=== PATIENT | female | born 1965 | race Caucasian/White ===

== ENCOUNTER → 2020-01-22 07:23 | Outpatient (BNVA) | payer OTHER, SELFPAY | PROVIDERS: PCP Nurse Practitioner Family; Visit Provider Student in an Organized Health Care Education/Training Program | DX: M65.331 Trigger finger, right middle finger (principal); G35 Multiple sclerosis; Z79.899 Other long term (current) drug therapy | CPT/HCPCS: 20550 ==

== ENCOUNTER → 2020-06-15 10:56 | Outpatient (BNVA) | payer OTHER, SELFPAY | PROVIDERS: PCP Nurse Practitioner Family; Visit Provider Obstetrics & Gynecology ==

== ENCOUNTER → 2020-07-06 10:17 | Outpatient (BNVA) | payer OTHER, SELFPAY | PROVIDERS: PCP Nurse Practitioner Family; Visit Provider Obstetrics & Gynecology | DX: Z30.432 Encounter for removal of intrauterine contraceptive device (principal) | CPT/HCPCS: 58301 ==

== ENCOUNTER 2020-10-26 09:21 | Emergency (ER) | payer OTHER, SELFPAY ==
--- NOTE | ~2020-10-26 | CT_ITS ---
EXAMINATION: CT ANGIOGRAM OF THE CHEST WITH AND WITHOUT CONTRAST (CT PULMONARY ANGIOGRAM FOR PE) CLINICAL INFORMATION: Reason for Exam elevated D-dimer. Covid positive. PE? COMPARISON: Previous chest x-ray from earlier the same day TECHNIQUE: Prior to contrast administration, noncontrast localization images were obtained. Subsequently, multidetector volumetric imaging was performed from the thoracic inlet to below the diaphragms following the administration of 65 mL Omnipaque 350 intravenous contrast. No contrast reaction reported Sagittal, coronal, and MIP oblique sagittal reformatted images were obtained on the CT workstation, uploaded to PACS, and reviewed. This CT examination was performed using dose optimization techniques as appropriate, variously including the following: *Automated exposure control *Adjustment of mA and/or kV according to patient size (this includes techniques or standardized protocols for targeted exams where dose is matched to indication/reason for exam; i.e. extremities or head) *Use of iterative reconstruction technique Total exam dose-length product 198 mGy-cm FINDINGS: QUALITY OF STUDY/CONTRAST BOLUS: Satisfactory. PULMONARY ARTERIES: No central or segmental pulmonary emboli. Evaluation of the lung bases is limited due to artifact from respiratory motion. There is question of a small subsegmental right lower lobe pulmonary embolism for example coronal constructed image 53 series 11 axial image 2 81-2 84 series 7. THORACIC AORTA: No aneurysm or dissection. LUNG: There are bilateral scattered peripheral infiltrates, greatest at the lung bases. Chest CT appearance is nonspecific but would be compatible with Covid infection. PLEURA: No pleural effusion or pneumothorax. MEDIASTINUM: Normal heart size. No pericardial effusion. No hilar or mediastinal lymphadenopathy. No evidence of septal bowing or right heart strain. CHEST WALL/AXILLA: There are bilateral breast implants. No axillary or internal mammary lymphadenopathy. OSSEOUS STRUCTURES: No acute or suspicious osseous abnormality. There are mild degenerative changes of the spine. UPPER ABDOMEN: Unremarkable. No reflux of contrast into the hepatic veins to suggest elevated right heart pressures. CT/CT angio chest PE protocol IMPRESSION: No evidence of large or central pulmonary embolism. Evaluation of smaller segmental and subsegmental pulmonary arteries is limited due to artifact from respiratory motion. Question small subsegmental right lower lobe pulmonary embolism. Bilateral peripheral infiltrates compatible with Covid infection. VTE: positive
--- NOTE | ~2020-10-26 | XR_ITS ---
EXAMINATION: XR CHEST CLINICAL INFORMATION: Dyspnea. COMPARISON: Chest 03/11/2017 TECHNIQUE: Frontal view of the chest was obtained. FINDINGS: The lungs are expanded patchy opacity seen throughout both and lower lobes suggestive of infiltrates. The upper lungs are clear. The heart size and pulmonary vascularity is normal no gross bony abnormality seen. XR/XR chest 1V IMPRESSION: Bilateral patchy infiltrates likely Covid disease.
[2020-10-26 09:39] VITALS: BP 96/68; PULSE 87; RESP 16; TEMP 36.6; O2SAT 93; BMI 22.6
--- NOTE | 2020-10-26 10:04 | ECG_ITS ---
Test Reason : FEVER Blood Pressure : / mmHG Vent. Rate : 080 BPM Atrial Rate : 080 BPM P-R Int : 122 ms QRS Dur : 080 ms QT Int : 384 ms P-R-T Axes : -04 048 046 degrees QTc Int : 442 ms Normal sinus rhythm Nonspecific T wave abnormality Abnormal ECG No previous ECGs available Referred By: Deisy Flores Electronically Signed By:ANABEL ROQUE
--- NOTE | 2020-10-26 10:31 | ED_ITS ---
HPI - General Adult General Chief complaint: Fever Stated complaint: covid + needs labs & xray Time Seen by Provider: 10/26/20 10:03 Source: patient Mode of arrival: ambulatory Limitations: no limitations History of Present Illness HPI narrative: Patient presents to ED for recurring fevers shows mild shortness of breath due to COVID. Started have symptom October 10 but was tested positive October 15. Patient states no swelling of lower extremities, calf pain, coughing up blood or pleuretic chest pain. Related Data Home Medications Medication Instructions Recorded Confirmed ascorbic acid (vitamin C) 500 mg 1 g PO DAILY tab 01/22/20 10/26/20 tablet biotin 5 mg capsule 5 mg PO DAILY 01/22/20 10/26/20 calcium carbonate 600 mg (1,500 1 tab PO DAILY 01/22/20 10/26/20 mg)-vitamin D3 200 unit tablet (Calcium 600 + D(3)) cholecalciferol (vitamin D3) 50 50 mcg PO DAILY 01/22/20 10/26/20 mcg (2,000 unit) capsule cyanocobalamin (vitamin B-12) 1,000 mcg PO DAILY 01/22/20 10/26/20 1,000 mcg capsule duloxetine 20 mg capsule,delayed 20 mg PO BID 01/22/20 10/26/20 release (Cymbalta) levonorgestrel 20 mcg/24 hours (6 INTRAUTERINE 01/22/20 10/26/20 yrs) 52 mg intrauterine device (Mirena) ocrelizumab 30 mg/mL intravenous 600 mg IV [id number] 01/22/20 10/26/20 solution (Ocrevus) Previous Rx's Medication Instructions Recorded atorvastatin 10 mg tablet 10 mg PO DAILY #30 cap 07/18/20 gabapentin 100 mg capsule 200 mg PO BEDTIME 30 Days #60 cap 10/18/20 amoxicillin 875 mg-potassium 1 tab PO BID 10 Days #20 tab 10/26/20 clavulanate 125 mg tablet (Augmentin) apixaban 5 mg (74 tabs) tablets in 5 mg PO PER PKG DIR #74 ea 10/26/20 a dose pack (Eliquis DVT-PE Treat 30D Start) dexamethasone 6 mg tablet 6 mg PO DAILY #10 tab 10/26/20 (Decadron) Allergies Allergy/AdvReac Type Severity Reaction Status Date / Time morphine [MORPHINE] Allergy Intermediate HIVES, Verified 07/06/20 10:23 vomiting oxycodone [OXYCODONE] Allergy Intermediate VOMITING Verified 07/06/20 10:23 acetaminophen [Percocet] Allergy Unknown hives Verified 07/06/20 10:23 benzonatate Allergy Unknown headaches Verified 07/06/20 10:23 meperidine [From Demerol] Allergy Unknown swelling Verified 07/06/20 10:23 NSAIDS (Non-Steroidal Allergy Unknown swelling Verified 07/06/20 10:23 Anti-Inflamma meloxicam AdvReac Unknown ankle Verified 07/06/20 10:23 swelling paroxetine [Paxil] AdvReac Unknown headaches Verified 07/06/20 10:23 Review of Systems Constitutional: Constitutional: Reports as per HPI and Reports no additional constitutional complaints Eyes: Eyes: Reports as per HPI and Reports no additional eye complaints ENT: Reports system reviewed and no additional complaints, except as documented and Reports as per HPI Cardiovascular: Cardiovascular: Reports as per HPI, Reports no additional cardiovascular complaints, Reports chest pain (Resolved) and Reports dyspnea (Resolved) Respiratory: Respiratory: Reports as per HPI, Reports no additional respiratory complaints and Reports dyspnea (Resolved) Gastrointestinal: Gastrointestinal: Reports as per HPI and Reports no additional gastrointestinal complaints Genitourinary: Genitourinary: Reports no additional female genitourinary complaints and Reports as per HPI Musculoskeletal: Musculoskeletal: Reports no additional musculoskeletal complaints and Reports as per HPI Neurologic: Reports system reviewed and no additional complaints, except as documented and Reports as per HPI Psychiatric: Psychiatric: Reports no additional psychiatric complaints and Reports as per HPI [facility] Past Medical History Medical History Stark's palsy Complex ovarian cyst Diverticulitis Dyslipidemia IBS (irritable bowel syndrome) Kidney stones Menopause Multiple sclerosis Myoma Neuropathy Physical exam Spinal cord lesion Surgical History History of adenoidectomy History of breast augmentation History of section History of shoulder surgery History of tonsillectomy History of umbilical hernia repair Family History Family History Father Heart disease CVD (cardiovascular disease) Mother HTN (hypertension) Maternal Grandfather No problems noted. Maternal Grandmother No problems noted. Paternal Grandfather No problems noted. Paternal Grandmother CVD (cardiovascular disease) Brother No problems noted. Brother No problems noted. Son No problems noted. Son Type 1 diabetes Social History Social History Alcohol intake: never Patient Tobacco Use Status: Tobacco use Unknown Advance Directives: No Advance Directives Information Provided: No Patient : No Physical Exam Vital Signs: Vital Signs: Last Vital Signs Temp 98.6 F 10/26/20 15:06 Pulse 76 10/26/20 15:06 Resp 18 10/26/20 15:06 BP 127/84 10/26/20 15:06 Pulse Ox 96 10/26/20 16:14 Body Mass Index 22.6 Const: General: cooperative, healthy appearing, comfortable, no acute distress, well developed, alert, awake and Physically active Orientation/consciousness: patient oriented x3 HENMT: Head: Yes normal to inspection, Yes No palpable skull fracture present, Yes normocephalic, Yes atraumatic and No abrasion Eyes: General: appearance normal, both eyes and all related structures Neck: Neck: Yes normal visual inspection, Yes full ROM, Yes no lymphadenopathy, Yes no meningeal signs, Yes trachea midline, Yes supple and No tender Chest: Chest palpation & inspection: normal inspection of the chest and normal palpation of entire chest wall Resp: Effort & Inspection: normal respiratory effort and able to speak in complete sentences Auscultation: clear to auscultation bilaterally Cardio: Jugular venous distension: no JVD Heart sounds: S1 normal heart sound present and S2 normal heart sound present GI: Inspection: Yes normal to inspection and No abdominal wall ecchymosis Palpation (GI): Soft to palpation, not firm, nontender, no guarding and not rigid : General: No CVA tenderness and Yes no CVA tenderness Back/Spine/Pelvis: Back: no CVA tenderness, No CVA tenderness and No back tenderness Skin: General skin exam: no rashes or lesions noted and elasticity normal Neuro: General: patient oriented x3, gait normal, no meningeal signs and CN's II-XI intact bilaterally Cranial nerves: Yes CN's II-XII intact bilaterally Extrem: Other: Lower extremities negative for swelling, pitting edema, calf te nderness General: Yes normal to inspection and Yes full ROM Psych: Appearance: grossly normal, well kempt and not disheveled Course Course Course Narrative: Will do COVID labs and chest x-ray. Reevaluation(s) Reevaluation #1: Patient O2 saturation on room air is 98%. On ambulation O2 saturation 96%. Due to elevated D-dimer patient was sent for chest CT which showed COVID ground-glass opacities with possible questionable right small pulmonary embolus. Patient started having symptoms of COVID since October 10. Spoke with hospitalist Dr. Sesay who states patient could be discharged with Eliquis but I need to confer with Dr. Flores. Dr. Flores spoke with ICU doctor, Dr. Kauffman of ICU who agrees patient could be discharged with Eliquis for the small PE. Patient informed to return to the ED immediately should any chest pain, shortness of breath, syncope, weakness, dizziness, any other concerning symptoms. EKG negative STEMI Time: 17:15 Medical Decision Making MDM Narrative Medical decision making narrative: COVID. PE Lab Data Result diagrams: 10/26/20 10:45 10/26/20 10:45 Labs: Lab Results 10/26/20 10/26/20 10/26/20 Range/Units 10:45 10:45 10:45 WBC 5.2 (4.8-10.8) X10*3/uL RBC 4.23 (4.20-5.50) X10*6/uL Hgb 12.4 (12.0-16.0) g/dl Hct 36.1 L (37-47) % MCV 85.3 (80-98) fL MCH 29.3 (27.0-33.0) pg MCHC 34.3 (31.0-35.0) g/dl RDW 12.8 (11.0-16.0) % Plt Count 344 (160-400) X10*3/uL MPV 9.1 L (9.4-12.3) fL Immature Gran % (Auto) 1.0 H (0.0-0.4) % Neut % (Auto) 72.5 (45-73) % Lymph % (Auto) 11.5 L (20-40) % [place] % (Auto) 14.8 H (2-11) % Eos % (Auto) 0.2 (0-4) % Baso % (Auto) 0.0 (0-2) % Lymph # (Auto) 0.6 L (1.2-4.9) X10*3/uL [place] # (Auto) 0.8 (0.1-1.2) X10*3/uL Eos # (Auto) 0.0 (0.0-0.4) X10*3/uL Baso # (Auto) 0.0 (0.0-0.2) X10*3/uL Abs Immat Gran (auto) 0.05 H (0.00-0.03) X10*3/uL Absolute Neuts (auto) 3.8 (2.0-8.3) X10*3/uL Absolute Nucleated RBC 0.000 (0.0-0.012) X10*3/uL Nucleated RBC % (auto) 0.0 (0.0-0.2) /100WBC PT (9.9-13.0) SEC INR (0.9-1.1) APTT (24.1-38.0) SEC D-Dimer NG/ML Sodium 136 (135-145) mmol/L Potassium 3.4 (3.3-5.1) mmol/L Chloride 102 (96-108) mmol/L Carbon Dioxide 24 (22-29) mmol/L Anion Gap 13 (12-20) BUN 14 (9-16) mg/dL Creatinine 0.68 (0.5-1.4) mg/dL Estim Creat Clear Calc 80.7 Estimated GFR > 60 Random Glucose 91 (60-115) mg/dL Lactic Acid (0.5-2.0) mmol/L Calcium 8.6 (8.4-10.2) mg/dL Magnesium (1.6-2.6) mg/dL Ferritin (10-250) ng/mL Total Bilirubin (0.0-1.0) mg/dL Direct Bilirubin (0.0-0.5) mg/dL AST (5-31) U/L ALT (0-31) U/L Alkaline Phosphatase (39-117) U/L Lactate Dehydrogenase (122-220) U/L Troponin I High Sens (<3.5-17.0) ng/L C-Reactive Protein 6.55 H (< or = 0.50) mg/dL Total Protein (6.5-8.0) g/dL Albumin (3.5-5.0) g/dL COVID-19 (MIKE) Negative (Negative) COVID-19 Clin Com See Note 10/26/20 10/26/20 10/26/20 Range/Units 10:45 10:45 10:45 WBC (4.8-10.8) X10*3/uL RBC (4.20-5.50) X10*6/uL Hgb (12.0-16.0) g/dl Hct (37-47) % MCV (80-98) fL MCH (27.0-33.0) pg MCHC (31.0-35.0) g/dl RDW (11.0-16.0) % Plt Count (160-400) X10*3/uL MPV (9.4-12.3) fL Immature Gran % (Auto) (0.0-0.4) % Neut % (Auto) (45-73) % Lymph % (Auto) (20-40) % [place] % (Auto) (2-11) % Eos % (Auto) (0-4) % Baso % (Auto) (0-2) % Lymph # (Auto) (1.2-4.9) X10*3/uL [place] # (Auto) (0.1-1.2) X10*3/uL Eos # (Auto) (0.0-0.4) X10*3/uL Baso # (Auto) (0.0-0.2) X10*3/uL Abs Immat Gran (auto) (0.00-0.03) X10*3/uL Absolute Neuts (auto) (2.0-8.3) X10*3/uL Absolute Nucleated RBC (0.0-0.012) X10*3/uL Nucleated RBC % (auto) (0.0-0.2) /100WBC PT (9.9-13.0) SEC INR (0.9-1.1) APTT (24.1-38.0) SEC D-Dimer NG/ML Sodium (135-145) mmol/L Potassium (3.3-5.1) mmol/L Chloride (96-108) mmol/L Carbon Dioxide (22-29) mmol/L Anion Gap (12-20) BUN (9-16) mg/dL Creatinine (0.5-1.4) mg/dL Estim Creat Clear Calc Estimated GFR Random Glucose (60-115) mg/dL Lactic Acid 0.8 (0.5-2.0) mmol/L Calcium (8.4-10.2) mg/dL Magnesium 2.0 (1.6-2.6) mg/dL Ferritin 670 H (10-250) ng/mL Total Bilirubin 0.6 (0.0-1.0) mg/dL Direct Bilirubin 0.2 (0.0-0.5) mg/dL AST 64 H (5-31) U/L ALT 80 H (0-31) U/L Alkaline Phosphatase 72 (39-117) U/L Lactate Dehydrogenase 395 H (122-220) U/L Troponin I High Sens 4.2 (<3.5-17.0) ng/L C-Reactive Protein (< or = 0.50) mg/dL Total Protein 6.0 L (6.5-8.0) g/dL Albumin 3.6 (3.5-5.0) g/dL COVID-19 (MIKE) (Negative) COVID-19 Clin Com 10/26/20 Range/Units 10:46 WBC (4.8-10.8) X10*3/uL RBC (4.20-5.50) X10*6/uL Hgb (12.0-16.0) g/dl Hct (37-47) % MCV (80-98) fL MCH (27.0-33.0) pg MCHC (31.0-35.0) g/dl RDW (11.0-16.0) % Plt Count (160-400) X10*3/uL MPV (9.4-12.3) fL Immature Gran % (Auto) (0.0-0.4) % Neut % (Auto) (45-73) % Lymph % (Auto) (20-40) % [place] % (Auto) (2-11) % Eos % (Auto) (0-4) % Baso % (Auto) (0-2) % Lymph # (Auto) (1.2-4.9) X10*3/uL [place] # (Auto) (0.1-1.2) X10*3/uL Eos # (Auto) (0.0-0.4) X10*3/uL Baso # (Auto) (0.0-0.2) X10*3/uL Abs Immat Gran (auto) (0.00-0.03) X10*3/uL Absolute Neuts (auto) (2.0-8.3) X10*3/uL Absolute Nucleated RBC (0.0-0.012) X10*3/uL Nucleated RBC % (auto) (0.0-0.2) /100WBC PT 12.5 (9.9-13.0) SEC INR 1.1 (0.9-1.1) APTT 30.4 (24.1-38.0) SEC D-Dimer 913 NG/ML Sodium (135-145) mmol/L Potassium (3.3-5.1) mmol/L Chloride (96-108) mmol/L Carbon Dioxide (22-29) mmol/L Anion Gap (12-20) BUN (9-16) mg/dL Creatinine (0.5-1.4) mg/dL Estim Creat Clear Calc Estimated GFR Random Glucose (60-115) mg/dL Lactic Acid (0.5-2.0) mmol/L Calcium (8.4-10.2) mg/dL Magnesium (1.6-2.6) mg/dL Ferritin (10-250) ng/mL Total Bilirubin (0.0-1.0) mg/dL Direct Bilirubin (0.0-0.5) mg/dL AST (5-31) U/L ALT (0-31) U/L Alkaline Phosphatase (39-117) U/L Lactate Dehydrogenase (122-220) U/L Troponin I High Sens (<3.5-17.0) ng/L C-Reactive Protein (< or = 0.50) mg/dL Total Protein (6.5-8.0) g/dL Albumin (3.5-5.0) g/dL COVID-19 (MIKE) (Negative) COVID-19 Clin Com ECG Data Interpretation: Normal sinus rhythm. Reticular 89. Pr interval 122. QRS 80. QTC 442. Negative Stemi Discharge Plan Discharge Clinical Impression: COVID, Pulmonary embolism Patient Disposition: Home, Self-Care Instructions: COVID-19 (Coronavirus Disease 2019) (ED) Additional Instructions: Your CT scan showed small pulmonary embolus in your right lung and confirmed C OVID (bilateral infiltrates) . He will be discharged with blood thinner called Sonya. Return to the ED for worsening chest pain, shortness of breath, passing out, swelling of lower extremities, calf pain, rectal bleeding, vomiting blood, or any other concerning symptoms. Prescriptions: Kali Hassan DVT-PE Treat 30D Start 5 mg (74 tabs) tablets,dose pack 5 mg PO PER PKG DIR Qty: 74 RF: 0 dexamethasone [Decadron] 6 mg tablet 6 mg PO DAILY Qty: 10 RF: 0 No Action atorvastatin 10 mg tablet 10 mg PO DAILY Qty: 30 RF: 4 gabapentin 100 mg capsule 200 mg PO BEDTIME 30 Days Qty: 60 RF: 3 amoxicillin-pot clavulanate [Augmentin] 875-125 mg tablet 1 tab PO BID 10 Days Qty: 20 RF: 0 duloxetine [Cymbalta] 20 mg capsule,delayed release(DR/EC) 20 mg PO BID RF: 0 Mirena 20 mcg/24 hours (6 yrs) 52 mg intrauterine device intrauterine RF: 0 Ocrevus 30 mg/mL solution 600 mg IV [id number] RF: 0 cyanocobalamin (vitamin B-12) 1,000 mcg capsule 1,000 mcg PO DAILY RF: 0 biotin 5 mg capsule 5 mg PO DAILY RF: 0 ascorbic acid (vitamin C) 500 mg tablet 1 g PO DAILY RF: 0 cholecalciferol (vitamin D3) 50 mcg (2,000 unit) capsule 50 mcg PO DAILY RF: 0 calcium carbonate-vitamin D3 [Calcium 600 + D(3)] 600 mg(1,500mg) -200 unit tablet 1 tab PO DAILY RF: 0 Referrals: Constantino Jain, [employer] [facility] [Primary Care Provider] - 2 days (COVID with small pulmonary embolus) Interventions: ED Discharge Assessment Last Done: 10/26/20 17:35 Discharge Date/Time: 10/26/20 17:37
[2020-10-26 10:52] LABS: Eosinophils Percent Auto 0.2 % (0-4); Hematocrit 36.1 % (37-47); Hemoglobin 12.4 g/dl (12.0-16.0); Imm Gran Abs Auto 0.05 X10*3/uL (0.00-0.03); Lymphocytes Absolute Auto 0.6 X10*3/uL (1.2-4.9); Lymphocytes Percent Auto 11.5 % (20-40); MANUAL DIFF FLAG NO; Mean Corpuscular HGB Conc 34.3 g/dl (31.0-35.0); Mean Corpuscular Hemoglobin 29.3 pg (27.0-33.0); Mean Corpuscular Volume 85.3 fL (80-98); Mean Platelet Volume 9.1 fL (9.4-12.3); Monocytes Absolute Auto 0.8 X10*3/uL (0.1-1.2); Monocytes Percent Auto 14.8 % (2-11); Neutrophils Absolute Auto 3.8 X10*3/uL (2.0-8.3); Neutrophils Percent Auto 72.5 % (45-73); Platelet Count 344 X10*3/uL (160-400); Red Blood Count 4.23 X10*6/uL (4.20-5.50); Red Cell Distribution Width 12.8 % (11.0-16.0); White Blood Count 5.2 X10*3/uL (4.8-10.8)
[2020-10-26 11:04] LABS: Lactic Acid 0.8 mmol/L (0.5-2.0)
[2020-10-26 11:08] LABS: COVID-19 Test Negative (Negative)
[2020-10-26 11:09] LABS: Anion Gap 13 (12-20); Blood Urea Nitrogen 14 mg/dL (9-16); C Reactive Protein 6.55 mg/dL (< or = 0.50); Calcium 8.6 mg/dL (8.4-10.2); Carbon Dioxide 24 mmol/L (22-29); Chloride 102 mmol/L (96-108); Creatinine Clr Calc Pharmacy 80.7; Estimated Glomerular Filt Rate > 60; Glucose Random 91 mg/dL (60-115); Potassium 3.4 mmol/L (3.3-5.1); Sodium 136 mmol/L (135-145)
[2020-10-26 11:11] LABS: Alanine Aminotransferase 80 U/L (0-31); Albumin Level 3.6 g/dL (3.5-5.0); Alkaline Phosphatase 72 U/L (39-117); Aspartate Amino Transferase 64 U/L (5-31); Bilirubin Direct 0.2 mg/dL (0.0-0.5); Bilirubin Total 0.6 mg/dL (0.0-1.0); Lactate Dehydrogenase 395 U/L (122-220)
[2020-10-26 11:12] LABS: Troponin-I High Sensitivity 4.2 ng/L (<3.5-17.0)
[2020-10-26 11:28] LABS: Ferritin 670 ng/mL (10-250)
[2020-10-26 11:34] LABS: D Dimer 913 NG/ML
[2020-10-26 13:14] VITALS: BP 129/75; PULSE 77; RESP 15; TEMP 37; O2SAT 96
[2020-10-26] MEDS: iohexoL 350 MG/ML 100 ML INFUS..BTL 65 ML IV (13:26)
[2020-10-26 15:06] VITALS: BP 127/84; PULSE 76; RESP 18; TEMP 37; O2SAT 98
[2020-10-26 16:12] LABS: INTERNATIONAL NORM RATIO 1.1 (0.9-1.1); Prothrombin Time 12.5 SEC (9.9-13.0)
[2020-10-26 16:14] VITALS: O2SAT 96
[2020-10-26 16:15] LABS: Partial Thromboplastin Time 30.4 SEC (24.1-38.0)
== END 2020-10-26 17:37 | disposition home or self-care (01) ==
PROVIDERS: Physician Assistant; Emergency Provider Emergency Medicine; PCP Nurse Practitioner Family
DX: U07.1 COVID-19 (principal); I26.99 Other pulmonary embolism without acute cor pulmonale; R50.9 Fever, unspecified
CPT/HCPCS: 36415; 71045; 71275; 80048; 80076; 82728; 83605; 83615; 83735; 84484; 85025; 85379; 85610; 85730; 86140; 87040; 87205; 87635; 93005; 99284; Q9967

== ENCOUNTER 2020-11-01 13:59 | Emergency (ER) | payer OTHER, SELFPAY ==
--- NOTE | ~2020-11-01 | XR_ITS ---
EXAMINATION: XR CHEST CLINICAL INFORMATION: Prior infiltrates COMPARISON: Prior chest radiograph 10/26/2020 and TECHNIQUE: Frontal view of the chest was obtained. FINDINGS: Compared to the prior chest radiograph, there is been some improvement in appearances. Bibasilar infiltrates persist. Of course, more extensive infiltrates were seen on the CT scan which is much more sensitive than the chest radiograph. XR/XR chest 1V IMPRESSION: Chest radiograph demonstrates improvement appearances with residual lower lobe infiltrates.
[2020-11-01 14:32] VITALS: BP 113/78; PULSE 86; RESP 18; TEMP 36.9; O2SAT 96; BMI 23.1
--- NOTE | 2020-11-01 17:53 | ED_ITS ---
HPI - Recheck/Abnormal Lab/Rx General Chief Complaint: Recheck/Abnormal Lab/Rx Stated Complaint: positive blood cultures Time Seen by Provider: 11/01/20 16:40 Source: patient Mode of arrival: ambulatory Limitations: no limitations History of Present Illness HPI narrative: 55-year-old female with a past medical history of MS complaints of abnormal blood cultures. Patient was seen here on October 26 and diagnos ed with COVID pneumonia with PE. She was started on Eliquis and discharged home. Patient tells me she initially tested positive on October 13. On day 13 she was having continued fevers with SOB, chest tightness, cough prompting ED visit. She had blood culture sent the day. Patient tells me she spoke to her primary care doctor after discharge. She had been taking her Eliquis and dexamethasone course. He did start her on a 5 day course of Levaquin which she completed yesterday. She tells me she has not have a fever and greater than 3 days. She is still having continued cough, chest tightness and shortness of breath times. Related Data Home Medications Medication Instructions Recorded Confirmed ascorbic acid (vitamin C) 500 mg 1 g PO DAILY tab 01/22/20 11/01/20 tablet cholecalciferol (vitamin D3) 50 50 mcg PO DAILY 01/22/20 11/01/20 mcg (2,000 unit) capsule cyanocobalamin (vitamin B-12) 1,000 mcg PO DAILY 01/22/20 11/01/20 1,000 mcg capsule duloxetine 20 mg capsule,delayed 40 mg PO BEDTIME 01/22/20 11/01/20 release (Cymbalta) levonorgestrel 20 mcg/24 hours (6 INTRAUTERINE 01/22/20 10/26/20 yrs) 52 mg intrauterine device (Mirena) ocrelizumab 30 mg/mL intravenous 600 mg IV [id number] 01/22/20 10/26/20 solution (Ocrevus) Previous Rx's Medication Instructions Recorded atorvastatin 10 mg tablet 10 mg PO DAILY #30 cap 07/18/20 gabapentin 100 mg capsule 200 mg PO BEDTIME 30 Days #60 cap 10/18/20 apixaban 5 mg (74 tabs) tablets in 5 mg PO PER PKG DIR #74 ea 10/26/20 a dose pack (Eliquis DVT-PE Treat 30D Start) dexamethasone 6 mg tablet 6 mg PO DAILY #10 tab 10/26/20 (Decadron) Allergies Allergy/AdvReac Type Severity Reaction Status Date / Time morphine [MORPHINE] Allergy Intermediate HIVES, Verified 07/06/20 10:23 vomiting oxycodone [OXYCODONE] Allergy Intermediate VOMITING Verified 07/06/20 10:23 acetaminophen [Percocet] Allergy Unknown hives Verified 07/06/20 10:23 benzonatate Allergy Unknown headaches Verified 07/06/20 10:23 meperidine [From Demerol] Allergy Unknown swelling Verified 07/06/20 10:23 NSAIDS (Non-Steroidal Allergy Unknown swelling Verified 07/06/20 10:23 Anti-Inflamma meloxicam AdvReac Unknown ankle Verified 07/06/20 10:23 swelling paroxetine [Paxil] AdvReac Unknown headaches Verified 07/06/20 10:23 Review of Systems Review of Systems: Yes all other systems are reviewed and are negative Constitutional: Constitutional: Reports no additional constitutional complaints, Denies body ache(s), Denies chills, Denies fever(s), Denies headache(s) and Denies weakness Eyes: Eyes: Reports no additional eye complaints and Denies change in vision ENT: Reports system reviewed and no additional complaints, except as d ocumented, Denies dizziness, Denies headache(s), Denies nasal congestion, Denies nasal discharge and Denies neck pain Cardiovascular: Cardiovascular: Reports no additional cardiovascular complaints, Reports chest pain (chest tightness), Denies leg edema and Reports dyspnea Respiratory: Respiratory: Reports no additional respiratory complaints, Reports cough and Reports dyspnea Gastrointestinal: Gastrointestinal: Reports no additional gastrointestinal complaints, Denies abdominal pain, Denies diarrhea, Denies nausea and Denies vomiting Genitourinary: Genitourinary: Reports no additional female genitourinary complaints and Denies urinary incontinence Musculoskeletal: Musculoskeletal: Reports no additional musculoskeletal c omplaints, Denies back pain, Denies arthralgias, Denies joint swelling, Denies neck pain, Denies numbness and Denies tingling Integumentary/Breasts: Skin/Breast: Reports system reviewed and no additional complaints, except as docu and Denies rash Neurologic: Reports system reviewed and no additional complaints, except as documented, Denies Abnormal speech present, Denies dizziness, Denies headache(s), Denies numbness, Denies tingling and Denies weakness [facility] Past Medical History Attestation statement: The following information was validated with the patient. Source: old records reviewed and nursing notes reviewed Medical History Stark's palsy Complex ovarian cyst Diverticulitis Dyslipidemia IBS (irritable bowel syndrome) Kidney stones Menopause Multiple sclerosis Myoma Neuropathy Physical exam Spinal cord lesion Surgical History History of adenoidectomy History of breast augmentation History of section History of shoulder surgery History of tonsillectomy History of umbilical hernia repair Family History Family History Father Heart disease CVD (cardiovascular disease) Mother HTN (hypertension) Maternal Grandfather No problems noted. Maternal Grandmother No problems noted. Paternal Grandfather No problems noted. Paternal Grandmother CVD (cardiovascular disease) Brother No problems noted. Brother No problems noted. Son No problems noted. Son Type 1 diabetes Social History Social History Alcohol intake: never Patient Tobacco Use Status: Tobacco use Unknown Advance Directives: No Advance Directives Information Provided: No Patient : No Physical Exam Vital Signs: Vital Signs: Last Vital Signs Temp 98.7 F 11/01/20 19:30 Pulse 78 11/01/20 19:30 Resp 18 11/01/20 19:30 BP 109/72 11/01/20 19:30 Pulse Ox 97 11/01/20 19:30 Body Mass Index 23.1 Const: General: cooperative, healthy appearing, comfortable and no acute distress Orientation/consciousness: patient oriented x3 Limitations: no limitations HENMT: Head: Yes normal to inspection Ears: hearing grossly normal bilaterally General nose exam: Normal external nose present Face and sinus: Yes normal facial exam Mouth: Normal oral and palatal mucosa present Throat: Yes posterior oropharynx normal Eyes: General: appearance normal, both eyes and all related structures Pupils: Equal, round and reactive pupils present Neck: Neck: Yes normal visual inspection Chest: Chest palpation & inspection: normal inspection of the chest Resp: Effort & Inspection: normal respiratory effort Auscultation: clear to auscultation bilaterally Cardio: Rate: regular rate Rhythm: regular rhythm Peripheral pulses: Peripheral pulses 2+ throughout GI: Inspection: Yes normal to inspection Palpation (GI): Soft to palpation and nontender Auscultation: normal bowel sounds Back/Spine/Pelvis: Thoracic/Lumbar Spine: thoracic and lumbar spine normal to inspection Skin: General skin exam: no rashes or lesions noted Neuro: General: patient oriented x3, no focal motor deficits and normal sensation to monofilament Cranial nerves: Yes Equal, round and reactive pupils present Cognition (Neuro): normal cognition Speech: No Abnormal speech present Gait exam (Neuro): Normal gait present Motor exam (neuro): 5/5 motor strength present throughout Extrem: General: Yes normal to inspection, Yes no pedal edema and Yes no calf tenderness Course Course Course Narrative: 54 yo female recovered from COVID but complicated by a bilateral pneumonia and pulmonary embolism is status post course of Levaquin and dexamethasone currently on Eliquis here after being called with reports of Gram-negative rods and 1 of 2 blood cultures. Patient tells me she has not had a fever in 3 days. She still is having continued cough, shortness of breath and chest pain. Vital signs are stable. Exam is benign. Will repeat labs, blood cultures, CXR, UA, covid screen. Antibiotics given -1829-d/w Dr Woodruff. Patient is now 6 days out from +bcx. Second bcx was negative. She completed a five day course of levaquin outpatient yesterday. Will repeat labs-disposition pending. Blood culture shows gram negative rods. No identification or susceptibility identified. Spoke to micro who tell me the sample was sent to [facility] for this on 10/30 and it is not resulted. They will contact for update. 2100-reviewed labs. No leukocytosis. Normal lactic acid. Follow up for additional labs actually are improved when compared to previous. UA shows no evidence of infection. Chest x-ray shows improving pneumonia. The case was discussed with attending Dr Woodruff. The blood cultures were from approximately 6 days ago. The patient clinically appears to be improved and did complete a course of Levaquin outpatient. At this point I do not feel like she needs to be admitted to the hospital and her repeat blood cultures were sent which we can follow. I discussed this at length with the patient. She is very comfortable going home and following up with her blood cultures. I did instruct her to return if she were to develop a fever or feel like her symptoms are worsening. Comfortable with plan for discharge MDM - Recheck/Abnormal Lab/Rx Medical Records Attestation: I reviewed the patient's medical records. Lab Data Attestation: I reviewed the patient's lab results. Result diagrams: 11/01/20 18:45 11/01/20 18:45 Labs: Lab Results 11/01/20 11/01/20 11/01/20 Range/Units 18:45 18:45 18:45 WBC 10.1 (4.8-10.8) X10*3/uL RBC 4.46 (4.20-5.50) X10*6/uL Hgb 13.0 (12.0-16.0) g/dl Hct 38.6 (37-47) % MCV 86.5 (80-98) fL MCH 29.1 (27.0-33.0) pg MCHC 33.7 (31.0-35.0) g/dl RDW 12.8 (11.0-16.0) % Plt Count 408 H (160-400) X10*3/uL MPV 8.9 L (9.4-12.3) fL Immature Gran % (Auto) 4.2 H (0.0-0.4) % Neut % (Auto) 75.9 H (45-73) % Lymph % (Auto) 12.7 L (20-40) % Miller % (Auto) 7.0 (2-11) % Eos % (Auto) 0.0 (0-4) % Baso % (Auto) 0.2 (0-2) % Lymph # (Auto) 1.3 (1.2-4.9) X10*3/uL Miller # (Auto) 0.7 (0.1-1.2) X10*3/uL Eos # (Auto) 0.0 (0.0-0.4) X10*3/uL Baso # (Auto) 0.0 (0.0-0.2) X10*3/uL Abs Immat Gran (auto) 0.42 H (0.00-0.03) X10*3/uL Absolute Neuts (auto) 7.6 (2.0-8.3) X10*3/uL Absolute Nucleated RBC 0.000 (0.0-0.012) X10*3/uL Nucleated RBC % (auto) 0.0 (0.0-0.2) /100WBC Sodium 137 (135-145) mmol/L Potassium 4.5 D (3.3-5.1) mmol/L Chloride 101 (96-108) mmol/L Carbon Dioxide 27 (22-29) mmol/L Anion Gap 14 (12-20) BUN 12 (9-16) mg/dL Creatinine 0.66 (0.5-1.4) mg/dL Estim Creat Clear Calc 83.1 Estimated GFR > 60 Random Glucose 171 H (60-115) mg/dL Lactic Acid 0.9 (0.5-2.0) mmol/L Calcium 9.6 D (8.4-10.2) mg/dL Ferritin 375 H (10-250) ng/mL Total Bilirubin 0.6 (0.0-1.0) mg/dL Direct Bilirubin 0.2 (0.0-0.5) mg/dL AST 30 D (5-31) U/L ALT 90 H (0-31) U/L Alkaline Phosphatase 78 (39-117) U/L Lactate Dehydrogenase 276 H (122-220) U/L C-Reactive Protein 1.15 H (< or = 0.50) mg/dL Total Protein 6.4 L (6.5-8.0) g/dL Albumin 3.8 (3.5-5.0) g/dL Procalcitonin ng/mL Urine Color Urine Appearance Urine pH (5.0-8.0) Ur Specific [place] (1.005-1.025) Urine Protein (NEG-TRACE) MG/DL Urine Glucose (UA) (NEG) MG/DL Urine Ketones (NEG) MG/DL Urine Blood (NEG) Urine Nitrite (NEG) Ur Leukocyte Esterase (NEG) COVID-19 (MIKE) (Negative) COVID-19 Clin Com 11/01/20 11/01/20 11/01/20 Range/Units 18:45 18:47 19:27 WBC (4.8-10.8) X10*3/uL RBC (4.20-5.50) X10*6/uL Hgb (12.0-16.0) g/dl Hct (37-47) % MCV (80-98) fL MCH (27.0-33.0) pg MCHC (31.0-35.0) g/dl RDW (11.0-16.0) % Plt Count (160-400) X10*3/uL MPV (9.4-12.3) fL Immature Gran % (Auto) (0.0-0.4) % Neut % (Auto) (45-73) % Lymph % (Auto) (20-40) % Miller % (Auto) (2-11) % Eos % (Auto) (0-4) % Baso % (Auto) (0-2) % Lymph # (Auto) (1.2-4.9) X10*3/uL Miller # (Auto) (0.1-1.2) X10*3/uL Eos # (Auto) (0.0-0.4) X10*3/uL Baso # (Auto) (0.0-0.2) X10*3/uL Abs Immat Gran (auto) (0.00-0.03) X10*3/uL Absolute Neuts (auto) (2.0-8.3) X10*3/uL Absolute Nucleated RBC (0.0-0.012) X10*3/uL Nucleated RBC % (auto) (0.0-0.2) /100WBC Sodium (135-145) mmol/L Potassium (3.3-5.1) mmol/L Chloride (96-108) mmol/L Carbon Dioxide (22-29) mmol/L Anion Gap (12-20) BUN (9-16) mg/dL Creatinine (0.5-1.4) mg/dL Estim Creat Clear Calc Estimated GFR Random Glucose (60-115) mg/dL Lactic Acid (0.5-2.0) mmol/L Calcium (8.4-10.2) mg/dL Ferritin (10-250) ng/mL Total Bilirubin (0.0-1.0) mg/dL Direct Bilirubin (0.0-0.5) mg/dL AST (5-31) U/L ALT (0-31) U/L Alkaline Phosphatase (39-117) U/L Lactate Dehydrogenase (122-220) U/L C-Reactive Protein (< or = 0.50) mg/dL Total Protein (6.5-8.0) g/dL Albumin (3.5-5.0) g/dL Procalcitonin 0.12 ng/mL Urine Color YELLOW Urine Appearance HAZY Urine pH 6.0 (5.0-8.0) Ur Specific [place] 1.025 (1.005-1.025) Urine Protein NEG (NEG-TRACE) MG/DL Urine Glucose (UA) NEG (NEG) MG/DL Urine Ketones NEG (NEG) MG/DL Urine Blood NEG (NEG) Urine Nitrite NEG (NEG) Ur Leukocyte Esterase NEG (NEG) COVID-19 (MIKE) Negative (Negative) COVID-19 Clin Com See Note Imaging Data Chest x-ray: Attestation: I personally reviewed and interpreted this imaging study as follows: Radiologist's impression: EXAMINATION: XR CHEST CLINICAL INFORMATION: Prior infiltrates COMPARISON: Prior chest radiograph 10/26/2020 and TECHNIQUE: Frontal view of the chest was obtained. FINDINGS: Compared to the prior chest radiograph, there is been some improvement in appearances. Bibasilar infiltrates persist. Of course, more extensive infiltrates were seen on the CT scan which is much more sensitive than the chest radiograph. XR/XR chest 1V IMPRESSION: Chest radiograph demonstrates improvement appearances with residual lower lobe infiltrates. Discharge Plan Discharge Clinical Impression: Abnormal laboratory test, COVID-19 Patient Disposition: Home, Self-Care Instructions: COVID-19 (Coronavirus Disease 2019) (ED) Additional Instructions: You were told to return to the emergency department for an abnormal blood culture. One of 2 of your blood culture showed bacteria. You were treated with outpatient antibiotics for 5 days by yourr primary care doctor. This is likely sufficient for treatment. We did repeat these labs and send them down the microbiology lab. If there is any bacteria we will call you back in the next several days. Your repeat lab work today looks normal. Her chest x-ray shows improving pneumonia. Your urine test is normal Prescriptions: No Action atorvastatin 10 mg tablet 10 mg PO DAILY Qty: 30 RF: 4 gabapentin 100 mg capsule 200 mg PO BEDTIME 30 Days Qty: 60 RF: 3 Eliquis DVT-PE Treat 30D Start 5 mg (74 tabs) tablets,dose pack 5 mg PO PER PKG DIR Qty: 74 RF: 0 dexamethasone [Decadron] 6 mg tablet 6 mg PO DAILY Qty: 10 RF: 0 duloxetine [Cymbalta] 20 mg capsule,delayed release(DR/EC) 40 mg PO BEDTIME RF: 0 Mirena 20 mcg/24 hours (6 yrs) 52 mg intrauterine device intrauterine RF: 0 Ocrevus 30 mg/mL solution 600 mg IV [id number] RF: 0 cyanocobalamin (vitamin B-12) 1,000 mcg capsule 1,000 mcg PO DAILY RF: 0 ascorbic acid (vitamin C) 500 mg tablet 1 g PO DAILY RF: 0 cholecalciferol (vitamin D3) 50 mcg (2,000 unit) capsule 50 mcg PO DAILY RF: 0 Referrals: Constantino Jain, [employer] [Primary Care Provider] - 2 days Interventions: ED Discharge Assessment Last Done: 11/01/20 21:08 Discharge Date/Time: 11/01/20 21:09
[2020-11-01 18:52] LABS: MANUAL DIFF FLAG NO
[2020-11-01 18:54] LABS: Basophils Percent Auto 0.2 % (0-2); Hematocrit 38.6 % (37-47); Imm Gran Abs Auto 0.42 X10*3/uL (0.00-0.03); Imm Gran Pct Auto 4.2 % (0.0-0.4); Lymphocytes Absolute Auto 1.3 X10*3/uL (1.2-4.9); Lymphocytes Percent Auto 12.7 % (20-40); Mean Corpuscular HGB Conc 33.7 g/dl (31.0-35.0); Mean Corpuscular Hemoglobin 29.1 pg (27.0-33.0); Mean Corpuscular Volume 86.5 fL (80-98); Mean Platelet Volume 8.9 fL (9.4-12.3); Monocytes Absolute Auto 0.7 X10*3/uL (0.1-1.2); Neutrophils Absolute Auto 7.6 X10*3/uL (2.0-8.3); Neutrophils Percent Auto 75.9 % (45-73); Platelet Count 408 X10*3/uL (160-400); Red Blood Count 4.46 X10*6/uL (4.20-5.50); Red Cell Distribution Width 12.8 % (11.0-16.0); White Blood Count 10.1 X10*3/uL (4.8-10.8)
[2020-11-01 19:04] LABS: Lactic Acid 0.9 mmol/L (0.5-2.0)
[2020-11-01 19:08] LABS: Alanine Aminotransferase 90 U/L (0-31); Albumin Level 3.8 g/dL (3.5-5.0); Alkaline Phosphatase 78 U/L (39-117); Anion Gap 14 (12-20); Aspartate Amino Transferase 30 U/L (5-31); Bilirubin Direct 0.2 mg/dL (0.0-0.5); Bilirubin Total 0.6 mg/dL (0.0-1.0); Blood Urea Nitrogen 12 mg/dL (9-16); C Reactive Protein 1.15 mg/dL (< or = 0.50); Calcium 9.6 mg/dL (8.4-10.2); Carbon Dioxide 27 mmol/L (22-29); Chloride 101 mmol/L (96-108); Creatinine Clr Calc Pharmacy 83.1; Estimated Glomerular Filt Rate > 60; Glucose Random 171 mg/dL (60-115); Lactate Dehydrogenase 276 U/L (122-220); Potassium 4.5 mmol/L (3.3-5.1); Sodium 137 mmol/L (135-145); Total Protein 6.4 g/dL (6.5-8.0)
--- NOTE | 2020-11-01 19:11 | PC.NURSE ---
ASSUMED CARE OF PT AT THIS TIME. BC OBTAINED AT THIS TIME ROCEPHIN NOT GIVEN BY PREVIOUS NURSE. IV NOT STARTED.
[2020-11-01] MEDS: cefTRIAXone sodium 1 GM in 0.9 % Sodium Chloride 50 ML IV (19:16)
--- NOTE | 2020-11-01 19:18 | PHA.MEDREC ---
Pharmacy Consult ? Medication Reconciliation Pharmacy has completed the medication reconciliation. Pt is on her last day of 10mg load for eliquis.
[2020-11-01 19:24] LABS: COVID-19 Test Negative (Negative); IDNOW Serial# 55D5AD1C
[2020-11-01 19:28] LABS: Procalcitonin 0.12 ng/mL
[2020-11-01 19:29] LABS: Ferritin 375 ng/mL (10-250)
[2020-11-01 19:30] VITALS: BP 109/72; PULSE 78; RESP 18; TEMP 37.1; O2SAT 97
--- NOTE | 2020-11-01 19:32 | PC.NURSE ---
IV PLACED TO LAC, ROCEPHIN UP AND RUNNING W/O DIFFICULTY SITE INTACT. UA SENT TO LAB. WILL CONTINUE TO MONITO RPT.
[2020-11-01 19:35] LABS: Appearance Urine HAZY; Color Urine YELLOW; Glucose Urine UA NEG (NEG); Leukocyte Esterase Urine NEG (NEG); Nitrite Urine NEG (NEG); Specific Gravity - Urine 1.025 (1.005-1.025); Urine Blood NEG (NEG); Urine Ketones NEG (NEG); Urine Protein NEG (NEG-TRACE)
== END 2020-11-01 21:09 | disposition home or self-care (01) ==
PROVIDERS: Nurse Practitioner Family; Emergency Provider Emergency Medicine Emergency Medical Services; PCP Nurse Practitioner Family
DX: U07.1 COVID-19 (principal); R79.89 Other specified abnormal findings of blood chemistry; R06.02 Shortness of breath; Z79.899 Other long term (current) drug therapy; Z79.01 Long term (current) use of anticoagulants
CPT/HCPCS: 36415; 71045; 80048; 80076; 81003; 82728; 83605; 83615; 84145; 85025; 86140; 87040; 87635; 96365; 99283; 99284; J0696

== ENCOUNTER 2020-11-14 12:00 | Outpatient (REF) | payer OTHER, SELFPAY ==
--- NOTE | ~2020-11-14 | XR_ITS ---
EXAMINATION: XR CHEST CLINICAL INFORMATION: Pulmonary embolism. Covid positive. COMPARISON: Previous chest x-ray most recent 11/01/[address] a 10/26/2020 TECHNIQUE: 2 views of the chest were obtained. FINDINGS: The cardiac and mediastinal contours are normal. There is interval improvement in the bilateral infiltrates. There is no pleural effusion or pneumothorax. Bony structures are unremarkable. XR/XR chest 2V IMPRESSION: Improving bilateral infiltrates.
[2020-11-14 13:56] LABS: MANUAL DIFF FLAG NO
[2020-11-14 14:00] LABS: Basophils Percent Auto 0.3 % (0-2); Eosinophils Absolute Auto 0.1 X10*3/uL (0.0-0.4); Eosinophils Percent Auto 0.7 % (0-4); Hematocrit 37.1 % (37-47); Imm Gran Abs Auto 0.05 X10*3/uL (0.00-0.03); Imm Gran Pct Auto 0.7 % (0.0-0.4); Lymphocytes Absolute Auto 2.5 X10*3/uL (1.2-4.9); Lymphocytes Percent Auto 32.9 % (20-40); Mean Corpuscular HGB Conc 32.3 g/dl (31.0-35.0); Mean Corpuscular Hemoglobin 29.2 pg (27.0-33.0); Mean Corpuscular Volume 90.3 fL (80-98); Mean Platelet Volume 9.6 fL (9.4-12.3); Monocytes Absolute Auto 0.8 X10*3/uL (0.1-1.2); Monocytes Percent Auto 10.3 % (2-11); Neutrophils Absolute Auto 4.1 X10*3/uL (2.0-8.3); Neutrophils Percent Auto 55.1 % (45-73); Platelet Count 302 X10*3/uL (160-400); Red Blood Count 4.11 X10*6/uL (4.20-5.50); Red Cell Distribution Width 13.7 % (11.0-16.0); White Blood Count 7.5 X10*3/uL (4.8-10.8)
[2020-11-14 14:42] LABS: Alanine Aminotransferase 43 U/L (0-31); Albumin Level 4.2 g/dL (3.5-5.0); Alkaline Phosphatase 82 U/L (39-117); Anion Gap 12 (12-20); Aspartate Amino Transferase 27 U/L (5-31); Bilirubin Total < 0.2 mg/dL (0.0-1.0); Blood Urea Nitrogen 18 mg/dL (9-16); Calcium 9.3 mg/dL (8.4-10.2); Carbon Dioxide 25 mmol/L (22-29); Chloride 111 mmol/L (96-108); Cholesterol 236 mg/dL; Estimated Glomerular Filt Rate > 60; Glucose Fasting 106 mg/dL (60-99); HDL Cholesterol 74 mg/dL; LDL Cholesterol Calculated 152 mg/dl; Potassium 4.3 mmol/L (3.3-5.1); Sodium 144 mmol/L (135-145); Total Protein 6.9 g/dL (6.5-8.0); Triglycerides 52 mg/dL
[2020-11-14 14:47] LABS: TSH reflex Free T4 1.15 uIU/mL (0.32-4.0)
== END 2020-11-14 12:01 | disposition home or self-care (01) ==
LOC: HO.HMGCX 12:00
PROVIDERS: PCP Nurse Practitioner Family; Visit Provider Nurse Practitioner Family
DX: Z00.00 Encounter for general adult medical examination without abnormal findings (principal); I26.99 Other pulmonary embolism without acute cor pulmonale; U07.1 COVID-19; J18.9 Pneumonia, unspecified organism; R50.9 Fever, unspecified; Z78.0 Asymptomatic menopausal state
CPT/HCPCS: 36415; 71046; 80053; 80061; 82306; 84443; 85025

== ENCOUNTER 2020-12-08 12:08 | Outpatient (REF) | payer OTHER, SELFPAY ==
--- NOTE | ~2020-12-08 | XR_ITS ---
EXAMINATION: XR CHEST CLINICAL INFORMATION: Pneumonia COMPARISON: CXR 11/14/2020 TECHNIQUE: 2 views of the chest were obtained. FINDINGS: The cardiac and mediastinal contours are normal. The lungs are clear. The previously identified bibasilar infiltrates have resolved. There is no pleural effusion or pneumothorax. There is mild curvature of the midthoracic spine to the right and degenerative change. XR/XR chest 2V IMPRESSION: Normal chest.
== END 2020-12-08 12:09 | disposition home or self-care (01) ==
LOC: HO.HMGCX 12:08
PROVIDERS: PCP Nurse Practitioner Family; Visit Provider Nurse Practitioner Family
DX: U09.9 Post COVID-19 condition, unspecified (principal); J18.9 Pneumonia, unspecified organism
CPT/HCPCS: 71046

== ENCOUNTER → 2020-12-13 14:08 | Outpatient (BNVA) | payer OTHER, SELFPAY | PROVIDERS: PCP Nurse Practitioner Family; Visit Provider Internal Medicine ==

== ENCOUNTER → 2021-01-12 14:32 | Outpatient (BNVA) | payer OTHER, SELFPAY | PROVIDERS: PCP Nurse Practitioner Family; Visit Provider Internal Medicine ==

== ENCOUNTER 2021-04-12 12:54 | Outpatient (REF) | payer OTHER, SELFPAY ==
[2021-04-12 13:16] LABS: MANUAL DIFF FLAG NO
[2021-04-12 13:46] LABS: Basophils Percent Auto 0.8 % (0-2); Eosinophils Absolute Auto 0.1 X10*3/uL (0.0-0.4); Hemoglobin 12.9 g/dl (12.0-16.0); Imm Gran Abs Auto 0.01 X10*3/uL (0.00-0.03); Imm Gran Pct Auto 0.2 % (0.0-0.4); Lymphocytes Absolute Auto 1.8 X10*3/uL (1.2-4.9); Lymphocytes Percent Auto 34.4 % (20-40); Mean Corpuscular HGB Conc 33.1 g/dl (31.0-35.0); Mean Corpuscular Hemoglobin 29.3 pg (27.0-33.0); Mean Corpuscular Volume 88.4 fL (80.0-98.0); Mean Platelet Volume 9.7 fL (9.4-12.3); Monocytes Absolute Auto 0.5 X10*3/uL (0.1-1.2); Monocytes Percent Auto 9.4 % (2-11); Neutrophils Absolute Auto 2.8 x10*3/uL (2.0-8.3); Neutrophils Percent Auto 54.2 % (45-73); Platelet Count 314 X10*3/uL (160-400); Red Blood Count 4.41 X10*6/uL (4.20-5.50); Red Cell Distribution Width 12.9 % (11.0-16.0); White Blood Count 5.1 X10*3/uL (4.8-10.8)
[2021-04-12 13:58] LABS: D Dimer High Sensitivity < 150 NG/ML
[2021-04-12 14:30] LABS: Alanine Aminotransferase 16 U/L (0-31); Albumin Level 4.3 g/dL (3.5-5.0); Alkaline Phosphatase 85 U/L (39-117); Anion Gap 9 (12-20); Aspartate Amino Transferase 17 U/L (5-31); Bilirubin Total 0.5 mg/dL (0.0-1.0); Blood Urea Nitrogen 13 mg/dL (9-16); Calcium 9.5 mg/dL (8.4-10.2); Carbon Dioxide 31 mmol/L (22-29); Chloride 105 mmol/L (96-108); Estimated Glomerular Filt Rate > 60; Glucose Random 99 mg/dL (60-115); Potassium 4.3 mmol/L (3.3-5.1); Sodium 141 mmol/L (135-145); Total Protein 6.9 g/dL (6.5-8.0)
== END 2021-04-12 12:55 | disposition home or self-care (01) ==
LOC: HO.LAB 12:54
PROVIDERS: PCP Nurse Practitioner Family; Visit Provider Internal Medicine Medical Oncology
DX: I26.99 Other pulmonary embolism without acute cor pulmonale (principal)
CPT/HCPCS: 36415; 80053; 85025; 85379

== ENCOUNTER 2021-04-14 10:02 | Outpatient (REF) | payer OTHER, SELFPAY ==
--- NOTE | ~2021-04-14 | CT_ITS ---
EXAMINATION: CT ANGIOGRAM OF THE CHEST WITH AND WITHOUT CONTRAST (CT PULMONARY ANGIOGRAM FOR PE) CLINICAL INFORMATION: Reason for Exam Follow-up on PE from [facility]. COMPARISON: Previous CTA October 2020 TECHNIQUE: Prior to contrast administration, noncontrast localization images were obtained. Subsequently, multidetector volumetric imaging was performed from the thoracic inlet to below the diaphragms following the administration of 65 mL Omnipaque 350 intravenous contrast. No contrast reaction reported Sagittal, coronal, and MIP oblique sagittal reformatted images were obtained on the CT workstation, uploaded to PACS, and reviewed. This CT examination was performed using dose optimization techniques as appropriate, variously including the following: *Automated exposure control *Adjustment of mA and/or kV according to patient size (this includes techniques or standardized protocols for targeted exams where dose is matched to indication/reason for exam; i.e. extremities or head) *Use of iterative reconstruction technique Total exam dose-length product 89 mGy-cm FINDINGS: QUALITY OF STUDY/CONTRAST BOLUS: Satisfactory. PULMONARY ARTERIES: No central or segmental pulmonary emboli. THORACIC AORTA: No aneurysm or dissection. LUNG: The lungs are clear. The previously identified peripheral infiltrates have completely resolved. PLEURA: No pleural effusion or pneumothorax. MEDIASTINUM: Normal heart size. No pericardial effusion. No hilar or mediastinal lymphadenopathy. No evidence of septal bowing or right heart strain. CHEST WALL/AXILLA: No axillary or internal mammary lymphadenopathy. Bilateral breast implants. OSSEOUS STRUCTURES: No acute or suspicious osseous abnormality. There are degenerative changes of the spine. UPPER ABDOMEN: There is question of mild narrowing of the proximal celiac axis and poststenotic dilatation. There is a calcification in the left upper quadrant that is stable. No reflux of contrast into the hepatic veins to suggest elevated right heart pressures. CT/CT angio chest PE protocol IMPRESSION: No evidence of pulmonary embolism. Resolved peripheral infiltrates from October 2020. VTE: negative
[2021-04-14] MEDS: iohexoL 350 MG/ML 100 ML INFUS..BTL IV (10:57)
== END 2021-04-14 10:03 | disposition home or self-care (01) ==
LOC: HO.CT 10:02
PROVIDERS: PCP Nurse Practitioner Family; Visit Provider Internal Medicine Medical Oncology
DX: I26.99 Other pulmonary embolism without acute cor pulmonale (principal)
CPT/HCPCS: 71275; Q9967

== ENCOUNTER 2022-01-12 10:43 | Outpatient (REF) | payer OTHER, SELFPAY ==
[2022-01-12 14:07] LABS: MANUAL DIFF FLAG NO
[2022-01-12 14:17] LABS: Basophils Percent Auto 0.6 % (0-2); Eosinophils Absolute Auto 0.1 X10*3/uL (0.0-0.4); Eosinophils Percent Auto 2.3 % (0-4); Hematocrit 38.9 % (37.0-47.0); Hemoglobin 12.5 g/dl (12.0-16.0); Imm Gran Abs Auto 0.01 X10*3/uL (0.00-0.03); Imm Gran Pct Auto 0.2 % (0.0-0.4); Lymphocytes Absolute Auto 1.7 X10*3/uL (1.2-4.9); Lymphocytes Percent Auto 33.7 % (20-40); Mean Corpuscular HGB Conc 32.1 g/dl (31.0-35.0); Mean Corpuscular Hemoglobin 28.9 pg (27.0-33.0); Mean Platelet Volume 10.1 fL (9.4-12.3); Monocytes Absolute Auto 0.6 X10*3/uL (0.1-1.2); Monocytes Percent Auto 11.2 % (2-11); Neutrophils Absolute Auto 2.7 x10*3/uL (2.0-8.3); Platelet Count 361 X10*3/uL (160-400); Red Blood Count 4.32 X10*6/uL (4.20-5.50); Red Cell Distribution Width 12.8 % (11.0-16.0); White Blood Count 5.1 X10*3/uL (4.8-10.8)
[2022-01-12 14:18] LABS: Appearance Urine Clear; Color Urine Yellow; Glucose Urine UA Negative (Negative); Leukocyte Esterase Urine Negative (Negative); Nitrite Urine Negative (Negative); Urine Blood Negative (Negative); Urine Ketones Negative (Negative); Urine Protein Negative (Neg-Trace)
[2022-01-12 14:49] LABS: Alanine Aminotransferase 22 U/L (0-31); Albumin Level 4.5 g/dL (3.5-5.0); Alkaline Phosphatase 78 U/L (39-117); Anion Gap 13 (12-20); Aspartate Amino Transferase 20 U/L (5-31); Blood Urea Nitrogen 12 mg/dL (9-16); Calcium 9.6 mg/dL (8.4-10.2); Carbon Dioxide 28 mmol/L (22-29); Chloride 103 mmol/L (96-108); Cholesterol 229 mg/dL; Estimated Glomerular Filt Rate > 60; Glucose Fasting 95 mg/dL (60-99); HDL Cholesterol 86 mg/dL; LDL Cholesterol Calculated 136 mg/dl; Potassium 4.2 mmol/L (3.3-5.1); Sodium 140 mmol/L (135-145); Total Protein 6.9 g/dL (6.5-8.0); Triglycerides 37 mg/dL
[2022-01-12 15:42] LABS: Bilirubin Total 0.3 mg/dL (0.0-1.0); TSH reflex Free T4 0.91 uIU/mL (0.32-4.0)
== END 2022-01-12 10:44 | disposition home or self-care (01) ==
LOC: HO.HMGCLDS 10:43
PROVIDERS: PCP Nurse Practitioner Family; Visit Provider Nurse Practitioner Family
DX: Z00.00 Encounter for general adult medical examination without abnormal findings (principal)
CPT/HCPCS: 36415; 80053; 80061; 81003; 84443; 85025

== ENCOUNTER 2022-08-08 11:44 | Outpatient (REF) | payer OTHER, SELFPAY ==
[2022-08-08 14:32] LABS: Cholesterol 206 mg/dL; HDL Cholesterol 81 mg/dL; LDL Cholesterol Calculated 119 mg/dl; Triglycerides 34 mg/dL
== END 2022-08-08 11:45 | disposition home or self-care (01) ==
LOC: HO.HMGCLDS 11:44
PROVIDERS: PCP Nurse Practitioner Family; Visit Provider Nurse Practitioner Family
DX: E78.5 Hyperlipidemia, unspecified (principal)
CPT/HCPCS: 36415; 80061

== ENCOUNTER 2023-04-19 09:06 | Outpatient (AMB) | payer OTHER, SELFPAY ==
--- NOTE | 2023-04-19 09:19 | A.OFFPC_ITS ---
Vital Signs 04/19/23 09:20 Height 5 ft 4 in Weight 149 lb 6 oz BMI 25.6 BP 123/60 Blood Pressure Location Lt brachial Position Sitting Respiration 12 Pulse 78 Pulse Source Pulse Oximeter Temp 98.1 F Temp Source Temporal Artery Scan Pulse Oximetry (%) 96 Oxygen Delivery Method Room Air Intake Visit Reasons: Jose from Susy Intake Note: Patient is here for transfer of care from Dr. Jain to Kelly Marx. Patient has no concerns at this time. Toll Collector Required: No Accompanied by: Self / Same As Patient Allergies acetaminophen [From Percocet] Allergy (Intermediate, Verified 04/19/23 10:20) Hives morphine [MORPHINE] Allergy (Intermediate, Verified 04/19/23 10:20) HIVES, vomiting oxycodone [OXYCODONE] Allergy (Intermediate, Verified 04/19/23 10:20) VOMITING benzonatate Allergy (Unknown, Verified 04/19/23 10:20) headaches meperidine [From Demerol] Allergy (Unknown, Verified 04/19/23 10:20) swelling NSAIDS (Non-Steroidal Anti-Inflamma Allergy (Unknown, Verified 04/19/23 10:20) swelling meloxicam Adverse Reaction (Unknown, Verified 04/19/23 10:20) ankle swelling paroxetine [Paxil] Adverse Reaction (Unknown, Verified 04/19/23 10:20) headaches Medication List - Last Reconciled 04/19/23 by Kelly Roger, FLOORWALKER-BC ascorbic acid (vitamin C) 1 g PO DAILY atorvastatin 20 mg PO BEDTIME biotin 5,000 mcg PO DAILY cholecalciferol (vitamin D3) 50 mcg PO DAILY duloxetine 60 mg PO DAILY gabapentin 200 mg (2 x 100 mg) PO BEDTIME 30 days ocrelizumab (Ocrevus) 600 mg IV [id number] vitamin B complex 1 tab PO DAILY Tobacco use date assessed: 04/19/23 Dental Screening Dental Screen Date: 04/19/23 Did you have a dental visit in the last 12 months?: Yes Did you have a dental problem in the last 6 months where you did not have access to dental care?: No Was dental information given to patient?: Patient has dentist HPI HPI Comments History of Present Illness Details 57-year-old female with hyperlipidemia, left knee medial meniscus tear, right de Quervains tenosynovitis, left ring trigger finger, chronic R meniscal tear, multiple sclerosis, COVID pneumonia with PE October of 2021, Stark's palsy, diverticulitis, IBS, renal stones neuropathy, menopause Status post adenoidectomy, breast augmentation, , shoulder surgery, tonsillectomy, umbilical hernia repair Health maintenance Colonoscopy 02/18/2023 [facility] * record needed Dr Bhatti Mammogram 01/28/2023 BI-RADS 2 benign DEXA years ago, ordered today. 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 MRI of brain scheduled in May 2023. Feels sx of MS mostly in lower ext. Meds she is on is currently managing her sx well. Working out. Working at [facility] [place] in [employer]. [facility] Medical History (Updated 04/19/23 @ 11:34 by Kelly Roger, FLOORWALKER-) Menopause Trigger finger of all digits of left hand De Quervain's tenosynovitis, right Generalized muscle ache Back pain Chest pain Pulmonary embolism Physical exam Multiple sclerosis Diverticulitis Complex ovarian cyst Stark's palsy Kidney stones Neuropathy IBS (irritable bowel syndrome) Dyslipidemia Myoma Spinal cord lesion Surgical History History of shoulder surgery History of umbilical hernia repair History of adenoidectomy History of tonsillectomy History of breast augmentation History of section Family History Father Heart disease CVD (cardiovascular disease) Mother HTN (hypertension) Maternal Grandfather No problems noted. Maternal Grandmother No problems noted. Paternal Grandfather No problems noted. Paternal Grandmother CVD (cardiovascular disease) Brother No problems noted. Brother No problems noted. Son No problems noted. Son Type 1 diabetes Social History (Updated 04/19/23 @ 09:31 by Sharda Del Rosario CMA) Household Members: Children Household Members Other:: 2 sons, 2 dogs Both parents involved: No Caregiver staying overnight: No Housing: House Are you a primary ocular care technician to a significant other at home: No Do you presently have visiting nurse or other home services: No 75 years or older and lives alone: No Alcohol intake: never Patient Tobacco Use Status: Never used Tobacco e-Cigarette/Vaping Use: Never Used Use of substances other than those prescribed or required for medical reasons: No Have you been hit, kicked, punched, or otherwise hurt by someone within the past year? If so, by whom?: No Do you feel safe in your current relationship?: No Current Relationship Is there a partner from a previous relationship who is making you feel unsafe now?: No Are you made to feel afraid or neglected: No service: No Current occupational status: employed Current occupation: [employer] Current occupational exposures/hazards: Yes Sexual orientation: Unable to collect Gender identity: Unable to collect Cognitive needs: No Hearing needs: No Vision needs: No Questionnaire PHQ-9 Over the last 2 weeks, how often have you been bothered by any of the following problems? 1. Little interest or pleasure in doing things: not at all 2. Feeling down, depressed, or hopeless: not at all 3. Trouble falling or staying asleep, or sleeping too much: not at all 4. Feeling tired or having little energy: not at all 5. Poor appetite or overeating: not at all 6. Feeling bad about yourself - or that you are a failure or have let yourself or your family down: not at all 7. Trouble concentrating on things, such as reading the newspaper or watching television: not at all 8. Moving or speaking so slowly that other people could have noticed. Or the opposite - being so fidgety or restless that you have been moving around a lot more than usual: not at all 9. Thoughts that you would be better off or of hurting yourself in some way: not at all Total score: 0 52415 - PHQ-9 Billing: Yes Source: Developed by Drs. Edson Grossman, Kim Solis, Woody Multani and colleagues, with an educational alan from [employer]. Thrive Questionnaire Date Thrive assessed: 04/19/23 I am a: Patient What is your living situation today?: I have a steady place to live Within the past 12 months, did the food you bought not last and you didn't have the money to get more?: Never true Within the past 12 months, did you worry whether your food would run out before you got money to buy more?: Never true Do you have trouble paying for medicines?: No Do you have trouble getting transportation to medical appointments?: No Do you have trouble paying your heating and electricity bill?: No Do you have trouble taking care of your child, family member or friend?: No Do you have trouble with day-to-day activities such as bathing, preparing meals, shopping, managing finances, etc.?: No Are you currently unemployed and looking for a job?: No Are you interested in more education?: No Please select the resources that you would like help with: None THRIVE Score: 0 AUDIT C Alcohol Use Questionnaire (AUDIT-C) 1. How often do you have a drink containing alcohol?: Never 3. How often do you have six or more drinks on one occasion?: Never Total Score: 0 Score Reviewed/Action Taken: Yes SIRIA-7 AMB Questionnaire SIRIA-7 Date SIRIA - 7 assessed: 04/19/23 Feeling nervous, anxious, or on edge: 0 = Not at all Not being able to stop or control worryin = Not at all Worrying too much about different things: 0 = Not at all Trouble relaxin = Not at all Being so restless that it is hard to sit still: 0 = Not at all Becoming easily annoyed or irritable: 0 = Not at all Feeling afraid as if something awful might happen: 0 = Not at all Total SIRIA-7 score (0-4 normal; 5-9 mild; 10-14 moderate; 15-21 severe): 0 Source: Developed by Drs. Edson Grossman, Kim Solis, Woody Multani and colleagues, with an educational alan from [employer]. SIRIA-7 Assessment Billing SIRIA-7 Assessment Tool: SIRIA-7 Assessment 20339 Review of Systems Const All systems reviewed & are unremarkable except as noted in HPI and below Physical exam (Primary Care) Vital Signs: Last Vital Signs Temp 98.1 F 04/19/23 09:20 Pulse 78 04/19/23 09:20 Resp 12 04/19/23 09:20 BP 123/60 04/19/23 09:20 Pulse Ox 96 04/19/23 09:20 Oxygen Delivery Method Room Air 04/19/23 09:20 BMI result Body Mass Index 25.6 Tobacco/Smoking Status: Tobacco use Status Tobacco use date assessed 04/19/23 04/19/23 09:32 Patient Tobacco Use Status Never used Tobacco 04/19/23 09:32 e-Cigarette/Vaping Use Never Used 04/19/23 09:32 PHQ-9: PHQ-9 Score PHQ-9: Total score 0 04/19/23 09:55 Thrive Assessment: Date of Thrive Assessment Date Thrive assessed 04/19/23 04/19/23 09:32 Const Other: AWAKE ALERT NAD MMM SPEAKING IN FULL SENTENCES LUTHER X 4 ENGAGING AND APPROPRIATE Assessment and Plan Assessment & Plan (1) Menopause: Comment: DEXA DUE, ORDERED TODAY. Code(s): Z78.0 - Asymptomatic menopausal state (2) Dyslipidemia: Comment: ON ATORVASTATIN 20MG QD. RECHECK LIPIDS BEFORE NEXT VISIT Code(s): E78.5 - Hyperlipidemia, unspecified (3) Pulmonary embolism: Comment: S/P COVID RIGHT LOWER LOBE SUBSEGMENTAL PULMONARY EMBOLISM, DESCRIBED ON CTA OF THE CHEST. WAS TREATED WITH ELIQUIS FOR 6 MONTHS. CONT. FOLLOW UP WITH DR MONTES DE [facility] Code(s): I26.99 - Other pulmonary embolism without acute cor pulmonale Qualifiers: Pulmonary embolism type: single subsegmental (without acute cor pulmonale) Qualified Code(s): I26.93 - Single subsegmental pulmonary embolism without acute cor pulmonale (4) Multiple sclerosis: Comment: MANAGED BY [facility] DR. SERA KABA Repeat MRI spine in November 2022. MRI of brain scheduled in May 2023. Feels sx of MS mostly in lower ext. Meds she is on is currently managing her sx well. Code(s): G35 - Multiple sclerosis Plan TOTAL TIME SPENT CARING FOR THE PATIENT TODAY WAS 45 MINUTES. THIS INCLUDES TIME SPENT BEFORE THE VISIT REVIEWING THE CHART, TIME SPENT DURING THE VISIT, AND TIME SPENT AFTER THE VISIT ON DOCUMENTATION THIS NOTE IS CONSTRUCTED USING VOICE RECOGNITION SOFTWARE. WHILE EVERY EFFORT HAS BEEN MADE TO ENSURE ACCURACY IN STITCHING MACHINE SETTER, STILL ERRORS MAY HAVE BEEN INCLUDED SOMETIMES, THESE ERRORS MAY AFFECT THE CONTENT OR MEANING OF THE GIVEN SENTENCE . Orders: Orders TSH reflex Free T4 07/15/23 E78.5 - Hyperlipidemia, unspecified, Z78.0 - Asymptomatic menopausal state XR DEXA axial skeleton Today Z78.0 - Asymptomatic menopausal state Comprehensive Hitchcock. Panel Fast 07/15/23 E78.5 - Hyperlipidemia, unspecified, Z78.0 - Asymptomatic menopausal state Lipid Panel 07/15/23 E78.5 - Hyperlipidemia, unspecified, Z78.0 - Asymptomatic menopausal state Microalbumin, Random (w Creat) 07/15/23 E78.5 - Hyperlipidemia, unspecified, Z78.0 - Asymptomatic menopausal state Coding Level of Care Code Est Pt Level 5 (67473) Diagnoses Menopause Z78.0 Dyslipidemia E78.5 Single subsegmental pulmonary embolism without acute cor pulmonale I26.93 Pulmonary embolism type: single subsegmental (without acute cor pulmonale) Multiple sclerosis G35 Additional Codes SIRIA-7 Assessment Billing - SIRIA-7 Assessment Tool: SIRIA-7 Assessment 81193 ([id number])
[2023-04-19 09:20] VITALS: BP 123/60; PULSE 78; RESP 12; TEMP 36.7; O2SAT 96; BMI 25.6
== END 2023-04-19 10:35 | disposition home or self-care (01) ==
PROVIDERS: PCP Nurse Practitioner Family; Visit Provider Nurse Practitioner Family
DX: E78.5 Hyperlipidemia, unspecified (principal); I26.93 Single subsegmental thrombotic pulmonary embolism without acute cor pulmonale; G35 Multiple sclerosis; Z78.0 Asymptomatic menopausal state
CPT/HCPCS: 99215

== ENCOUNTER 2023-05-01 11:37 | Outpatient (REF) | payer OTHER, SELFPAY ==
[2023-05-03 22:33] LABS: TS Negative Control Passed; TS Panel A 0; TS Panel B 0; TS Positive Control Passed; TSpotTB Negative (Negative)
== END 2023-05-01 11:38 | disposition home or self-care (01) ==
LOC: HO.LAB 11:37
PROVIDERS: PCP Nurse Practitioner Family; Visit Provider Nurse Practitioner Family
DX: Z11.1 Encounter for screening for respiratory tuberculosis (principal)
CPT/HCPCS: 36415; 86481

== ENCOUNTER 2023-05-03 13:56 | Outpatient (REF) | payer OTHER, SELFPAY ==
--- NOTE | ~2023-05-03 | MM_ITS ---
EXAMINATION: BONE DENSITOMETRY CLINICAL INDICATION: Asymptomatic menopausal state. COMPARISON: Baseline BD dated 02/19/2017. TECHNIQUE: Using a [employer] DXA System (software version: 13.1) manufactured by [employer], dual-energy x-ray absorptiometry was performed of the lumbar spine and left hip. The images are of good technical quality. Summary results are attached. FINDINGS: LEFT FEMUR, NECK: Current: BMD 0.901 g/cm2, Z-score 0.1, T-score -1.0, normal. Baseline: BMD 0.960 g/cm2. LEFT FEMUR, TOTAL: Current: BMD 0.925 g/cm2, Z-score 0.1, T-score -0.7, normal, 5.1% decrease from baseline (<5% change is not significant). Baseline: BMD 0.975 g/cm2. AP SPINE L1-L4: Current: BMD 1.235 g/cm2, Z-score 1.5, T-score 0.5, normal, 6.7% decrease from baseline (<5% change is not significant). Baseline: BMD 1.323 g/cm2. IDENTIFIED RISK FACTORS: Menopause. HISTORY OF FRACTURE: None listed. MEDICATIONS: Vitamin D. MM/XR DEXA axial skeleton IMPRESSION: 1. DIAGNOSIS: Normal bone density based on the lowest T-score value of -1.0 in the femoral neck applying World Health Organization criteria. 2. 10-YEAR FRACTURE RISK PREDICTION, FRAX: According to the guidelines, FRAX calculation should only be performed on patients in the osteopenia bone density category. Therefore, FRAX was not performed on this patient.? 3. Treatment Recommendations: NOF guidelines recommend consideration for treatment in postmenopausal women and men age 50 and older presenting with the following: -A hip or vertebral (clinical or morphometric) fracture. -T-score less than or equal to -2.5 at the femoral neck or spine after appropriate evaluation to exclude secondary causes. -Low bone mass at the hip or spine and a 10-year fracture probability by FRAX of greater than or equal to 3% for hip fracture or greater than or equal to 20% for major osteoporotic fracture based on the [place] adapted WHO algorithm. 4. Other Recommendations: All treatment decisions require clinical judgment and consideration of individual patient factors, including patient preferences, comorbidities, previous drug use, risk factors not captured in the FRAX model (e.g. frailty, falls, vitamin D deficiency, increased bone turnover, interval significant decline in bone density) and possible under or overestimation of fracture risk by FRAX. FUTURE SCAN RECOMMENDATION: People with diagnosed cases of osteoporosis or at high risk for fracture should have regular bone mineral density tests. For patients eligible for Medicare, routine testing is allowed once every 2 years. The testing frequency can be increased to one year for patients who have rapidly progressing disease, those who are receiving or discontinuing medical therapy to restore bone mass, or have additional risk factors.
== END 2023-05-03 13:57 | disposition home or self-care (01) ==
LOC: HO.MAMMO 13:56
PROVIDERS: PCP Nurse Practitioner Family; Visit Provider Nurse Practitioner Family
DX: Z13.820 Encounter for screening for osteoporosis (principal); Z78.0 Asymptomatic menopausal state
CPT/HCPCS: 77080

== ENCOUNTER 2023-08-28 10:51 | Outpatient (AMB) | payer OTHER, SELFPAY ==
--- NOTE | 2023-08-28 10:52 | A.OFFPC_ITS ---
Vital Signs 08/28/23 11:01 Height 5 ft 4 in Weight 147 lb BMI 25.2 BP 116/66 Blood Pressure Location Rt brachial Position Sitting Respiration 16 Pulse 81 Pulse Source Pulse Oximeter Temp 97.5 F Temp Source Temporal Artery Scan Pulse Oximetry (%) 98 Oxygen Delivery Method Room Air Intake Visit Reasons: Transfer care Intake Note: patient here for follow up. Buyer Required: No Is last menstrual period known: No Post menopausal: No Patient : No Allergies acetaminophen [From Percocet] Allergy (Intermediate, Verified 08/28/23 11:13) Hives morphine [MORPHINE] Allergy (Intermediate, Verified 08/28/23 11:13) HIVES, vomiting oxycodone [OXYCODONE] Allergy (Intermediate, Verified 08/28/23 11:13) VOMITING benzonatate Allergy (Unknown, Verified 08/28/23 11:13) headaches meperidine [From Demerol] Allergy (Unknown, Verified 08/28/23 11:13) swelling NSAIDS (Non-Steroidal Anti-Inflamma Allergy (Unknown, Verified 08/28/23 11:13) swelling meloxicam Adverse Reaction (Unknown, Verified 08/28/23 11:13) ankle swelling paroxetine [Paxil] Adverse Reaction (Unknown, Verified 08/28/23 11:13) headaches Medication List - Last Reconciled 08/28/23 by SHADI Vogel- ascorbic acid (vitamin C) 1 g PO DAILY atorvastatin 20 mg PO BEDTIME biotin 5,000 mcg PO DAILY cholecalciferol (vitamin D3) 50 mcg PO DAILY duloxetine 60 mg PO DAILY gabapentin 200 mg (2 x 100 mg) PO BEDTIME 90 days ocrelizumab (Ocrevus) 600 mg IV [id number] vitamin B complex 1 tab PO DAILY Tobacco use date assessed: 04/19/23 Dental Screening Dental Screen Date: 08/28/23 Did you have a dental visit in the last 12 months?: Yes Did you have a dental problem in the last 6 months where you did not have access to dental care?: No Was dental information given to patient?: Patient has dentist HPI HPI Comments History of Present Illness Details 58-year-old female with hyperlipidemia, left knee medial meniscus tear, right de Quervains tenosynovitis, left ring trigger finger, chronic R meniscal tear, multiple sclerosis, COVID pneumonia with PE October of 2021, Stark's palsy, diverticulitis, IBS, renal stones neuropathy, menopause Status post adenoidectomy, breast augmentation, , shoulder surgery, tonsillectomy, umbilical hernia repair 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 Repeat 10 year ... Mammogram 01/28/2023 BI-RADS 2 benign DEXA 05/03/2023 WNL Pap 10/2019, due for repeat with Dr Shakila Minap 05/2023 At [facility] Orthopedics Hematology carrot tier Pulmonology > cleared from further follow up Rheumatology Neuro Sera [facility] [employer] [facility] Here today for CPE Tolerant and compliant w/ all medications Has routine f/u with specialists Exercises daily. Repeat MRI 05/2023 reports stable, I do not have these results; Repeat imaging to be done Fall 2023 Vision - last eye exam unsure, wears glasses; will go to [facility] in [place] Dr Krueger (children go there). Skin: Has mole on face, right cheek, that was removed previously; it has regrown; Mood: Good; broke up with sig other recently General: Well developed, well nourished, in no acute distress. Appears stated age. Head: Normocephalic, atraumatic. Eyes: Pupils are equal, round and reactive to light and accommodation. Conjunctivae are clear. Vision grossly normal. Ears: TMs clear AU, EACS WNL Nose: Patent, without discharge. Mouth: There are no ulcers or lesions noted. No inflammation, no post nasal drip, no plaques nor exudates. Neck: Supple, no adenopathy or thyromegaly. Lungs: Clear to auscultation bilaterally. No rales, rhonchi or wheeze noted. Good air flow in all millan. Heart: Regular rate and rhythm. No murmurs, click, rubs or gallops are noted. Abdomen: Bowel sounds present in all quadrants. The abdomen is soft, nontender, with no masses or organomegaly noted. No hernias are noted. Musculoskeletal: Joints are nontender, without swelling, redness, or effusions. Range of motion is observed to be normal. Pulses: Peripheral pulses are equal and palpable bilaterally. Extremities: No clubbing, cyanosis nor edema is noted. Neurologic: Gait and station normal. Cranial Nerves 2-12 intact. Motor strength grossly symmetrical and intact. No sensory loss. Balance normal. Skin: No rashes, ulcers, or lesions noted. Turgor is good. Skin color is good. Hair and nails are without abnormalities. Psych: Normal eye contact, affect and mood appropriate, and normal interactions. Patient is alert and appropriate to context. Plan Labs today Schedule Pap Schedule eye exam Continue all medications Return to office in 6 months for routine follow up of lipids, sooner as needed. [facility] Medical History (Updated 08/28/23 @ 11:34 by SHADI Vogel-) Menopause Trigger finger of all digits of left hand De Quervain's tenosynovitis, right Generalized muscle ache Back pain Chest pain Pulmonary embolism Physical exam Multiple sclerosis Diverticulitis Complex ovarian cyst Stark's palsy Kidney stones Neuropathy IBS (irritable bowel syndrome) Dyslipidemia Myoma Spinal cord lesion Surgical History History of shoulder surgery History of umbilical hernia repair History of adenoidectomy History of tonsillectomy History of breast augmentation History of section Family History (Updated 08/28/23 @ 11:00 by Char Chapman) Father Heart disease CVD (cardiovascular disease) Mother HTN (hypertension) Maternal Grandfather No problems noted. Maternal Grandmother No problems noted. Paternal Grandfather No problems noted. Paternal Grandmother CVD (cardiovascular disease) Brother No problems noted. Brother No problems noted. Son No problems noted. Son Type 1 diabetes Social History (Updated 04/19/23 @ 09:31 by Sharda Del Rosario [facility]) Household Members: Children Household Members Other:: 2 sons, 2 dogs Both parents involved: No Caregiver staying overnight: No Housing: House Are you a primary doggy daycare activities director to a significant other at home: No Do you presently have visiting nurse or other home services: No 75 years or older and lives alone: No Alcohol intake: never Patient Tobacco Use Status: Never used Tobacco e-Cigarette/Vaping Use: Never Used service: No Current occupational status: employed Current occupation: [employer] Current occupational exposures/hazards: Yes Sexual orientation: Unable to collect Gender identity: Unable to collect Cognitive needs: No Hearing needs: No Vision needs: No Questionnaire Thrive Questionnaire Date Thrive assessed: 04/19/23 AUDIT C Alcohol Use Questionnaire (AUDIT-C) 1. How often do you have a drink containing alcohol?: Monthly or less 2. How many drinks containing alcohol do you have on a typical day when you are drinking?: 1 or 2 3. How often do you have six or more drinks on one occasion?: Never Total Score: 1 SIRIA-7 AMB Questionnaire SIRIA-7 Date SIRIA - 7 assessed: 04/19/23 Source: Developed by Drs. Edson Grossman, Kim Solis, Woody Multani and colleagues, with an educational alan from [employer]. Physical exam (Primary Care) Vital Signs: Last Vital Signs Temp 97.5 F 08/28/23 11:01 Pulse 81 08/28/23 11:01 Resp 16 08/28/23 11:01 BP 116/66 08/28/23 11:01 Pulse Ox 98 08/28/23 11:01 Oxygen Delivery Method Room Air 08/28/23 11:01 BMI result Body Mass Index 25.2 Tobacco/Smoking Status: Tobacco use Status Tobacco use date assessed 04/19/23 08/28/23 10:54 Patient Tobacco Use Status Never used Tobacco 08/28/23 10:54 e-Cigarette/Vaping Use Never Used 08/28/23 10:54 Thrive Assessment: Date of Thrive Assessment Date Thrive assessed 04/19/23 08/28/23 10:54 Assessment and Plan Assessment & Plan (1) Encounter for general adult medical examination without abnormal findings: Code(s): Z00.00 - Encounter for general adult medical examination without abnormal findings (2) Multiple sclerosis: Comment: MANAGED BY [facility] DR. SERA KABA Repeat MRI spine in November 2022. MRI of brain scheduled in May 2023. Feels sx of MS mostly in lower ext. Meds she is on is currently managing her sx well. Code(s): G35 - Multiple sclerosis (3) Menopause: Comment: DEXA DUE, ORDERED TODAY. Code(s): Z78.0 - Asymptomatic menopausal state (4) Dyslipidemia: Comment: ON ATORVASTATIN 20MG QD. RECHECK LIPIDS BEFORE NEXT VISIT Code(s): E78.5 - Hyperlipidemia, unspecified (5) Pulmonary embolism: Comment: S/P COVID RIGHT LOWER LOBE SUBSEGMENTAL PULMONARY EMBOLISM, DESCRIBED ON CTA OF THE CHEST. WAS TREATED WITH ELIQUIS FOR 6 MONTHS. CONT. FOLLOW UP WITH DR MONTES DE [facility] Code(s): I26.99 - Other pulmonary embolism without acute cor pulmonale Qualifiers: Pulmonary embolism type: single subsegmental (without acute cor pulmonale) Qualified Code(s): I26.93 - Single subsegmental pulmonary embolism without acute cor pulmonale Orders: Orders Lipid Panel 02/12/24 E78.5 - Hyperlipidemia, unspecified Comprehensive [place]. Panel Fast 02/12/24 E78.5 - Hyperlipidemia, unspecified Patient Instructions: Health screenings for women You should visit your health care provider from time to time, even if you are healthy. The purpose of these visits is to: Screen for medical issues Assess your risk for future medical problems Encourage a healthy lifestyle Update vaccinations and other preventive care services Help you get to know your provider in case of an illness Information Even if you feel fine, you should still see your provider for regular checkups. These visits can help you avoid problems in the future. For example, the only way to find out if you have high blood pressure is to have it checked regularly. High blood sugar and high cholesterol levels also may not have any symptoms in the early stages. A simple blood test can check for these conditions. There are specific times when you should see your provider or receive specific health screenings. The [place] Preventive Services Task Force publishes a list of recommended screenings. Below are screening guidelines for women ages 18 to 39. BLOOD PRESSURE SCREENING Your blood pressure should be checked at least once every 3 to 5 years if: Your blood pressure is in the normal range (top number less than 120 mm Hg and bottom number less than 80 mm Hg) You don't have risk factors for high blood pressure Ask your provider if you need your blood pressure checked more often if: The top number is 120 to 129 mm Hg or the bottom number is 70 to 79 mm Hg You have diabetes, heart disease, kidney problems, are overweight, or have certain other health conditions You have a first-degree relative with high blood pressure You are Black You had high blood pressure during a If the top number is 130 mm Hg or greater or the bottom number is 80 mm Hg or greater, this is considered stage 1 hypertension. Schedule an appointment with your provider to learn how you can reduce your blood pressure. Watch for blood pressure screenings in your area. Ask your provider if you can stop in to have your blood pressure checked. BREAST CANCER SCREENING Experts do not agree about the benefits of breast self-exams in finding breast cancer or saving lives. Talk to your provider about what is best for you. A screening mammogram is not recommended for most women under age 40. Your provider may discuss and recommend mammograms, MRI scans, or ultrasounds if you have an increased risk for breast cancer, such as: A mother or sister who had breast cancer at a young age (most often starting screening earlier than the age the close relative was diagnosed) You carry a high-risk genetic marker CERVICAL CANCER SCREENING Cervical cancer screening should start at age 21 years unless your provider advises otherwise. After the first test: Women ages 21 through 29 should have a Pap test every 3 years. Exoprts do not agree on whether HPV testing is recommended for this age group. Women ages 30 through 65 should be screened with either a Pap test every 3 years or the HPV test every 5 years or both tests every 5 years (called cotesting ). Women who have been treated for precancer (cervical dysplasia) should continue to have Pap tests for 20 years after treatment or until age 65, whichever is longer. If you have had your uterus and cervix removed (total hysterectomy), and you have not been diagnosed with cervical cancer or precancer (high grade cervical neoplasia), you do not need cervical cancer screening. CHOLESTEROL SCREENING Cholesterol screening should begin at: Age 45 for women with no known risk factors for coronary heart disease Age 20 for women with known risk factors for coronary heart disease Repeat cholesterol screening should take place: Every 5 years for women with normal cholesterol levels More often if changes occur in lifestyle (including weight gain and diet) More often if you have diabetes, heart disease, kidney problems, or certain other conditions DIABETES SCREENING You should be screened for diabetes starting at age 35 and then repeated every 3 years if you have no risk factors for diabetes. Screening may need to start earlier and be repeated more often if you have other risk factors for diabetes, such as: You have a first degree relative with diabetes. You are overweight or have obesity. You have high blood pressure, prediabetes, or a history of heart disease. Screening for diabetes should be done if you are planning to become and you are overweight and have other risk factors such as high blood pressure. DENTAL EXAM Go to the dentist once or twice every year for an exam and cleaning. Your dentist will evaluate if you need more frequent visits. EYE EXAM Have an eye exam every 5 to 10 years before age 40. If you have vision problems, have an eye exam every 2 years or more often if recommended by your provider. You should have an eye exam that includes an examination of your retina (back of your eye) at least every year if you have diabetes. IMMUNIZATIONS Commonly needed vaccines include: Flu shot: get one every year. COVID-19 vaccine: ask your provider what is best for you. Tetanus-diphtheria and acellular pertussis (Tdap) vaccine: have one at or after age 19 as one of your tetanus-diphtheria vaccines if you did not receive it as an adolescent. Tetanus-diphtheria: have a booster (or Tdap) every 10 years. Varicella vaccine: receive 2 doses if you never had chickenpox or the varicella vaccine. Hepatitis B vaccine: receive 2, 3, or 4 doses, depending on your exact circumstances. Measles, mumps, and rubella (MMR) vaccine: receive 1 to 2 doses if you are not already immune to MMR. Your provider can tell you if you are immune. Ask your provider about the human papillomavirus (HPV) vaccine if: You have not received the HPV vaccine in the past You have not completed the full vaccine series (you should catch up on this shot) Ask your provider if you should receive other immunizations if you have certain health problems that increase your risk for some diseases such as pneumonia. INFECTIOUS DISEASE SCREENING Women who are sexually active should be screened for chlamydia and gonorrhea up until age 25. Women 25 years and older should be screened for chlamydia and gonorrhea if at high risk. Screening for hepatitis C: All adults ages 18 to 79 should get a one-time test for hepatitis C. people should be screened at every . Screening for human immunodeficiency virus (HIV): All people ages 15 to 65 should get a one-time test for HIV. Depending on your lifestyle and medical history, you may also need to be screened for infections such as syphilis and HIV, as well as other infections. PHYSICAL EXAM All adults should visit their provider from time to time, even if they are healthy. The purpose of these visits is to: Screen for disease Assess your risk of future medical problems Encourage a healthy lifestyle Update your vaccinations and other preventive care services Maintain a relationship with a provider in case of an illness Your height, weight, and BMI should be checked at every exam. During your exam, your provider may ask you about: Depression and anxiety Diet and exercise Alcohol and tobacco use Safety issues, such as using seat belts, smoke detectors, and intimate partner violence Your medicines and risk for interactions SKIN SELF-EXAM Your provider may check your skin for signs of skin cancer, especially if you're at high risk, such as if you: Have had skin cancer before Have close relatives with skin cancer Have a weakened immune system OTHER SCREENING Talk with your provider about colon cancer screening if you have a strong family history of colon cancer or polyps, or if you have had inflammatory bowel disease or polyps yourself. Routine bone density screening of women under 40 is not recommended. Coding Level of Care Code Est Pt Prev Care 40-64y(54850) Diagnoses Encounter for general adult medical examination without abnormal findings Z00.00 Multiple sclerosis G35 Menopause Z78.0 Dyslipidemia E78.5 Single subsegmental pulmonary embolism without acute cor pulmonale I26.93 Pulmonary embolism type: single subsegmental (without acute cor pulmonale)
[2023-08-28 11:01] VITALS: BP 116/66; PULSE 81; RESP 16; TEMP 36.4; O2SAT 98; BMI 25.2
== END 2023-08-28 11:49 | disposition home or self-care (01) ==
PROVIDERS: PCP Nurse Practitioner Family; Visit Provider Nurse Practitioner Family
DX: Z00.00 Encounter for general adult medical examination without abnormal findings (principal); G35 Multiple sclerosis; Z78.0 Asymptomatic menopausal state; E78.5 Hyperlipidemia, unspecified; I26.93 Single subsegmental thrombotic pulmonary embolism without acute cor pulmonale
CPT/HCPCS: 99396

== ENCOUNTER 2024-03-02 09:25 | Outpatient (AMB) | payer BC, SELFPAY ==
--- NOTE | 2024-03-02 09:30 | MHC.PC.OV ---
Vital Signs 03/02/24 09:33 Height 5 ft 4 in Weight 143 lb BMI 24.5 BP 122/72 Blood Pressure Location Lt brachial Position Sitting Respiration 13 Pulse 74 Pulse Source Pulse Oximeter Pulse Oximetry (%) 99 Oxygen Delivery Method Room Air Intake Visit Reasons: routine fu Lipids Intake Note: routine follow up Property Investor Required: No Allergies acetaminophen [From Percocet] Allergy (Intermediate, Verified 03/02/24 09:49) Hives morphine [MORPHINE] Allergy (Intermediate, Verified 03/02/24 09:49) HIVES, vomiting oxycodone [OXYCODONE] Allergy (Intermediate, Verified 03/02/24 09:49) VOMITING benzonatate Allergy (Unknown, Verified 03/02/24 09:49) headaches meperidine [From Demerol] Allergy (Unknown, Verified 03/02/24 09:49) swelling NSAIDS (Non-Steroidal Anti-Inflamma Allergy (Unknown, Verified 03/02/24 09:49) swelling meloxicam Adverse Reaction (Unknown, Verified 03/02/24 09:49) ankle swelling paroxetine [Paxil] Adverse Reaction (Unknown, Verified 03/02/24 09:49) headaches Medication List - Last Reconciled 03/02/24 by Kelly Roger, BOAT OPERATOR- ascorbic acid (vitamin C) 1 g PO DAILY atorvastatin 20 mg PO BEDTIME biotin 5,000 mcg PO DAILY cetirizine (Zyrtec) 10 mg PO DAILY PRN cholecalciferol (vitamin D3) 50 mcg PO DAILY duloxetine 60 mg PO DAILY fluocinonide 0.05% 1 appl topical BID-QID PRN gabapentin 200 mg (2 x 100 mg) PO BEDTIME 90 days ocrelizumab (Ocrevus) 600 mg IV [id number] vitamin B complex 1 tab PO DAILY Tobacco use date assessed: 04/19/23 Dental Screening Dental Screen Date: 08/28/23 HPI HPI Comments History of Present Illness Details 58-year-old female with hyperlipidemia, left knee medial meniscus tear, right de Quervains tenosynovitis, left ring trigger finger, chronic R meniscal tear, multiple sclerosis, COVID pneumonia with PE October of 2021, Stark's palsy, diverticulitis, IBS, renal stones neuropathy, menopause Status post adenoidectomy, breast augmentation, , shoulder surgery, tonsillectomy, umbilical hernia repair Social: [employer] @ [facility]; recent break up w/ boyfriend of 4 years, Demetrio; has new boyfriend he lives in [place] Family: 2 sons Health maintenance: Colonoscopy 02/18/2023 [facility] * record needed Dr Bhatti ? Repeat 10 year ... 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 The condition has been managed with atorvastatin, and previous lab results showed improved cholesterol levels following a dosage adjustment from 10 mg to 20 mg. The patient reports good medication adherence with no recent fluctuations in lipid values anticipated. The patient's chronic condition of MS is under control, with the next infusion scheduled for the of this month. She has not experienced any breakthrough symptoms, attributing this stability to her regular medication regimen, which includes duloxetine and gabapentin. The patient mentions increased stress levels in January, correlating with a viral illness that lasted four days. Symptoms such as malaise and dizziness resolved without significant intervention. Additionally, the patient reports a history of depression linked to personal relationship stresses but describes a recent emotional and psychological improvement. She has sought closure with a previous partner and initiated a new relationship, contributing positively to her mental health. The patient's family history includes a son with type 1 diabetes, who struggles with diabetes management, reflected in consistently high A1c levels around nine. eczema flare w/ stress. saw derm 01/2024 who rx'd topical steroid. 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 - Living Situation: Lives with children and has initiated a new supportive relationship. - Family Dynamics: She has two sons; one is in school, dealing with stressors regarding child support and education. - Mental Health Support: Manages stress through personal reflection and support from new partner. Physical Exam General: Awake, alert. No apparent distress Eyes: Sclera and conjunctiva clear bilaterally Cardiovascular: Regular rate and rhythm Respiratory: Clear to auscultation bilaterally Mood and affect appropriate Plan - Continue atorvastatin management for hyperlipidemia and await post-visit laboratory results to confirm lipid levels. - Stress management will be monitored, with consideration of episodic counseling support if needed. - Monitor MS symptoms and continue with scheduled infusions. - cont topical steroid for eczema; ensure to only take one as i sent in one per your request prior to derm sending one. Patient was informed and verbally consented to the use of an ambient scribe for clinic note documentation during this visit. Discussion Notes I discussed the importance of continued compliance with atorvastatin for managing hyperlipidemia. The patient is advised to complete her overdue lab work to assess her current lipid profile. Given her recent viral illness and the emotional stress from family dynamics, I highlighted the benefits of utilizing stress management or counseling support, especially episodically for more difficult patient care cases which resonate with her emotional concerns. We reviewed potential MS exacerbations, noting her current asymptomatic state is favorable. The patient acknowledged and outlined her consistent medication intake. I commended her steps towards emotional wellness and establishing personal boundaries with ex-partners, which may benefit her mental health. The management of her son?s diabetes remains a concern, with a recommendation to explore counseling services that could assist him in coping with his health challenges. Patient Instructions - Visit the lab after this appointment to have your cholesterol checked. - Continue taking atorvastatin and all other prescribed medications as directed. - Practice stress management techniques and consider episodic counseling to process work-related emotional burdens. - Discuss the importance of diabetes management with your son and encourage him towards behavioral health support. - Monitor for any new symptoms related to your MS and report immediately if they occur. -- cont topical steroid for eczema; ensure to only take one as i sent in one per your request prior to derm sending one. RTO 6 months for CPE, sooner PRN This note is constructed using voice recognition software. While every effort has been made to ensure accuracy in health data administrator, still errors may have been included Sometimes, these errors may affect the content or meaning of the given sentence . Total time spent caring for the patient today was 60 minutes. This includes time spent before the visit reviewing the chart, time spent during the visit, and time spent after the visit on documentation, reviewing laboratory results, diagnostic imaging, medications, performing a medically necessary evaluation, counseling on diagnoses, care coordination, ordering appropriate tests, ordering appropriate medications, review of tests performed by other providers, reporting test results with the patient, communication with other healthcare providers. PFSH Medical History (Updated 03/02/24 @ 11:27 by Kelly Roger, BOAT OPERATOR-) Menopause Trigger finger of all digits of left hand De Quervain's tenosynovitis, right Generalized muscle ache Back pain Chest pain Pulmonary embolism Physical exam Multiple sclerosis Diverticulitis Complex ovarian cyst Strak's palsy Kidney stones Neuropathy IBS (irritable bowel syndrome) Dyslipidemia Myoma Spinal cord lesion Surgical History History of shoulder surgery History of umbilical hernia repair History of adenoidectomy History of tonsillectomy History of breast augmentation History of section Family History (Updated 08/28/23 @ 11:00 by Char Chapman MA) Father Heart disease CVD (cardiovascular disease) Mother HTN (hypertension) Maternal Grandfather No problems noted. Maternal Grandmother No problems noted. Paternal Grandfather No problems noted. Paternal Grandmother CVD (cardiovascular disease) Brother No problems noted. Brother No problems noted. Son No problems noted. Son Type 1 diabetes Social History (Updated 04/19/23 @ 09:31 by Sharda Del Rosario [facility]) Household Members: Children Household Members Other:: 2 sons, 2 dogs Both parents involved: No Caregiver staying overnight: No Housing: House Are you a primary adult daycare coordinator to a significant other at home: No Do you presently have visiting nurse or other home services: No 75 years or older and lives alone: No Alcohol intake: never Patient Tobacco Use Status: Never used Tobacco e-Cigarette/Vaping Use: Never Used service: No Current occupational status: employed Current occupation: [facility] [employer] Current occupational exposures/hazards: Yes Sexual orientation: Unable to collect Gender identity: Unable to collect Cognitive needs: No Hearing needs: No Vision needs: No Questionnaire PHQ-9 Over the last 2 weeks, how often have you been bothered by any of the following problems? 1. Little interest or pleasure in doing things: not at all 2. Feeling down, depressed, or hopeless: not at all 3. Trouble falling or staying asleep, or sleeping too much: not at all 4. Feeling tired or having little energy: not at all 5. Poor appetite or overeating: not at all 6. Feeling bad about yourself - or that you are a failure or have let yourself or your family down: not at all 7. Trouble concentrating on things, such as reading the newspaper or watching television: not at all 8. Moving or speaking so slowly that other people could have noticed. Or the opposite - being so fidgety or restless that you have been moving around a lot more than usual: not at all 9. Thoughts that you would be better off or of hurting yourself in some way: not at all Total score: 0 Depression Screening Interpretation: Negative Depression Screening Done: Yes 89172 - PHQ-9 Billing: Yes Source: Developed by Drs. Edson Grossman, Kim Solis, Woody Multani and colleagues, with an educational alan from [employer]. Thrive Questionnaire Date Thrive assessed: 03/02/24 I am a: Patient What is your living situation today?: I have a steady place to live Within the past 12 months, did the food you bought not last and you didn't have the money to get more?: Never true Within the past 12 months, did you worry whether your food would run out before you got money to buy more?: Never true Do you have trouble paying for medicines?: No Do you have trouble getting transportation to medical appointments?: No Do you have trouble paying your heating and electricity bill?: No Do you have trouble taking care of your child, family member or friend?: No Do you have trouble with day-to-day activities such as bathing, preparing meals, shopping, managing finances, etc.?: No Are you currently unemployed and looking for a job?: No Are you interested in more education?: Yes Please select the resources that you would like help with: None Currently or been in a relationship where the following occur: No concerns reported THRIVE Score: 0 AUDIT C Alcohol Use Questionnaire (AUDIT-C) 1. How often do you have a drink containing alcohol?: Monthly or less 2. How many drinks containing alcohol do you have on a typical day when you are drinking?: 1 or 2 3. How often do you have six or more drinks on one occasion?: Never Total Score: 1 Score Reviewed/Action Taken: Yes SIRIA-7 AMB Questionnaire SIRIA-7 Date SIRIA - 7 assessed: 03/02/24 Feeling nervous, anxious, or on edge: 0 = Not at all Not being able to stop or control worryin = Not at all Worrying too much about different things: 0 = Not at all Trouble relaxin = Not at all Being so restless that it is hard to sit still: 0 = Not at all Becoming easily annoyed or irritable: 1 = Several days Feeling afraid as if something awful might happen: 0 = Not at all Total SIRIA-7 score (0-4 normal; 5-9 mild; 10-14 moderate; 15-21 severe): 1 Source: Developed by Drs. Edson Grossman, Kim Solis, Woody Multani and colleagues, with an educational alan from [employer]. SIRIA-7 Assessment Billing SIRIA-7 Assessment Tool: SIRIA-7 Assessment 70566 Physical exam (Primary Care) Vital Signs: Last Vital Signs Pulse 74 03/02/24 09:33 Resp 13 03/02/24 09:33 BP 122/72 03/02/24 09:33 Pulse Ox 99 03/02/24 09:33 Oxygen Delivery Method Room Air 03/02/24 09:33 BMI result Body Mass Index 24.5 Tobacco/Smoking Status: Tobacco use Status Tobacco use date assessed 04/19/23 03/02/24 09:35 Patient Tobacco Use Status Never used Tobacco 03/02/24 09:35 e-Cigarette/Vaping Use Never Used 03/02/24 09:35 PHQ-9: PHQ-9 Score PHQ-9: Total score 0 03/02/24 10:12 Depression Screening Interpretation: Negative Thrive Assessment: Date of Thrive Assessment Date Thrive assessed 03/02/24 03/02/24 09:35 Currently or been in a relationship where the following occur: No concerns reported Coding Level of Care Code Est Pt Level 5 (00568) Complex EM visit Add On G2211 Diagnoses Dyslipidemia E78.5 Multiple sclerosis G35 Eczema, unspecified type L30.9 Eczema type: unspecified Stress F43.9 Additional Codes SIRIA-7 Assessment Billing - SIRIA-7 Assessment Tool: SIRIA-7 Assessment 61676 ([id number]) PHQ-9 - 78636 - PHQ-9 Billing: Yes ([id number]) Assessment & Plan Assessment & Plan (1) Dyslipidemia: Comment: ON ATORVASTATIN 20MG QD. RECHECK LIPIDS BEFORE NEXT VISIT Code(s): E78.5 - Hyperlipidemia, unspecified Category: Medical (2) Multiple sclerosis: Comment: MANAGED BY [facility] DR. SERA KABA Repeat MRI spine in November 2022. MRI of brain scheduled in May 2023. Feels sx of MS mostly in lower ext. Meds she is on is currently managing her sx well. Code(s): G35 - Multiple sclerosis Category: Medical (3) Eczema: Code(s): L30.9 - Dermatitis, unspecified Category: Medical Qualifiers: Eczema type: unspecified Qualified Code(s): L30.9 - Dermatitis, unspecified (4) Stress: Code(s): F43.9 - Reaction to severe stress, unspecified Category: Medical Plan . Medications: New fluocinonide 0.05% 1 appl topical BID-QID PRN 120 grams 2RF rash
[2024-03-02 09:33] VITALS: BP 122/72; PULSE 74; RESP 13; O2SAT 99; BMI 24.5
--- OUTSIDE RECORDS SUMMARY | 2024-03-02 09:41 | XMS_ITS | Continuity of Care Document ---
Author Organization [facility] Address [address] [place] [address] Dr [address] [place] [address] Phone Care Team Providers Care Stripper [place] Name Role Phone David DILLON FACS T [...] E&M Established 15 Mins [facility], [address] [place] [address] [address], [place], [id number], tel:[phone] CVCharline [facility] Spider Veins - (Telangiect thu) 3 David DILLON FACS T KYA Felder. [address] [address], [place], [address], [place]. tel:[phone] Referring Provider: Jhony Hernandez MD, FACS, RVT [facility], [address] [address], [place], [address]. tel:[phone] [facility], [address] [place] [address] [address]Jodie [place], [id number], tel:[phone] MA [facility] Spider Veins - (Telangiect thu) 3 Mollcarmelina Steinberg . [address] [facility], [address], [facility] [place], [id number] , [place]. tel:[phone] Referring Provider: Jhony Hernandez MD FACS RVT [facility], [address] [facility] [address], [facility] [place], [address]. tel:[phone] Family History Family Member Type Diagnosis Age [...]
== END 2024-03-02 10:32 | disposition home or self-care (01) ==
PROVIDERS: PCP Nurse Practitioner Family; Visit Provider Nurse Practitioner Family
DX: E78.5 Hyperlipidemia, unspecified (principal); G35 Multiple sclerosis; L30.9 Dermatitis, unspecified; F43.9 Reaction to severe stress, unspecified

== ENCOUNTER → 2024-03-02 09:25 | Outpatient (BNVA) | payer BC, SELFPAY | PROVIDERS: PCP Nurse Practitioner Family; Visit Provider Nurse Practitioner Family ==

== ENCOUNTER 2024-03-02 10:25 | Outpatient (REF) | payer BC, SELFPAY ==
--- OUTSIDE RECORDS SUMMARY | 2024-03-02 10:53 | XMS_ITS | Continuity of Care Document ---
Author Organization [facility] Address [address] [place] [address] Dr [address] [place] [phone] Phone Care Team Providers Care Slackman Name Role Phone David DILLON FACS T [...] E&M Established 15 Mins [facility], [address] [place] [address] [address], [place], [id number], tel:[phone] CVCharline [facility] Spider Veins - (Telangiect thu) 3 David DILLON FACS T KYA Felder. [address] [address], [place], [address], [place]. tel:[phone] Referring Provider: Jhony Hernandez MD, FACS, RVT [facility], [address] [address], [place], [address]. tel:[phone] [facility], [address] [place] [address] [address]Jodie [place], [id number], tel:[phone] CVCharline Durham MA [facility] Spider Veins - (Telangiect thu) 3 Mollcarmelina Steinberg . [address] [facility], [address], [facility] [place], [id number] , [place]. tel:[phone] Referring Provider: Jhony Hernandez MD FACS RVT [facility], [address] [facility] [address], [facility] [place], [address]. tel:[phone] Family History Family Member Type Diagnosis Age At Onset No Information Payers Payer name Insurance type Covered alliance party ID Authoriza tion(s) Self Pay 09 [...]
[2024-03-02 14:06] LABS: Alanine Aminotransferase 21 U/L (0-31); Albumin Level 4.4 g/dL (3.5-5.0); Alkaline Phosphatase 88 U/L (39-117); Anion Gap 12 (12-20); Aspartate Amino Transferase 22 U/L (5-31); Bilirubin Total 0.3 mg/dL (0.0-1.0); Blood Urea Nitrogen 16 mg/dL (9-16); Calcium 9.3 mg/dL (8.4-10.2); Carbon Dioxide 28 mmol/L (22-29); Chloride 107 mmol/L (96-108); Cholesterol 188 mg/dL (<200); Estimated Glomerular Filt Rate > 60; Glucose Fasting 106 mg/dL (60-99); HDL Cholesterol 83 mg/dL (>40); LDL Cholesterol Calculated 97 mg/dL (<100); Sodium 143 mmol/L (135-145); Total Protein 7.2 g/dL (6.5-8.0); Triglycerides 40 mg/dL (<150)
[2024-03-02 14:21] LABS: Creatinine Urine 129.68 mg/dL; Microalbum/Creatinine Ratio Ur 6.9 ug/mg cr (<30)
[2024-03-02 14:24] LABS: TSH reflex Free T4 0.88 uIU/mL (0.32-4.0)
== END 2024-03-02 10:26 | disposition home or self-care (01) ==
LOC: HO.WFDLDS 10:25
PROVIDERS: Visit Provider Nurse Practitioner Family
DX: E78.5 Hyperlipidemia, unspecified (principal); G35 Multiple sclerosis; L30.9 Dermatitis, unspecified; F43.9 Reaction to severe stress, unspecified; Z78.0 Asymptomatic menopausal state; Z79.899 Other long term (current) drug therapy
CPT/HCPCS: 36415; 80053; 80061; 82043; 82570; 84443; 96127

== ENCOUNTER 2024-04-07 09:49 | Outpatient (AMB) | payer BC, SELFPAY ==
--- NOTE | 2024-04-07 09:53 | MHC.PC.OV ---
Vital Signs 04/07/24 09:57 Height 5 ft 4 in Weight 145 lb 8 oz BMI 25.0 BP 118/68 Blood Pressure Location Rt brachial Position Sitting Respiration 12 Pulse 72 Pulse Source Pulse Oximeter Temp 97.1 F Temp Source Oral Pulse Oximetry (%) 97 Oxygen Delivery Method Room Air Intake Visit Reasons: anxiety and panic attacks Intake Note: follow up on anxiety Internet Marketing Coordinator Required: No Allergies acetaminophen [From Percocet] Allergy (Intermediate, Verified 04/07/24 10:12) Hives morphine [MORPHINE] Allergy (Intermediate, Verified 04/07/24 10:12) HIVES, vomiting oxycodone [OXYCODONE] Allergy (Intermediate, Verified 04/07/24 10:12) VOMITING benzonatate Allergy (Unknown, Verified 04/07/24 10:12) headaches meperidine [From Demerol] Allergy (Unknown, Verified 04/07/24 10:12) swelling NSAIDS (Non-Steroidal Anti-Inflamma Allergy (Unknown, Verified 04/07/24 10:12) swelling meloxicam Adverse Reaction (Unknown, Verified 04/07/24 10:12) ankle swelling paroxetine [Paxil] Adverse Reaction (Unknown, Verified 04/07/24 10:12) headaches Medication List - Last Reconciled 04/07/24 by Kelly Roger, INSPECTOR PACKAGER- ascorbic acid (vitamin C) 1 g PO DAILY atorvastatin 20 mg PO BEDTIME biotin 5,000 mcg PO DAILY cetirizine (Zyrtec) 10 mg PO DAILY PRN cholecalciferol (vitamin D3) 50 mcg PO DAILY duloxetine 60 mg PO DAILY fluocinonide 0.05% 1 appl topical BID-QID PRN gabapentin 200 mg (2 x 100 mg) PO BEDTIME 90 days ocrelizumab (Ocrevus) 600 mg IV [id number] vitamin B complex 1 tab PO DAILY Tobacco use date assessed: 04/07/24 Dental Screening Dental Screen Date: 04/07/24 Did you have a dental visit in the last 12 months?: Yes Did you have a dental problem in the last 6 months where you did not have access to dental care?: No Was dental information given to patient?: Patient has dentist HPI HPI Comments History of Present Illness Details - The patient is a 58-year-old female presenting with anxiety and panic disorder. - Her episodes of anxiety and panic have intensified following the of her friend's brother on March 10. - She is undergoing considerable stress related to legal issues with Carlos Alberto over child support, significantly affecting her emotional well-being. - Her son?s diabetes management is also a source of anxiety, with his A1c recorded at 9.4, indicating suboptimal control. - Challenges with insurance approvals and pharmacy transition for her son's diabetes medications have been stressors. - Work has been stressful despite a supportive team, contributing to episodes of hyperventilation and crying. - Her boyfriend is a sullivan supportive figure, providing emotional stability through her challenges. Physical Exam General: Well developed, well nourished, in no acute distress. Appears stated age. Psych: Mood and affect appropriate, though patient reports experiencing anxiety and panic attacks. Discussion Notes I discussed the patient's ongoing anxiety and panic disorder in the context of recent life stressors, including the of a close friend's brother and legal issues concerning child support with Carlos Alberto. I emphasized the importance of pursuing therapy to establish additional support systems beyond her current medication regimen. We reviewed the introduction of hydroxyzine for acute management of anxiety episodes. I encouraged the patient to maintain open communication with her support network and to utilize work-based support when needed. I also highlighted the significance of managing her son?s diabetes as a family, ensuring consistency with medication adherence and regular follow-up appointments. Monitoring and follow-up in two to four weeks were recommended to reassess symptoms and treatment efficacy. Assessment and Plan 1. Anxiety Disorder: The patient?s current anxiety exacerbation requires the continuation of duloxetine and the addition of hydroxyzine as needed for acute episodes. Therapy is advised for ongoing support and stress management. 2. Panic Disorder: Episodes will be managed with as-needed hydroxyzine, with therapy advised to address root causes and symptom triggers. 3. Stress related to son's diabetes: This ongoing stressor necessitates close monitoring and adjustment of the son?s diabetes care in coordination with other healthcare providers. Patient Instructions - Continue current medication of duloxetine as prescribed. - Utilize hydroxyzine as needed for acute anxiety or panic episodes. - Seek therapy or counseling for additional support. - Communicate regularly with your supportive network, including family, friends, and workplace contacts. - Follow-up with son's diabetes care team to ensure management is on track. Consent Patient was informed and verbally consented to the use of an ambient scribe for clinic note documentation during this visit. Total time spent caring for the patient today was 70 minutes. This includes time spent before the visit reviewing the chart, time spent during the visit, and time spent after the visit on documentation, reviewing laboratory results, diagnostic imaging, medications, performing a medically necessary evaluation, counseling on diagnoses, care coordination, ordering appropriate tests, ordering appropriate medications, review of tests performed by other providers, reporting test results with the patient, communication with other healthcare providers. [facility] Medical History (Updated 04/07/24 @ 10:25 by Kelly Roger, [facility]) Back pain Stark's palsy Chest pain Complex ovarian cyst De Quervain's tenosynovitis, right Diverticulitis Dyslipidemia Generalized muscle ache IBS (irritable bowel syndrome) Kidney stones Menopause Multiple sclerosis Myoma Neuropathy Physical exam Pulmonary embolism Spinal cord lesion Trigger finger of all digits of left hand Surgical History History of adenoidectomy History of breast augmentation History of section History of shoulder surgery History of tonsillectomy History of umbilical hernia repair Family History (Updated 08/28/23 @ 11:00 by Char Chapman MA) Father Heart disease CVD (cardiovascular disease) Mother HTN (hypertension) Maternal Grandfather No problems noted. Maternal Grandmother No problems noted. Paternal Grandfather No problems noted. Paternal Grandmother CVD (cardiovascular disease) Brother No problems noted. Brother No problems noted. Son No problems noted. Son Type 1 diabetes Social History (Updated 04/19/23 @ 09:31 by Sharda Del Rosario [facility]) Household Members: Children Household Members Other:: 2 sons, 2 dogs Both parents involved: No Caregiver staying overnight: No Housing: House Are you a primary healthcare liaison to a significant other at home: No Do you presently have visiting nurse or other home services: No 75 years or older and lives alone: No Alcohol intake: never Patient Tobacco Use Status: Never used Tobacco e-Cigarette/Vaping Use: Never Used service: No Current occupational status: employed Current occupation: [employer] Current occupational exposures/hazards: Yes Sexual orientation: Unable to collect Gender identity: Unable to collect Cognitive needs: No Hearing needs: No Vision needs: No Questionnaire PHQ-9 Over the last 2 weeks, how often have you been bothered by any of the following problems? 1. Little interest or pleasure in doing things: not at all 2. Feeling down, depressed, or hopeless: not at all 3. Trouble falling or staying asleep, or sleeping too much: not at all 4. Feeling tired or having little energy: not at all 5. Poor appetite or overeating: not at all 6. Feeling bad about yourself - or that you are a failure or have let yourself or your family down: not at all 7. Trouble concentrating on things, such as reading the newspaper or watching television: not at all 8. Moving or speaking so slowly that other people could have noticed. Or the opposite - being so fidgety or restless that you have been moving around a lot more than usual: not at all 9. Thoughts that you would be better off or of hurting yourself in some way: not at all Total score: 0 21551 - PHQ-9 Billing: Yes Source: Developed by Drs. Edson Grossman, Kim Solis, Woody Multani and colleagues, with an educational alan from [employer]. Thrive Questionnaire Date Thrive assessed: 04/07/24 I am a: Patient What is your living situation today?: I have a steady place to live Within the past 12 months, did the food you bought not last and you didn't have the money to get more?: Never true Within the past 12 months, did you worry whether your food would run out before you got money to buy more?: Never true Do you have trouble paying for medicines?: No Do you have trouble getting transportation to medical appointments?: No Do you have trouble paying your heating and electricity bill?: No Do you have trouble taking care of your child, family member or friend?: No Do you have trouble with day-to-day activities such as bathing, preparing meals, shopping, managing finances, etc.?: No Are you currently unemployed and looking for a job?: No Are you interested in more education?: Yes Please select the resources that you would like help with: None Currently or been in a relationship where the following occur: No concerns reported THRIVE Score: 0 SIRIA-7 AMB Questionnaire SIRIA-7 Date SIRIA - 7 assessed: 04/07/24 Feeling nervous, anxious, or on edge: 1 = Several days Not being able to stop or control worryin = Several days Worrying too much about different things: 1 = Several days Trouble relaxin = Several days Being so restless that it is hard to sit still: 0 = Not at all Becoming easily annoyed or irritable: 1 = Several days Feeling afraid as if something awful might happen: 1 = Several days Total SIRIA-7 score (0-4 normal; 5-9 mild; 10-14 moderate; 15-21 severe): 6 Source: Developed by Drs. Edson Grossman, Kim Solis, Woody Multani and colleagues, with an educational alan from [employer]. SIRIA-7 Assessment Billing SIRIA-7 Assessment Tool: SIRIA-7 Assessment 58280 Physical exam (Primary Care) Vital Signs: Last Vital Signs Temp 97.1 F 04/07/24 09:57 Pulse 72 04/07/24 09:57 Resp 12 04/07/24 09:57 BP 118/68 04/07/24 09:57 Pulse Ox 97 04/07/24 09:57 Oxygen Delivery Method Room Air 04/07/24 09:57 BMI result Body Mass Index 25.0 Tobacco/Smoking Status: Tobacco use Status Tobacco use date assessed 04/07/24 04/07/24 09:56 Patient Tobacco Use Status Never used Tobacco 04/07/24 09:56 e-Cigarette/Vaping Use Never Used 04/07/24 09:56 PHQ-9: PHQ-9 Score PHQ-9: Total score 0 04/07/24 10:03 Thrive Assessment: Date of Thrive Assessment Date Thrive assessed 04/07/24 04/07/24 09:56 Currently or been in a relationship where the following occur: No concerns reported Coding Level of Care Code Est Pt Level 5 (50670) Complex EM visit Add On G2211 Diagnoses Situational anxiety F41.8 CPT Codes PROLONG OUTPT/OFFICE VIS - G2212 Additional Codes SIRIA-7 Assessment Billing - SIRIA-7 Assessment Tool: SIRIA-7 Assessment 07622 ([id number]) PHQ-9 - 88316 - PHQ-9 Billing: Yes ([id number]) Assessment & Plan Assessment & Plan (1) Situational anxiety: Code(s): F41.8 - Other specified anxiety disorders Category: Medical Plan . Orders: Referrals Counseling Referral F41.8 - Other specified anxiety disorders Medications: New hydroxyzine HCl 1/2 to 1 tab 3 x day as needed for anxiety 25 mg PO TID PRN 90 tabs 0RF anxiety Patient Instructions: [facility] [address], [place] [address] Crisis Hotlines Suicide prevention, domestic violence, and other crisis hotlines for youth, young adults, and their friends and families. [facility]: The [facility]Act [facility] Safeline helps youth who have run away, are thinking about running away, or who already ran away but are ready to come home. Parents and guardians can also contact the hotline if they are worried about their child running away or if their child has already left home. The hotline is available 24 hours a day, seven days a week. Youth, parents, and guardians can also use the online chat feature on the [facility] website to ask for help and get support, or [place] [address]. [facility] National Suicide Prevention Lifeline: The National Suicide Prevention Lifeline is a network of local crisis centers that are available 03/09 to provide support for youth and adults who are in any kind of emotional crisis. In addition to the main hotline number listed above, there are several other numbers to call depending on your needs: Filipino Language: Deaf and Hard of Hearin1-698.249.2001 Veterans: Disaster Distress: Anyone can also use their online chat feature on their website. [place] Suicide Prevention Lifeline [facility] Helpline: The [facility] Helpline is available to anyone in [place] who is need of emotional support. Anyone can call or text the helpline to receive help from specially trained volunteers. [place] high school and college students can also get online support through the IMHear_ program. For high school students, volunteers ages 15-18 are available Saturday- from 6-9PM. For college students, IMHear_ is available Saturday-Saturday from 5-9PM. The Josh Project - The Josh Project is a 03/09 crisis intervention and suicide prevention hotline for LGBTQ youth. Youth can also text Josh to for support, or use the online chat feature on the Josh Project's website. [employer] is available Saturday-Saturday between 3-10PM. TrevorChat is available seven days a week between 3-10PM. SafeLink: SafeLink is for anyone who is being affected by domestic violence or dating violence. Volunteers at [employer] speak Polish and Filipino, and [employer] also has a service that can provide translation in more than 130 languages. TTY:
[2024-04-07 09:57] VITALS: BP 118/68; PULSE 72; RESP 12; TEMP 36.2; O2SAT 97; BMI 25.0
--- OUTSIDE RECORDS SUMMARY | 2024-04-07 11:11 | XMS_ITS | Clinical Summary ---
Author Organization [facility] Address [address] [place] [address] Care Team Providers Care Cloth Measurer Name Role Phone Pcp, No Primary Care Provider Unavailabl e Social History Tobacco Use Types Packs/Day Years Used Date Smoking Tobacco: Never Assessed Sex and Gender Information Value Date Recorded Sex Assigned at Not on file Gender Identity Not on file Sexual Orientation Not on file Plan of Treatment Health Maintenance Due Date Last Done Comments Hepatitis C Virus Screening 1965 HIV Screening 1978 DTaP/Tdap/Td Vaccines (1 - Tdap) 1984 Hepatitis B Vaccines (1 of 3 - 19+ 3-dose series) 1984 Pap Smear (Ages 21-65) 1986 Mammogram 2005 Colonoscopy 2010 Pneumococcal Vaccines 50+ (1 of 1 - PCV) 05/16/2015 Zoster (Shingles) Vaccine (1 of 2) 05/16/2015 Influenza Vaccine 09/12/2023 COVID-19 Vaccine (1 - 2023-2 5 season) 2023 Pneumococcal Vaccine: Pediat kendrick (0-5 Years) and At-Risk Patients (6 to 49 Years) Aged Out No longer eligible b ased on patient's age to complete this topic Care Teams Cloth Measurer Relationship Specialty Start Date End Date Pcp, No PCP - General General Medicine 05/06/23
== END 2024-04-07 10:47 | disposition home or self-care (01) ==
PROVIDERS: PCP Nurse Practitioner Family; Visit Provider Nurse Practitioner Family
DX: F41.8 Other specified anxiety disorders (principal)

== ENCOUNTER → 2024-04-07 09:49 | Outpatient (BNVA) | payer BC, SELFPAY | PROVIDERS: PCP Nurse Practitioner Family; Visit Provider Nurse Practitioner Family | DX: F41.8 Other specified anxiety disorders (principal); Z79.899 Other long term (current) drug therapy | CPT/HCPCS: 96127 ==

== ENCOUNTER 2024-04-30 13:01 | Outpatient (AMB) | payer BC, SELFPAY ==
--- NOTE | 2024-04-30 13:03 | MHC.OFFWIV ---
Intake Vital Signs 04/30/24 13:09 Height 5 ft 4 in Weight 146 lb 4 oz BMI 25.1 BP 104/68 Blood Pressure Location Lt brachial Position Sitting Respiration 12 Pulse 76 Pulse Source Pulse Oximeter Temp 97.1 F Temp Source Oral Pulse Oximetry (%) 99 Oxygen Delivery Method Room Air Intake Visit Reasons: Bronchitis ? (give mask) Intake Note: Patient complaining of persistent coughing, and loosing voice x 9 days. Patient Tobacco Use Status: Never used Tobacco Allergies acetaminophen [From Percocet] Allergy (Intermediate, Verified 04/30/24 13:13) Hives morphine [MORPHINE] Allergy (Intermediate, Verified 04/30/24 13:13) HIVES, vomiting oxycodone [OXYCODONE] Allergy (Intermediate, Verified 04/30/24 13:13) VOMITING benzonatate Allergy (Unknown, Verified 04/30/24 13:13) headaches meperidine [From Demerol] Allergy (Unknown, Verified 04/30/24 13:13) swelling NSAIDS (Non-Steroidal Anti-Inflamma Allergy (Unknown, Verified 04/30/24 13:13) swelling meloxicam Adverse Reaction (Unknown, Verified 04/30/24 13:13) ankle swelling paroxetine [Paxil] Adverse Reaction (Unknown, Verified 04/30/24 13:13) headaches Medication List - Last Reconciled 04/30/24 by SHADI Vogel- ascorbic acid (vitamin C) 1 g PO DAILY atorvastatin 20 mg PO BEDTIME biotin 5,000 mcg PO DAILY cetirizine (Zyrtec) 10 mg PO DAILY PRN cholecalciferol (vitamin D3) 50 mcg PO DAILY duloxetine 60 mg PO DAILY fluocinonide 0.05% 1 appl topical BID-QID PRN gabapentin 200 mg (2 x 100 mg) PO BEDTIME 90 days hydroxyzine HCl 25 mg PO TID PRN ocrelizumab (Ocrevus) 600 mg IV [id number] vitamin B complex 1 tab PO DAILY Do you need a note to return to daycare/school/sports/work: Yes HPI HPI Comments History of Present Illness Details History - The patient is a 58-year-old female presenting with persistent cough and loss of voice. - The symptoms commenced nine days prior, originally thought to be allergic but later noted to be similar to those among workplace contacts. - Initial scratchy throat symptoms evolved into a severe cough leading to total voice loss over the weekend. - Extensive self-treatment with [id number] cold medicines and Immune boosters offered no symptom relief. - The cough persists without accompanying fever or fatigue but impacts the patient's sleep and causes abdominal discomfort from strain. Physical Exam General: Awake, alert. No apparent distress Eyes: Sclera and conjunctiva clear bilaterally Nose: Nares patent, turbinates within normal limits, no sinus tenderness with palpation bilaterally Ears: Tympanic membranes intact and clear bilaterally Throat: Moist mucosa membrane, pharynx within normal limits, voice wraspy Cardiovascular: Regular rate and rhythm Respiratory: Clear to auscultation bilaterally, occassional congested cough noted during exam w/o distress. Results - Labs, Tests, Diagnostics: A swab for influenza, COVID-19, and RSV was suggested but declined. Discussion Notes I discussed with the patient the likely viral etiology of her symptoms, which are consistent with current viral infections circulating in her area, potentially including COVID-19. I explained the benefits of reducing airway inflammation with prednisone, which could help alleviate her symptoms and improve her breathing and that cough syrup with Codeine would aid in managing her nocturnal cough and inducing sleep. I emphasized the importance of adhering to the prescribed medication regimen, including taking prednisone in the morning with food. We also reviewed the potential side effects of these medications and urged her to use Mucinex during the day to manage mucus. Follow-up plans were not explicitly discussed; however, I recommended resting and considering time off work to ensure recovery. Assessment and Plan 1. Upper Respiratory Tract Infection: Symptoms likely result from a viral upper respiratory tract infection. Prescribed prednisone for airway inflammation reduction (five-day course, one tablet daily with food) and nighttime Codeine cough syrup for nocturnal cough relief. Advised use of Mucinex during the day for mucus management. Highlighted adherence to the medication regimen and potential side effects. Patient Instructions - Take prescribed prednisone once daily in the morning with food. - Use cough syrup with Codeine at bedtime to manage coughing and aid sleep. - Continue using Mucinex during the day as needed for mucus management. - Rest as much as possible and consider reducing work commitments temporarily to support recovery. - Notify us if symptoms worsen or do not improve with the prescribed treatment. - RTO in 2-3 weeks to fu on chronic conditions Consent Patient was informed and verbally consented to the use of an ambient scribe for clinic note documentation during this visit. Total time spent caring for the patient today was 30 minutes. This includes time spent before the visit reviewing the chart, time spent during the visit, and time spent after the visit on documentation, reviewing laboratory results, diagnostic imaging, medications, performing a medically necessary evaluation, counseling on diagnoses, care coordination, ordering appropriate tests, ordering appropriate medications, review of tests performed by other providers, reporting test results with the patient, communication with other healthcare providers. [facility] Medical History (Updated 04/30/24 @ 17:43 by Kelly Roger, DIRECTOR MARKETING COMMUNICATIONS-) Back pain Stark's palsy Chest pain Complex ovarian cyst De Quervain's tenosynovitis, right Diverticulitis Dyslipidemia Generalized muscle ache Hx of mammogram (~03/2024) IBS (irritable bowel syndrome) Kidney stones Menopause Multiple sclerosis Myoma Neuropathy Physical exam Pulmonary embolism Spinal cord lesion Trigger finger of all digits of left hand Surgical History (Updated 04/30/24 @ 08:19 by Kelly Roger, DIRECTOR MARKETING COMMUNICATIONS-) History of adenoidectomy History of breast augmentation History of section History of colonoscopy (~2023) History of shoulder surgery History of tonsillectomy History of umbilical hernia repair Family History (Updated 08/28/23 @ 11:00 by Char Chapman MA) Father Heart disease CVD (cardiovascular disease) Mother HTN (hypertension) Maternal Grandfather No problems noted. Maternal Grandmother No problems noted. Paternal Grandfather No problems noted. Paternal Grandmother CVD (cardiovascular disease) Brother No problems noted. Brother No problems noted. Son No problems noted. Son Type 1 diabetes Social History (Updated 04/19/23 @ 09:31 by Sharda Del Rosario CMA) Household Members: Children Household Members Other:: 2 sons, 2 dogs Both parents involved: No Caregiver staying overnight: No Housing: House Are you a primary insurance healthcare consultant to a significant other at home: No Do you presently have visiting nurse or other home services: No 75 years or older and lives alone: No Alcohol intake: never Patient Tobacco Use Status: Never used Tobacco e-Cigarette/Vaping Use: Never Used service: No Current occupational status: employed Current occupation: [employer] Current occupational exposures/hazards: Yes Sexual orientation: Unable to collect Gender identity: Unable to collect Cognitive needs: No Hearing needs: No Vision needs: No Physical Exam Vital Signs: Last Vital Signs Temp 97.1 F 04/30/24 13:09 Pulse 76 04/30/24 13:09 Resp 12 04/30/24 13:09 BP 104/68 04/30/24 13:09 Pulse Ox 99 04/30/24 13:09 Oxygen Delivery Method Room Air 04/30/24 13:09 BMI result Body Mass Index 25.1 Assessment & Plan Assessment & Plan (1) Viral bronchitis: Code(s): J20.8 - Acute bronchitis due to other specified organisms (2) Laryngitis: Code(s): J04.0 - Acute laryngitis Plan . Medications: New prednisone 50 mg PO DAILY 5 tabs 0RF 5 days codeine-guaifenesin 10-100 mg/5 mL 10 mL PO Q6H PRN 200 mL 0RF cough 5 days Coding Level of Care Code Est Pt Level 4 (34827) Diagnoses Viral bronchitis J20.8 Laryngitis J04.0
[2024-04-30 13:09] VITALS: BP 104/68; PULSE 76; RESP 12; TEMP 36.2; O2SAT 99; BMI 25.1
--- OUTSIDE RECORDS SUMMARY | 2024-04-30 15:29 | XMS_ITS | Clinical Summary ---
Author Organization [facility] Address [address] [place] [address] Care Team Providers Care Support Merchandiser Name Role Phone Pcp, No Primary Care [...] age to complete this topic Care Teams Support Merchandiser Relationship Specialty Start Date End Date Pcp, No PCP - General General Medicine 05/06/23
--- OUTSIDE RECORDS SUMMARY | 2024-04-30 15:29 | XMS_ITS | Continuity of Care Document ---
Author Organization [facility] Address [address] [facility] [place] [address]- Care Team Providers Care Sailboat Captain Name Role Phone Kelly Burnham NP Primary Care Physician Encounter 04/10/24 - 04/17/24 [facility] [address], [facility] [address] [place], [place] [address] Attending Physician: Kelly Burnham NP Admitting Physician: Kelly Burnham NP Referring Physician: Kelly Burnham NP Encounter Type: OutPatient One Time Allergies, Adverse Reactions, Alerts Substance Criticality Severity Reaction Reaction Severity Status morphine Hives Active Demerol HCl Edema Active Percocet 5/325 C/O - vomiting Active Adhesive Bandage Act shayy Immunizations Given and Recorded Vaccine Date Status Refusal Reason SARS-CoV-2 (COVID-19) mRNA BNT-162b2 vac 01/02/21 Given Medications Galina Allergy = 60 mg, By Mouth, 2 times a day, 0 Refills, Maintenance, 07/13/14 9:59:33 AM EDT Start Date: 07/13/14 Status: Ordered Repeat number: 1 atorvastatin 10 mg oral tablet 1 tablet = 10 mg, By Mouth, Daily, 0 Refills, Maintenance, 12/15/21 10:56:00 AM EDT, Partial fill upon patient request if the prescription is for a schedule II opioid drug. Start Date: 12/15/21 Status: Ordered Repeat number: 1 B Complex 100 0 Refills, Maintenance, 12/15/21 10:56:00 AM EDT, Partial fill upon patient request if the prescription is for a schedule II opioid drug. Start Date: 12/15/21 Status: Ordered Repeat number: 1 Cholecalciferol By Mouth, Daily, 0 Refills, Maintenance, 12/15/21 10:56:00 AM EDT, Partial fill upon patient requestif the prescription is for a schedule II opioid drug. Start Date: 12/15/21 Status: Ordered Repeat number: 1 Cymbalta 20 mg oral enteric coated capsule 1 capsule = 20 mg, By Mouth, 2 times a day, 0 Refills, Maintenance, 12/15/21 10:56:00 AM EDT, Partial fill upon patient request if the prescription is for a schedule II opioid drug. Start Date: 12/15/21 Status: Ordered Repeat number: 1 gabapentin 100 mg oral capsule 200 mg, 2, capsule, By Mouth, Daily, Refills 0, Maintenance, 07/24/18 8:10:27 AM EDT Start Date: 07/24/18 Status: Ordered Repeat number: 1 Golytely - oral powder for reconstitution See Instructions, Per instructions from GI., # 4,000 mL, 0 Refills, Maintenance, 11/20/22 8:51:00 AM EDT, [facility], Partial fill upon patient request if the prescription is for a schedule II opioid drug., Per instructions from GI., 163, cm, 11/20/22 8:32:00 EDT, Height, 66.7, kg,12/19/21 7:04:00 EST, Dry Weight Start Date: 11/20/22 Status: Ordered Quantity: 4000.0 Unit: mL Repeat number: 1 Ocrevus 600 mg, IV Infusion, Every 6 months, Maintenance, 12/15/21 10:57:00 AM EDT Start Date: 12/15/21 Status: Ordered Repeat number: 1 Vitamin C By Mouth, Daily, 0 Refills, Maintenance, 12/15/21 10:56:00 AM EDT, Partial fill upon patient requestif the prescription is for a schedule II opioid drug. Start Date: 12/15/21 Status: Ordered Repeat number: 1 Results Radiology Reports * Exam Date Time Procedure Performing Provider Status 04/10/24 11:57 AM MM Digital Mammo Screening Simard, Ch ristine; Auth (Verified) Notes: (MM Digital Mammo Screening) Reason For Exam: Z12.31 SCREENING RESULT: MM Digital Mammo Screening PROCEDURE: MM Digital Mammo Screening INDICATION: Screening for breast cancer. No known palpable abnormalities. Bilateral saline implantsin 2008. COMPARISON: Multiple prior comparison studies, most recent on 01/28/2023 TECHNIQUE: Full-field digital CC and MLO 3D tomosynthesis images of both breasts were acquired withimplants displaced. In addition, 2-D MLO and CC views were obtained. Computer-aided detection (CAD)was utilized in the interpretation of this study. DENSITY: The breast tissue is heterogeneously dense, which may obscure small masses. FINDINGS: No suspicious masses, suspicious calcifications, or areas of architectural distortion areseen to suggest malignancy. There are bilateral subpectoral saline implants with no evidence of complication. IMPRESSION: No mammographic evidence of malignancy. RECOMMENDATION: Annual mammographic screening BI-RADS: 2 (Benign) Lay letter mailed to patient WSN: [id number] Ordering Physician: Kelly Burnham Dictated By: Lian Chapman MD Dictated Date/Time: 04/10/24 4:57 pm Reviewed By: Lian Chapman MD Signed By: Lian Chapman MD Signed Date/Time: 04/10/24 4:57 pm Transcribed By: TIFFANY Emt I/85 Date/Time: 04/10/24 4:55 pm Birads: Social History Social History Type Response Smoking Status Never smoker entered on: 07/14/14 Sex Sex Representation Female (finding) Patient Care team information Care Team Personnel Name: Kelly Burnham NP Position: [facility] Outreach Member Role: PCP Address: [address] [place] [address] Telecom: Care Team Related Persons Name: DENISA BURNHAM Name: ANGELA SMITH Insurance Providers Guarantor name: MICHAEL LUIS Health Plan Information #: 1 Payer: [place] Member Number: [id number] Policy Number: NA Group Number: [id number] Health Plan Information #: 2 Payer: [place] Member Number: [id number] Policy Number: NA Group Number: [id number]
--- OUTSIDE RECORDS SUMMARY | 2024-04-30 15:29 | XMS_ITS | Continuity of Care Document ---
Author Organization [facility] Address [address] [facility], [address] [place] [address]- Care Team Providers Care Director Call Center Sales Name Role Phone Kelly Burnham NP Primary Care Physician [phone] Encounter 03/10/24 - 04/24/24 [facility] [address], [address] [place], [place] [address] Attending Physician: Kelly Burnham NP Admitting Physician: Kelly Burnham NP Referring Physician: Kelly Burnham NP Encounter Type: Pre-Outpt Allergies, Adverse Reactions, Alerts Substance Criticality Severity [...] Date: 12/15/21 Status: Ordered Repeat number: 1 Social History Social History Type Response Smoking Status Never smoker entered on: 07/14/14 Sex Sex Representation Female (finding) Patient Care team information Care Team Personnel Name: Kelly Burnham NP Position: [facility] Outreach Member Role: PCP Address: [address] [place], [place] [id number]- Telecom: Care Team Related Persons Name: DENISA BURNHAM Name: ANGELA SMITH Insurance Providers Guarantor name: MICHAEL LUIS Health Plan Information #: 1 Payer: [facility] PPO Member Number: [id number] Policy Number: NA Group Number: [id number] Health Plan Information #: 2 Payer: [place] Member Number: NA Policy Number: NA Group Number: [id number]
== END 2024-04-30 13:31 | disposition home or self-care (01) ==
LOC: HO.HMCFM 13:02
PROVIDERS: PCP Nurse Practitioner Family; Visit Provider Nurse Practitioner Family
DX: J20.8 Acute bronchitis due to other specified organisms (principal); J04.0 Acute laryngitis

== ENCOUNTER → 2024-06-15 15:07 | Outpatient (BNVA) | payer BC, SELFPAY | PROVIDERS: PCP Nurse Practitioner Family; Visit Provider Nurse Practitioner Family ==

== ENCOUNTER → 2024-06-15 15:07 | Outpatient (AMB) | payer BC, SELFPAY ==
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
--- OUTSIDE RECORDS SUMMARY | 2024-06-15 16:42 | XMS_ITS | Continuity of Care Document ---
Author Organization [facility] Address [address] [place] [address] Dr [address] [place] [address] Phone Care Team Providers Care Manager Telemarketing Name Role Phone David DILLON FACS T [...] E&M Established 15 Mins [facility], [address] [place] [address] [address], [place], [id number], tel:[phone] CVCharline [facility] Spider Veins - (Telangiect thu) 3 David DILLON FACS T KYA Felder. [address] [address], [place], [address], [place]. tel:[phone] Referring Provider: Jhony Hernandez MD, FACS, RVT [facility], [address] [address], [place], [address]. tel:[phone] [facility], [address] [place] [address] [address]Jodie [place], [id number], tel:[phone] CVCharline Durham [place] [facility] Spider Veins - (Telangiect thu) 3 Mollcarmelina Steinberg . [address] [facility], [address], [facility] [place], [id number] , [place]. tel:[phone] Referring Provider: Jhony Hernandez MD FACS RVT [facility], [address] [facility] [address], [facility] [place], [address]. tel:[phone] Family History Family Member Type Diagnosis Age [...]
--- OUTSIDE RECORDS SUMMARY | 2024-06-15 16:42 | XMS_ITS | Encounter Summary ---
Author Organization [facility] Address [address] [place] [address] Care Team Providers Care Food Broker Name Role Phone Pcp, No Primary Care Provider Unavailabl e Encounter Details Date Type Department Care Team (Late st Contact Info) Description 05/14/2024 Scanned Document [address] [facility] [place] [address] Radiology, Scan Social History Tobacco Use Types Packs/Day Years Used Date Smoking Tobacco: Never Assessed Comments Unknown Sex and Gender Information Value Date Recorded Sex Assigned at Not on file Legal Sex Female 12:08 PM EDT Gender Identity Not on file Sexual Orientation Not on file documented as of this encounter Plan of Treatment Not on file documented as of this encounter Procedures Procedure Name Priority Date/Time Associated Diagnosis Comments HX OUTSIDE ORDER 05/14/2024 documented in this encounter Results * OUTSIDE ORDER (05/14/2024) us Scan Radiology HX AMB PROCEDURES Final Result documented in this encounter Visit Diagnoses Not on filedocumented in this encounter Care Teams Food Broker Relationship Specialty Start Date End Date Pcp, No PCP - General General Medicine 05/06/23 documented as of this encounter
--- OUTSIDE RECORDS SUMMARY | 2024-06-15 16:43 | XMS_ITS ---
Author Name [facility] Organization Unknown Encounters Encounter Type Encounter Reason Primary Diagnosis Location Date Ambulatory [facility] 05/08/2023 Care Team Organization Name Specialty Phone Email Start Date End Da te [facility] PCP Ship Rigger 05/08/2023 04/29/2024 [facility] NO PCP Primary Care 05/06/2023
--- OUTSIDE RECORDS SUMMARY | 2024-06-15 16:43 | XMS_ITS | Clinical Summary ---
Author Organization [facility] Address [address] [place] [address] Care Team Providers Care Aquatic Habitat Biologist Name Role Phone Pcp, No Primary Care Provider Unavailabl e Encounters Date Type Department Care Team Description 05/14/2024 Scanned Document [address] [place] [address] Radiology, Scan from Last 3 Months Social History Tobacco Use Types Packs/Day Years [...] (1 of 3 - 19+ 3-dose series) 05/1984 Pap Smear (Ages 21-65) 1986 Mammogram 2005 Colonoscopy 2010 Pneumococcal Vaccines 50+ (1 of 1 - PCV) 05/16/2015 Zoster (Shingles) Vaccine (1 of 2) 05/16/2015 Influenza Vaccine 09/12/2023 COVID-19 Vaccine ( - 2023- season) 2023 Procedures Procedure Name Priority Date/Time Associated Diagnosis Comments HX OUTSIDE ORDER 05/14/2024 from Last 3 Months Results * OUTSIDE ORDER (05/14/2024) us Scan Radiology HX AMB PROCEDURES Final Result from Last 3 Months Insurance [facility] - EMPLOYEE PLAN POWERED BY [employer] Care Teams Aquatic Habitat Biologist Relationship Specialty Start Date End Date Pcp, No PCP - General General Medicine 05/06/23
[2024-06-15 16:46] VITALS: BP 130/90; PULSE 64; O2SAT 98
== END ==
PROVIDERS: PCP Nurse Practitioner Family; Visit Provider Nurse Practitioner Family
DX: K29.00 Acute gastritis without bleeding (principal); Z02.83 Encounter for blood-alcohol and blood-drug test

== ENCOUNTER 2024-06-17 12:33 | Outpatient (AMB) | payer BC, SELFPAY ==
--- NOTE | 2024-06-17 12:35 | MHC.PC.OV ---
Vital Signs 06/17/24 12:41 Height 5 ft 4 in Weight 137 lb 6 oz BMI 23.6 BP 136/74 Blood Pressure Location Rt brachial Position Sitting Respiration 12 Pulse 81 Pulse Source Pulse Oximeter Temp 97.4 F Temp Source Oral Pulse Oximetry (%) 99 Oxygen Delivery Method Room Air Intake Visit Reasons: Emotional stress Intake Note: Patient here for support with her son Latent Print Examiner Required: No Allergies acetaminophen [From Percocet] Allergy (Intermediate, Verified 06/17/24 12:37) Hives morphine [MORPHINE] Allergy (Intermediate, Verified 06/17/24 12:37) HIVES, vomiting oxycodone [OXYCODONE] Allergy (Intermediate, Verified 06/17/24 12:37) VOMITING benzonatate Allergy (Unknown, Verified 06/17/24 12:37) headaches meperidine [From Demerol] Allergy (Unknown, Verified 06/17/24 12:37) swelling NSAIDS (Non-Steroidal Anti-Inflamma Allergy (Unknown, Verified 06/17/24 12:37) swelling meloxicam Adverse Reaction (Unknown, Verified 06/17/24 12:37) ankle swelling paroxetine [Paxil] Adverse Reaction (Unknown, Verified 06/17/24 12:37) headaches Medication List - Last Reconciled 06/17/24 by YOSHI VogelP- ascorbic acid (vitamin C) 1 g PO DAILY atorvastatin 20 mg PO BEDTIME biotin 5,000 mcg PO DAILY cetirizine (Zyrtec) 10 mg PO DAILY PRN cholecalciferol (vitamin D3) 50 mcg PO DAILY duloxetine 60 mg PO DAILY fluocinonide 0.05% 1 appl topical BID-QID PRN gabapentin 200 mg (2 x 100 mg) PO BEDTIME 90 days hydroxyzine HCl 25 mg PO TID PRN ipratropium-albuterol 20-100 mcg/actuation (Combivent Respimat) 1 puff inhalation QID lorazepam (Ativan) 0.5 mg PO BID PRN ocrelizumab (Ocrevus) 600 mg IV [id number] ondansetron 8 mg PO Q8H vitamin B complex 1 tab PO DAILY Tobacco use date assessed: 06/17/24 Dental Screening Dental Screen Date: 06/17/24 Did you have a dental visit in the last 12 months?: Yes Did you have a dental problem in the last 6 months where you did not have access to dental care?: No Was dental information given to patient?: Patient has dentist HPI HPI Comments History of Present Illness Details 59 y/o F here today with acute grief Son, Tesfaye, committed suicide last night She has support of her friends Son Bonifacio has been support as well Denies SI/HI Not active in counseling but open to idea On duloxetine No services yet Exam Awake alert Tearful, mood and affect appropriate for setting. Future oriented, talked about returning to work. Contracts for safety. Plan: Crisis info provided at discharge Referral to [facility] for close check in to ensure she has the counseling support she needs; i recommended [facility] as they have walk in. Ativan prn acute anxiety Encouraged grief support groups FMLA paperwork completed at time of visit. Incapacity leave 06/20/24-07/07/24. Intermittent leave 2 episodes/week each lasting 1 day starting 07/08/24-01/08/25. Pt made aware we can change that if her needs change. Offered empathy and support. Total time spent caring for the patient today was 120 minutes. This includes time spent before the visit reviewing the chart, time spent during the visit, and time spent after the visit on documentation, reviewing laboratory results, diagnostic imaging, medications, performing a medically necessary evaluation, counseling on diagnoses, care coordination, ordering appropriate tests, ordering appropriate medications, review of tests performed by other providers, reporting test results with the patient, communication with other healthcare providers. [facility], [facility] Medical History (Updated 06/17/24 @ 14:29 by Kelly Roger, SHADI-BC) Back pain Stark's palsy Chest pain Complex ovarian cyst De Quervain's tenosynovitis, right Diverticulitis Dyslipidemia Encounter for drug screening Gastritis Generalized muscle ache Hx of mammogram (~03/2024) IBS (irritable bowel syndrome) Kidney stones Menopause Multiple sclerosis Myoma Neuropathy Physical exam Pulmonary embolism Spinal cord lesion Trigger finger of all digits of left hand Surgical History (Updated 04/30/24 @ 08:19 by Kelly Roger, SECURITIES UNDERWRITER-BC) History of adenoidectomy History of breast augmentation History of section History of colonoscopy (~2023) History of shoulder surgery History of tonsillectomy History of umbilical hernia repair Family History (Updated 08/28/23 @ 11:00 by Char Chapman MA) Father Heart disease CVD (cardiovascular disease) Mother HTN (hypertension) Maternal Grandfather No problems noted. Maternal Grandmother No problems noted. Paternal Grandfather No problems noted. Paternal Grandmother CVD (cardiovascular disease) Brother No problems noted. Brother No problems noted. Son No problems noted. Son Type 1 diabetes Social History (Updated 04/19/23 @ 09:31 by Sharda Del Rosario CMA) Household Members: Children Household Members Other:: 2 sons, 2 dogs Both parents involved: No Caregiver staying overnight: No Housing: House Are you a primary family day carer to a significant other at home: No Do you presently have visiting nurse or other home services: No 75 years or older and lives alone: No Alcohol intake: never Patient Tobacco Use Status: Never used Tobacco e-Cigarette/Vaping Use: Never Used service: No Current occupational status: employed Current occupation: [email or web address] Current occupational exposures/hazards: Yes Sexual orientation: Unable to collect Gender identity: Unable to collect Cognitive needs: No Hearing needs: No Vision needs: No Questionnaire Thrive Questionnaire Date Thrive assessed: 03/02/24 I am a: Patient What is your living situation today?: I have a steady place to live Within the past 12 months, did the food you bought not last and you didn't have the money to get more?: Never true Within the past 12 months, did you worry whether your food would run out before you got money to buy more?: Never true Do you have trouble paying for medicines?: No Do you have trouble getting transportation to medical appointments?: No Do you have trouble paying your heating and electricity bill?: No Do you have trouble taking care of your child, family member or friend?: No Do you have trouble with day-to-day activities such as bathing, preparing meals, shopping, managing finances, etc.?: No Are you currently unemployed and looking for a job?: No Are you interested in more education?: Yes Please select the resources that you would like help with: None Currently or been in a relationship where the following occur: No concerns reported THRIVE Score: 0 SIRIA-7 AMB Questionnaire SIRIA-7 Date SIRIA - 7 assessed: 04/07/24 Source: Developed by Kim Villar.W. Will, Woody Multani and colleagues, with an educational alan from [employer]. Physical exam (Primary Care) Vital Signs: Last Vital Signs Temp 97.4 F 06/17/24 12:41 Pulse 81 06/17/24 12:41 Resp 12 06/17/24 12:41 BP 136/74 06/17/24 12:41 Pulse Ox 99 06/17/24 12:41 Oxygen Delivery Method Room Air 06/17/24 12:41 BMI result Body Mass Index 23.6 Tobacco/Smoking Status: Tobacco use Status Tobacco use date assessed 06/17/24 06/17/24 12:40 Patient Tobacco Use Status Never used Tobacco 06/17/24 12:40 e-Cigarette/Vaping Use Never Used 06/17/24 12:40 Thrive Assessment: Date of Thrive Assessment Date Thrive assessed 03/02/24 06/17/24 12:40 Currently or been in a relationship where the following occur: No concerns reported Coding Level of Care Code Est Pt Level 5 (34888) Complex EM visit Add On G2211 Diagnoses Grief at loss of child F43.21; Z63.4 Assessment & Plan Assessment & Plan (1) Grief at loss of child: Code(s): F43.21 - Adjustment disorder with depressed mood; Z63.4 - Disappearance and of family member Category: Medical Plan . Orders: Referrals Nurse Navigator Referral F43.21 - Adjustment disorder with depressed mood, Z63.4 - Disappearance and of family member Medications: New lorazepam (Ativan) 0.5 mg PO BID PRN 30 tabs 1RF anxiety Patient Instructions: National Suicide and Crisis Lifeline: Available 24 hours a day, 7 days a week, 365 days a year Dial 708 with any telephone to speak to someone immediately [facility] (Mental / Behavioral health therapist: [address] [place], [place] [id number] [facility] at [facility]: [address] [place] [address] Open from 10am - 12pm (walk ins welcome) [facility] Crisis Services: [address] [place] [address] Walk in hours from 10am - 12pm Behavioral health Network: [address] [place] [address] [address] [place] [address] Saturday through Saturday 8am - 8pm Saturday and Saturday 9am - 5pm Crisis Hotlines Suicide prevention, domestic violence, and other crisis hotlines for youth, young adults, and their friends and families. [facility]: The [facility] Safeline helps youth who have run away, are thinking about running away, or who already ran away but are ready to come home. Parents and guardians can also contact the hotline if they are worried about their child running away or if their child has already left home. The hotline is available 24 hours a day, seven days a week. Youth, parents, and guardians can also use the online chat feature on the [facility]'s website to ask for help and get support, or can send a text to [facility]. [facility] National Suicide Prevention Lifeline: The [place] Suicide Prevention Lifeline is a network of local crisis centers that are available 03/09 to provide support for youth and adults who are in any kind of emotional crisis. In addition to the main hotline number listed above, there are several other numbers to call depending on your needs: Nigerian Language: Deaf and Hard of Hearin1-567.740.3641 Veterans: Disaster Distress: Anyone can also use their online chat feature on their website. [place] Suicide Prevention Lifeline [facility] Helpline: The [facility] Helpline is available to anyone in [place] who is need of emotional support. Anyone can call or text the helpline to receive help from specially trained volunteers. [place] high school and college students can also get online support through the IMHear_ program. For high school students, volunteers ages 15-18 are available Saturday- from 6-9PM. For college students, IMHear_ is available Saturday-Saturday from 5-9PM. The Josh Project - The Josh Project is a 24/ crisis intervention and suicide prevention hotline for LGBTQ youth. Youth can also text Josh to for support, or use the online chat feature on the Josh Project's website. [employer] is available Saturday-Saturday between 3-10PM. TrevorChat is available seven days a week between 3-10PM. SafeLink: SafeLink is for anyone who is being affected by domestic violence or dating violence. Volunteers at [employer] speak Khmer and Nigerian, and [employer] also has a service that can provide translation in more than 130 languages. TTY:
[2024-06-17 12:41] VITALS: BP 136/74; PULSE 81; RESP 12; TEMP 36.3; O2SAT 99; BMI 23.6
--- OUTSIDE RECORDS SUMMARY | 2024-06-17 13:40 | XMS_ITS | Encounter Summary ---
Author Organization [facility] Address [address] [place] [address] Care Team Providers Care Auto Body Repair Estimator Name Role Phone Pcp, No Primary Care Provider Unavailabl e Encounter Details Date Type Department Care Team (Late st Contact Info) Description 05/14/2024 Scanned Document [address] [place] [id number] Radiology, Scan Social History Tobacco Use [...] on filedocumented in this encounter Care Teams Auto Body Repair Estimator Relationship Specialty Start Date End Date Pcp, No PCP - General General Medicine 05/06/23 documented as of this encounter
--- OUTSIDE RECORDS SUMMARY | 2024-06-17 13:40 | XMS_ITS | Clinical Summary ---
Author Organization [facility] Address [address] [place] [id number] Care Team Providers Care Gi Technician Name Role Phone Pcp, No Primary Care Provider Unavailabl e Encounters Date Type Department Care Team Description 05/14/2024 Scanned Document [address] [facility] [place] [address] Radiology, Scan from Last 3 [...] Zoster (Shingles) Vaccine (1 of 2) 05/16/2015 COVID-19 Vaccine (1 - season) 2023 Influenza Vaccine 09/11/2024 Procedures Procedure Name Priority Date/Time Associated Diagnosis Comments HX OUTSIDE ORDER 05/14/2024 from Last 3 Months Results * OUTSIDE ORDER (05/14/2024) us Scan Radiology HX AMB PROCEDURES Final Result from Last 3 Months Insurance [facility] - EMPLOYEE PLAN POWERED BY [employer] Care Teams Gi Technician Relationship Specialty Start Date End Date Pcp, No PCP - General General Medicine 05/06/23
--- OUTSIDE RECORDS SUMMARY | 2024-06-17 13:40 | XMS_ITS | Continuity of Care Document ---
Author Organization [facility] Address [address] [place] [address] [address] [place] [id number] Phone Care Team Providers Care Quarantine Inspector Name Role Phone David DILLON FACS T [...] E&M Established 15 Mins [facility], [address] [place] [address] [address], [place], [id number], tel:[phone] CVCharline [facility] Spider Veins - (Telangiect thu) 3 David DILLON FACS T KYA Felder. [address] [address], [place], [address], [place]. tel:[phone] Referring Provider: Jhony Hernandez MD, FACS, RVT [facility], [address] [address], [place], [address]. tel:[phone] [facility], [address] [place] [address] [address] [address]Jodie [place], [id number], tel:[phone] CVCharline [place] [facility] Spider Veins - (Telangiect thu) 3 Mollcarmelina Steinberg . [address] [facility], [address], [facility] [place], [id number] , [place]. tel:[phone] Referring Provider: Jhony Hernandez MD FACS RVT [facility], [address] [facility] [address], [facility] [place], [address]. tel:[phone] Family History Family Member Type Diagnosis Age At Onset No Information Payers Payer name Insurance type Covered green party ID Authoriza tion(s) Self Pay 09 [...]
== END 2024-06-17 14:29 | disposition home or self-care (01) ==
LOC: HO.HMCFM 12:34
PROVIDERS: PCP Nurse Practitioner Family; Visit Provider Nurse Practitioner Family
DX: F43.21 Adjustment disorder with depressed mood (principal); Z63.4 Disappearance and death of family member

== ENCOUNTER → 2024-06-17 12:33 | Outpatient (BNVA) | payer BC, SELFPAY | PROVIDERS: PCP Nurse Practitioner Family; Visit Provider Nurse Practitioner Family ==

== ENCOUNTER 2024-09-04 07:54 | Outpatient (AMB) | payer BC, SELFPAY ==
--- OUTSIDE RECORDS SUMMARY | 2022-06-11 07:30 | XMS_ITS | Continuity of Care Document ---
Author Organization [facility] Address [address] [place] [address] [address] [place] [id number] Phone Care Team Providers Care Painter Helper Sign Name Role Phone David DILLON FACS T KYA, Jhony Felder Unavailable Unavailable Allergies, Adverse Reactions, Alerts Substance Reaction Status Criticality morphine Active No Information OXYCODONE HCL Active No Information acetaminophen Active No Information Procedures Procedure Date Office/Outpt E&M Established 15 Mins June Sngl/mx Inj Scleros-veins; Rhodes Advance Directives Directive Yes / No Effective Date File Name No Information Encounters Encounter Description Practice Location Reason(s) For Visit Diagnoses Date Provider Providers Copied on Encounter Office/Outpt E&M Established 15 Mins [facility], [address] [place] [address] [address], [place], [id number], tel:[phone] [facility]Charline [facility] Spider Veins - (Telangiect thu) 3 David DILLON FACS T KYA Felder. [address] [address], [place], [address], [place]. tel:[phone] Referring Provider: Jhony Hernandez MD, FACS, [facility], [address] [address], [place], [address]. tel:[phone] [facility], [address] [place] [address] [address] [address], [id number], tel:[phone] CVCharline [place] [facility] Spider Veins - (Telangiect thu) 3 Mollcarmelina Steinberg . [address], [address], [facility] [place], [id number] , [place]. tel:[phone] Referring Provider: Jhony Hernandez MD FACS [facility], [address], [facility] [place], [address]. tel:[phone] Family History Family Member Type Diagnosis Age At Onset No Information Payers Payer name Insurance type Covered constitution party ID Authoriza tion(s) Self Pay 09 Social History Type Description Quantity Date Captured Comments Alcohol Use Details No Caffeine Use Details Unknown Tobacco Use Status Current non-smoker Smoking Status Never smoker Non-Smoking Tobacco Use Details : No Details Available : No Details Available Sex Female Chief Complaint And Reason For Visit No Information Reason For Referral Reason For Referral No Information Plan Of Treatment Date Type Action Status Goal Tobacco cessation counseling completed History Of Present Illness Encounter Date Complaint History Of Prese nt Illness No Information Functional Status Date Functional Assessmen t No Information Instructions Date Instruction Additional Infor mation No Information Assessments Type Assessment Date assessment Spider Veins - (Telangiectasia) Patient Care Teams Name Effective Dates (start - stop) Status Members No Information
--- NOTE | 2024-09-04 07:57 | A.OFFPC_ITS ---
Vital Signs 09/04/24 08:01 Height 5 ft 4 in Weight 135 lb 4 oz BMI 23.2 BP 102/67 Blood Pressure Location Lt brachial Position Sitting Respiration 12 Pulse 72 Pulse Source Pulse Oximeter Temp 97.1 F Temp Source Oral Pulse Oximetry (%) 99 Oxygen Delivery Method Room Air Intake Visit Reasons: 6 mo CPE Intake Note: CPE. Patient need refill on meds. Assistant Gm Of Content & Delivery Required: No Allergies acetaminophen (From Percocet) Allergy (Intermediate, Verified 09/04/24 08:07) Hives morphine (MORPHINE) Allergy (Intermediate, Verified 09/04/24 08:07) HIVES, vomiting oxycodone (OXYCODONE) Allergy (Intermediate, Verified 09/04/24 08:07) VOMITING benzonatate Allergy (Unknown, Verified 09/04/24 08:07) headaches meperidine (From Demerol) Allergy (Unknown, Verified 09/04/24 08:07) swelling NSAIDS (Non-Steroidal Anti-Inflamma Allergy (Unknown, Verified 09/04/24 08:07) swelling meloxicam Adverse Reaction (Unknown, Verified 09/04/24 08:07) ankle swelling paroxetine (Paxil) Adverse Reaction (Unknown, Verified 09/04/24 08:07) headaches Medication List - Last Reconciled 09/04/24 by SHADI Vogel- ascorbic acid (vitamin C) 1 g PO DAILY atorvastatin 20 mg PO BEDTIME biotin 5,000 mcg PO DAILY cetirizine (Zyrtec) 10 mg PO DAILY PRN cholecalciferol (vitamin D3) 50 mcg PO DAILY duloxetine 60 mg PO DAILY fluocinonide 0.05% 1 appl topical BID-QID PRN gabapentin 200 mg (2 x 100 mg) PO BEDTIME 90 days hydroxyzine HCl 25 mg PO TID PRN ipratropium-albuterol 20-100 mcg/actuation (Combivent Respimat) 1 puff inhalation QID lorazepam (Ativan) 0.5 mg PO BID PRN ocrelizumab (Ocrevus) 600 mg IV [id number] ondansetron 8 mg PO Q8H vitamin B complex 1 tab PO DAILY Tobacco use date assessed: 09/04/24 Dental Screening Dental Screen Date: 09/04/24 Did you have a dental visit in the last 12 months?: Yes Did you have a dental problem in the last 6 months where you did not have access to dental care?: No Was dental information given to patient?: Patient has dentist HPI HPI Comments History of Present Illness Details 59-year-old female with hyperlipidemia, left knee medial meniscus tear, right de Quervains tenosynovitis, left ring trigger finger, chronic R meniscal tear, multiple sclerosis, COVID pneumonia with PE October of 2021, Stark's palsy, diverticulitis, IBS, renal stones neuropathy, menopause Status post adenoidectomy, breast augmentation, , shoulder surgery, tonsillectomy, umbilical hernia repair 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 Repeat 10 year ... Mammogram 03/2024 BI-RADS 2 benign DEXA 05/03/2023 WNL Pap 10/2019, due for repeat with Dr Jhaveri Tdap 05/2023 At [facility] Hematology rn charge Pulmonology > cleared from further follow up Rheumatology Neuro [facility] - The patient is a 59-year-old female pr esenting for a complete physical exam. - History of hyperlipidemia; takes atorv astatin 20 mg daily. - Vitamin D deficiency managed with lucas min D3 50 mcg daily. - Menopausal symptoms treated with gabap entin 200 mg at bedtime. - Seasonal allergies managed with Zyrtec . - Multiple Sclerosis managed with ocreli zumab - Reports use of supplements including B iotin, vitamin C, and vitamin B complex for wellness - In counseling to help w/ loss of son. This has been good. ROS: Constitutional: Denies fever. Skin: Denies rash. Eye: Denies eye pain. ENMT: Denies sore throat and nasal congestion. Respiratory: Denies shortness of breath and cough. Gastrointestinal: Denies nausea, vomiting or abdominal pain. Cardiovascular: Denies chest pain and syncope. Genitourinary: Denies dysuria. Musculoskeletal: Denies back pain and extremity pain. Neurologic: Denies headaches, confusion, and weakness. Psychiatric: Denies suicidal thoughts and substance abuse. Allergy/ Immunologic: Denies impaired immunity. Exam: General: Well developed, well nourished, in no acute distress. Appears stated age. Head: Normocephalic, atraumatic. Eyes: Pupils are equal, round and reactive to light and accommodation. Conjunctivae are clear. Vision grossly normal. Ears: TMs clear AU, EACS WNL Nose: Patent, without discharge. Mouth: There are no ulcers or lesions noted. No inflammation, no post nasal drip, no plaques nor exudates. Neck: Supple, no adenopathy or thyromegaly. Lungs: Clear to auscultation bilaterally. No rales, rhonchi or wheeze noted. Good air flow in all millan. Heart: Regular rate and rhythm. No murmurs, click, rubs or gallops are noted. Abdomen: Bowel sounds present in all quadrants. The abdomen is soft, nontender, with no masses or organomegaly noted. No hernias are noted. Musculoskeletal: Joints are nontender, without swelling, redness, or effusions. Range of motion is observed to be normal. Pulses: Peripheral pulses are equal and palpable bilaterally. Extremities: No clubbing, cyanosis nor edema is noted. Neurologic: Gait and station normal. Cranial Nerves 2-12 intact. Motor strength grossly symmetrical and intact. No sensory loss. Balance normal. Skin: No rashes, ulcers, or lesions noted. Turgor is good. Skin color is good. Hair and nails are without abnormalities. Psych: Normal eye contact, affect and mood appropriate, and normal interactions. Patient is alert and appropriate to context. PLAN: Up to date on Health Maintenance Cont all meds, refills sent Labs today RTO 6 months Lipids, sooner PRN [facility] Medical History (Updated 09/04/24 @ 09:43 by Kelly Roger, SPACE CONTROL SUPERVISOR-BC) Back pain Stark's palsy Chest pain Complex ovarian cyst De Quervain's tenosynovitis, right Diverticulitis Dyslipidemia Encounter for drug screening Gastritis Generalized muscle ache Hx of mammogram (~03/2024) IBS (irritable bowel syndrome) Kidney stones Menopause Multiple sclerosis Myoma Neuropathy Physical exam Pneumonia Post-COVID syndrome Pulmonary embolism Spinal cord lesion Trigger finger of all digits of left hand Surgical History (Updated 04/30/24 @ 08:19 by Kelly Roger, SPACE CONTROL SUPERVISOR-BC) History of adenoidectomy History of breast augmentation History of section History of colonoscopy (~2023) History of shoulder surgery History of tonsillectomy History of umbilical hernia repair Family History (Updated 08/28/23 @ 11:00 by Char Chapman MA) Father Heart disease CVD (cardiovascular disease) Mother HTN (hypertension) Maternal Grandfather No problems noted. Maternal Grandmother No problems noted. Paternal Grandfather No problems noted. Paternal Grandmother CVD (cardiovascular disease) Brother No problems noted. Brother No problems noted. Son No problems noted. Son Type 1 diabetes Social History (Updated 04/19/23 @ 09:31 by Sharda Del Rosario CMA) Household Members: Children Household Members Other:: 2 sons, 2 dogs Housing: House Are you a primary home care assistant to a significant other at home: No Do you presently have visiting nurse or other home services: No Alcohol intake: never Patient Tobacco Use Status: Never used Tobacco e-Cigarette/Vaping Use: Never Used service: No Current occupational status: employed Current occupation: [employer] Current occupational exposures/hazards: Yes Sexual orientation: Unable to collect Gender identity: Unable to collect Cognitive needs: No Hearing needs: No Vision needs: No Questionnaire Thrive Questionnaire Date Thrive assessed: 03/02/24 I am a: Patient What is your living situation today?: I have a steady place to live Within the past 12 months, did the food you bought not last and you didn't have the money to get more?: Never true Within the past 12 months, did you worry whether your food would run out before you got money to buy more?: Never true Do you have trouble paying for medicines?: No Do you have trouble getting transportation to medical appointments?: No Do you have trouble paying your heating and electricity bill?: No Do you have trouble taking care of your child, family member or friend?: No Do you have trouble with day-to-day activities such as bathing, preparing meals, shopping, managing finances, etc.?: No Are you currently unemployed and looking for a job?: No Are you interested in more education?: Yes Please select the resources that you would like help with: None Currently or been in a relationship where the following occur: No concerns reported THRIVE Score: 0 SIRIA-7 AMB Questionnaire SIRIA-7 Date SIRIA - 7 assessed: 04/07/24 Source: Developed by Drs. Edson Grossman, Kim Solis, Woody Multani and colleagues, with an educational alan from [employer]. Physical exam (Primary Care) Tobacco/Smoking Status: Tobacco use Status Tobacco use date assessed 06/17/24 06/17/24 12:40 Patient Tobacco Use Status Never used Tobacco 06/17/24 12:40 e-Cigarette/Vaping Use Never Used 06/17/24 12:40 Thrive Assessment: Date of Thrive Assessment Date Thrive assessed 03/02/24 06/17/24 12:40 Currently or been in a relationship where the following occur: No concerns reported Coding Level of Care Code Est Pt Prev Care 40-64y(79946) Diagnoses Encounter for general adult medical examination without abnormal findings Z 00.00 Dyslipidemia E78.5 Menopause Z78.0 Multiple sclerosis G35 Grief at loss of child F43.21; Z63.4 Assessment & Plan Assessment & Plan (1) Encounter for general adult medical examination without abnormal findings: Onset Date: ~09/04/24 Code(s): Z00.00 - Encounter for general adult medical examination without abnormal findings Category: Medical (2) Dyslipidemia: Comment: ON ATORVASTATIN 20MG QD. RECHECK LIPIDS BEFORE NEXT VISIT Code(s): E78.5 - Hyperlipidemia, unspecified Category: Medical (3) Menopause: Comment: 2023 wnl Code(s): Z78.0 - Asymptomatic menopausal state Category: Medical (4) Multiple sclerosis: Comment: MANAGED BY [facility] DR. SERA KABA Repeat MRI spine in November 2022. MRI of brain scheduled in May 2023. Feels sx of MS mostly in lower ext. Meds she is on is currently managing her sx well. Code(s): G35 - Multiple sclerosis Category: Medical (5) Grief at loss of child: Code(s): F43.21 - Adjustment disorder with depressed mood; Z63.4 - Disappearance and of family member Category: Medical Plan , Orders: Orders Comprehensive Met. Panel Today E78.5 - Hyperlipidemia, unspecified, Z00.00 - Encounter for general adult medical examination without abnormal findings Vitamin D 25-OH Total Today E78.5 - Hyperlipidemia, unspecified, Z00.00 - Encounter for general adult medical examination without abnormal findings Lipid Panel Today E78.5 - Hyperlipidemia, unspecified, Z00.00 - Encounter for general adult medical examination without abnormal findings Hemoglobin A1c Today E78.5 - Hyperlipidemia, unspecified, Z00.00 - Encounter for general adult medical examination without abnormal findings Microalbumin, Random (w Creat) Today E78.5 - Hyperlipidemia, unspecified, Z00.00 - Encounter for general adult medical examination without abnormal findings TSH reflex Free T4 Today E78.5 - Hyperlipidemia, unspecified, Z00.00 - Encounter for general adult medical examination without abnormal findings Vitamin B12 and Folate Today E78.5 - Hyperlipidemia, unspecified, Z00.00 - E ncounter for general adult medical examination without abnormal findings Medications: New duloxetine 60 mg PO DAILY 90 caps 2RF Refilled atorvastatin 20 mg PO BEDTIME 90 tabs 2RF Discontinued ipratropium-albuterol 20-100 mcg/actuation (Combivent Respimat) space evenly during waking hours Discontinued Reason: Patient Completed Course 1 puff inhalation QID 4 grams 0RF ondansetron Discontinued Reason: Patient Completed Course 8 mg PO Q8H 20 tabs 0RF K29.00 - Acute gastritis without bleeding hydroxyzine HCl 1/2 to 1 tab 3 x day as needed for anxiety Discontinued Reason: Patient Completed Course 25 mg PO TID PRN 90 tabs 0RF anxiety lorazepam (Ativan) Discontinued Reason: Patient Completed Course 0.5 mg PO BID PRN 30 tabs 1RF anxiety Patient Instructions: Health screenings for women You should visit your health care provider from time to time, even if you are healthy. The purpose of these visits is to: Screen for medical issues Assess your risk for future medical problems Encourage a healthy lifestyle Update vaccinations and other preventive care services Help you get to know your provider in case of an illness Information Even if you feel fine, you should still see your provider for regular checkups. These visits can help you avoid problems in the future. For example, the only way to find out if you have high blood pressure is to have it checked regularly. High blood sugar and high cholesterol levels also may not have any symptoms in the early stages. A simple blood test can check for these conditions. There are specific times when you should see your provider or receive specific health screenings. The [place] Preventive Services Task Force publishes a list of recommended screenings. Below are screening guidelines for women ages 18 to 39. BLOOD PRESSURE SCREENING Your blood pressure should be checked at least once every 3 to 5 years if: Your blood pressure is in the normal range (top number less than 120 mm Hg and bottom number less than 80 mm Hg) You don't have risk factors for high blood pressure Ask your provider if you need your blood pressure checked more often if: The top number is 120 to 129 mm Hg or the bottom number is 70 to 79 mm Hg You have diabetes, heart disease, kidney problems, are overweight, or have certain other health conditions You have a first-degree relative with high blood pressure You are Black You had high blood pressure during a If the top number is 130 mm Hg or greater or the bottom number is 80 mm Hg or greater, this is considered stage 1 hypertension. Schedule an appointment with your provider to learn how you can reduce your blood pressure. Watch for blood pressure screenings in your area. Ask your provider if you can stop in to have your blood pressure checked. BREAST CANCER SCREENING Experts do not agree about the benefits of breast self-exams in finding breast cancer or saving lives. Talk to your provider about what is best for you. A screening mammogram is not recommended for most women under age 40. Your provider may discuss and recommend mammograms, MRI scans, or ultrasounds if you have an increased risk for breast cancer, such as: A mother or sister who had breast cancer at a young age (most often starting screening earlier than the age the close relative was diagnosed) You carry a high-risk genetic marker CERVICAL CANCER SCREENING Cervical cancer screening should start at age 21 years unless your provider advi ses otherwise. After the first test: Women ages 21 through 29 should have a Pap test every 3 years. Exoprts do not agree on whether HPV testing is recommended for this age group. Women ages 30 through 65 should be screened with either a Pap test every 3 years or the HPV test every 5 years or both tests every 5 years (called cotesting ). Women who have been treated for precancer (cervical dysplasia) should continue to have Pap tests for 20 years after treatment or until age 65, whichever is longer. If you have had your uterus and cervix removed (total hysterectomy), and you have not been diagnosed with cervical cancer or precancer (high grade cervical neoplasia), you do not need cervical cancer screening. CHOLESTEROL SCREENING Cholesterol screening should begin at: Age 45 for women with no known risk factors for coronary heart disease Age 20 for women with known risk factors for coronary heart disease Repeat cholesterol screening should take place: Every 5 years for women with normal cholesterol levels More often if changes occur in lifestyle (including weight gain and diet) More often if you have diabetes, heart disease, kidney problems, or certain other conditions DIABETES SCREENING You should be screened for diabetes starting at age 35 and then repeated every 3 years if you have no risk factors for diabetes. Screening may need to start earlier and be repeated more often if you have other risk factors for diabetes, such as: You have a first degree relative with diabetes. You are overweight or have obesity. You have high blood pressure, prediabetes, or a history of heart disease. Screening for diabetes should be done if you are planning to become and you are overweight and have other risk factors such as high blood pressure. DENTAL EXAM Go to the dentist once or twice every year for an exam and cleaning. Your dentist will evaluate if you need more frequent visits. EYE EXAM Have an eye exam every 5 to 10 years before age 40. If you have vision problems, have an eye exam every 2 years or more often if recommended by your provider. You should have an eye exam that includes an examination of your retina (back of your eye) at least every year if you have diabetes. IMMUNIZATIONS Commonly needed vaccines include: Flu shot: get one every year. COVID-19 vaccine: ask your provider what is best for you. Tetanus-diphtheria and acellular pertussis (Tdap) vaccine: have one at or after age 19 as one of your tetanus-diphtheria vaccines if you did not receive it as an adolescent. Tetanus-diphtheria: have a booster (or Tdap) every 10 years. Varicella vaccine: receive 2 doses if you never had chickenpox or the varicella vaccine. Hepatitis B vaccine: receive 2, 3, or 4 doses, depending on your exact circumstances. Measles, mumps, and rubella (MMR) vaccine: receive 1 to 2 doses if you are not already immune to MMR. Your provider can tell you if you are immune. Ask your provider about the human papillomavirus (HPV) vaccine if: You have not received the HPV vaccine in the past You have not completed the full vaccine series (you should catch up on this shot) Ask your provider if you should receive other immunizations if you have certain health problems that increase your risk for some diseases such as pneumonia. INFECTIOUS DISEASE SCREENING Women who are sexually active should be screened for chlamydia and gonorrhea up until age 25. Women 25 years and older should be screened for chlamydia and gonorrhea if at high risk. Screening for hepatitis C: All adults ages 18 to 79 should get a one-time test for hepatitis C. people should be screened at every . Screening for human immunodeficiency virus (HIV): All people ages 15 to 65 should get a one-time test for HIV. Depending on your lifestyle and medical history, you may also need to be screened for infections such as syphilis and HIV, as well as other infections. PHYSICAL EXAM All adults should visit their provider from time to time, even if they are healthy. The purpose of these visits is to: Screen for disease Assess your risk of future medical problems Encourage a healthy lifestyle Update your vaccinations and other preventive care services Maintain a relationship with a provider in case of an illness Your height, weight, and BMI should be checked at every exam. During your exam, your provider may ask you about: Depression and anxiety Diet and exercise Alcohol and tobacco use Safety issues, such as using seat belts, smoke detectors, and intimate partner violence Your medicines and risk for interactions SKIN SELF-EXAM Your provider may check your skin for signs of skin cancer, especially if you're at high risk, such as if you: Have had skin cancer before Have close relatives with skin cancer Have a weakened immune system OTHER SCREENING Talk with your provider about colon cancer screening if you have a strong family history of colon cancer or polyps, or if you have had inflammatory bowel disease or polyps yourself. Routine bone density screening of women under 40 is not recommended.
--- OUTSIDE RECORDS SUMMARY | 2024-09-04 07:58 | XMS_ITS | Encounter Summary ---
Author Organization [facility] Address [address] [place] [address] Phone Care Team Providers Care Product Development Assistant Name Role Phone Kelly Perez BUSINESS CASE ANALYST Primary Care Provider Constanitno Jain BUSINESS CASE ANALYST Primary Care Provider + Encounter Details Date Type Department Care Team (Late st Contact Info) Description 12/03/2018 Procedure Pass [facility] MR Imaging, [address] [place] [address] Social History Tobacco Use Types Packs/Day Years Used Date Smoking Tobacco: Never Smokeless Tobacco: Never Alcohol Use Standard Drinks/Week Comments Yes 0 (1 standard drink = 0.6 oz pur e alcohol) socially Comments No Sex and Gender Information Value Date Recorded Sex Assigned at Female 09/04/2019 8:57 PM EDT Legal Sex Female 5:26 PM EST Gender Identity Female 09/04/2019 8:57 PM EDT Sexual Orientation Straight 09/04/2019 8: 57 PM EDT documented as of this encounter Plan of Treatment Upcoming Encounters Date Type Department Care Team (Late st Contact Info) Description 09/12/2024 2:15 PM EDT Infusion [facility] [place] [address] [place] [address] Tony Bah MD [address] [place] [address] [email or web address] 10/21/2024 1:30 PM EDT Office Visit [facility], Department of Neurology [address] [place] [address] Tony Bah MD [address] [place] [email or web address] documented as of this encounter Visit Diagnoses Not on filedocumented in this encounter Care Teams Product Development Assistant Relationship Specialty Start Date End Date Kelly Perez NP [address] [place] [address] [place] [phone] [email or web address] PCP - General Family Medicine 08/26/18 1 03/14/19 Constantino Jain NP [address] [facility] [place] [address] [email or web address] PCP - General Family Medicine 01/13/20 documented as of this encounter Additional Source Comments The information contained in this document represents components of the legal health record. It is not the complete legal health record.[facility]
--- OUTSIDE RECORDS SUMMARY | 2024-09-04 07:58 | XMS_ITS | Encounter Summary ---
Author Organization [facility] Address [address] [place] [address] Care Team Providers Care Grants Specialist Name Role Phone Pcp, No Primary Care Provider Unavailabl e Encounter Details Date Type Department Care Team (Late st Contact Info) Description 05/14/2024 Scanned Document [address] [facility] [place] [address] Radiology, Scan Social History Tobacco [...] on filedocumented in this encounter Care Teams Grants Specialist Relationship Specialty Start Date End Date Pcp, No PCP - General General Medicine 05/06/23 documented as of this encounter
--- OUTSIDE RECORDS SUMMARY | 2024-09-04 07:58 | XMS_ITS ---
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 Player Name Role Phone Unavailable Primary Care Physician Unavailab le History Of Present Illness No Data Allergies, Adverse Reactions, Alerts Substance RxNorm Reaction(s) Severity Status Start Da te Demerol unspecified active Morphine Sulfate unspecified active Percocet unspecified active Medications Medication Generic Name RxNorm Strength Strength Unit Route Dose Dose Form Frequency Date Started Date Ended Status Indication Sig desonide desonide 092967 0.05 % Topica l cream 02/20/19 25 active Appl y AM and PM ecze ma arou nd eyes for 5-7 days when flar ing Ocrevus ocrelizu mab Intrav enous active duloxetine duloxeti ne 60 mg Oral capsu le,de layed relea se (ente kendrick coate d) active Zyrtec cetirizi ne 10 mg Oral capsu le active [place] Allergy NULL 06/27/19 18 suspend ed Azithromyci n NULL 05/22/19 15 active Biotin NULL 06/27/19 18 active Cheratussin AC NULL 05/22/19 15 active Clindamycin Phosphate NULL 12 active Clobetasol Propionate NULL 06/01 15 active Differin NULL 07/04/19 11 active Duac NULL 07/04/19 11 active Efudex NULL 08/21/19 12 active Fluocinonid e-E NULL 05/22/19 15 suspend ed Fluticasone Propionate NULL 05/21 15 active HYDROmorpho ne HCl NULL 05/22/19 15 active Lcdsalclob1 0 NULL 04/15/19 08 active Minocycline HCl NULL 07/04/19 11 active Multivitami ns NULL 06/27/19 18 active Protopic NULL 08/20/19 07 active Tridesilon NULL 08/10/19 07 active Vitamin D3 NULL 05/16/20 18 active Problems Problem Code Type Status Date of Diagnosis Da te of Resolution Patient encounter status (finding) 730492348(SN OMED) Diagnosis active 09/01/2024 Patient encounter status (finding) 117026314(SN OMED) Diagnosis active 05/12/2024 Atopic dermatitis (disorder) 17947411(SNO MED) Diagnosis active 02/21/2024 Patient encounter status (finding) 987241439(SN OMED) Diagnosis active 07/30/2022 Patient encounter status (finding) 239056721(SN OMED) Diagnosis active 08/26/2021 Patient encounter status (finding) 542522335(SN OMED) Diagnosis active 07/01/2021 Patient encounter status (finding) 447378171(SN OMED) Diagnosis active 05/08/2021 Encounter for procedure for purposes other than remedying health state, unspecified Z41.9(ICD-10 ) Diagnosis active 04/14/2020 Encounter for procedure for purposes other than remedying health state, unspecified Z41.9(ICD-10 ) Diagnosis active 10/24/2019 Encounter for procedure for purposes other than remedying health state, unspecified Z41.9(ICD-10 ) Diagnosis active 10/15/2019 Neoplasm of uncertain behavior of skin (disorder) 65411298(SNO MED) Diagnosis active 08/12/2017 Other specified health status Z78.9(ICD-10 ) Diagnosis active 06/26/2017 Benign neoplasm of skin of upper limb (disorder) 51611026(SNO MED) Diagnosis active 06/26/2017 Clinical finding (finding) 124927771(SN OMED) Diagnosis active 09/14/2016 Clinical finding (finding) 435479027(SN OMED) Diagnosis active 09/14/2016 Senile hyperkeratosis (disorder) 812532137(SN OMED) Diagnosis active 09/14/2016 History of clinical finding in subject (situation) 508100470(SN OMED) Problem active Eczema (disorder) 01256014(SNO MED) Problem active Results No data Encounters Service provided at [facility], [address] [place] [phone]. Office phone number is [phone]. Office fax number is [phone]. Encounter Diagnosis Location Date / Time Type Cosmetic (Z41.9) [facility] 09/01/2024 13:00:00 [facility] Reason For Referral No data Procedures Procedure Date Documentation of past medical history (p rocedure) Documentation of past medical history (p rocedure) Documentation of past medical history (p rocedure) Documentation of past medical history (p rocedure) Documentation of past medical history (p rocedure) Documentation of past medical history (p rocedure) Documentation of past medical history (p rocedure) Documentation of past medical history (p rocedure) Review Of Systems No Data Assessment 1.CosmeticFacial: face; Miller (Use numbers only, no special characters or $) - 75.00; Exfoliation Type - none. Plan of Care Code Detail Instructions [id number] desonide 0.05 % topical cream Ap ply AM and PM eczema around eyes for 5-7 days when flaring Instructions No Data Social History Code Activity Start Date End Date [id number] (SNOMED) Never smoker Sex female Sexual orientation Unspecified Gender identity Unspecified Vital Signs No data
--- OUTSIDE RECORDS SUMMARY | 2024-09-04 07:58 | XMS_ITS ---
Author Name [facility] Organization Unknown Encounters Encounter Type Encounter Reason Primary Diagnosis Location Date Ambulatory [facility] [place] 05/08/2023 Care Team Organization Name Specialty Phone Email Start Date End Da te [facility] PCP Tram Operator 05/08/2023 04/29/2024 [facility] NO PCP Primary Care 05/06/2023
[2024-09-04 08:01] VITALS: BP 102/67; PULSE 72; RESP 12; TEMP 36.2; O2SAT 99; BMI 23.2
== END 2024-09-04 08:54 | disposition home or self-care (01) ==
LOC: HO.HMCFM 07:55
PROVIDERS: PCP Nurse Practitioner Family; Visit Provider Nurse Practitioner Family
DX: Z00.00 Encounter for general adult medical examination without abnormal findings (principal); E78.5 Hyperlipidemia, unspecified; Z78.0 Asymptomatic menopausal state; G35 Multiple sclerosis; F43.21 Adjustment disorder with depressed mood; Z63.4 Disappearance and death of family member

== ENCOUNTER 2024-09-04 09:12 | Outpatient (REF) | payer BC, SELFPAY ==
[2024-09-04 11:27] LABS: Hemoglobin A1C 127.2203 umol/L; Total Hemoglobin (HGBA1C) 3395.9342 umol/L
[2024-09-04 11:44] LABS: Alanine Aminotransferase 20 U/L (0-31); Albumin Level 4.6 g/dL (3.5-5.0); Alkaline Phosphatase 88 U/L (39-117); Anion Gap 10 (12-20); Aspartate Amino Transferase 23 U/L (5-31); Blood Urea Nitrogen 20 mg/dL (9-16); Calcium 9.2 mg/dL (8.4-10.2); Carbon Dioxide 28 mmol/L (22-29); Chloride 109 mmol/L (96-108); Cholesterol 219 mg/dL (<200); Estimated Glomerular Filt Rate > 60; HDL Cholesterol 80 mg/dL (>40); Potassium 4.1 mmol/L (3.3-5.1); Sodium 143 mmol/L (135-145); Total Protein 6.9 g/dL (6.5-8.0); Triglycerides 54 mg/dL (<150)
[2024-09-04 12:03] LABS: Folate 9.9 ng/mL (> or = 4.0); Vitamin B12 1826 pg/mL (200-900)
[2024-09-04 12:27] LABS: Microalbum/Creatinine Ratio Ur 10.0 ug/mg cr (<30)
== END 2024-09-04 09:13 | disposition home or self-care (01) ==
LOC: HO.WFDLDS 09:12
PROVIDERS: Visit Provider Nurse Practitioner Family
DX: Z00.00 Encounter for general adult medical examination without abnormal findings (principal); E78.5 Hyperlipidemia, unspecified
CPT/HCPCS: 36415; 80053; 80061; 82043; 82306; 82570; 82607; 82746; 83036; 84443

== ENCOUNTER 2025-01-25 10:34 | Outpatient (REF) | payer BC, SELFPAY ==
--- NOTE | ~2025-01-25 | XR_ITS ---
EXAMINATION: XR CHEST CLINICAL INFORMATION: R05.9 - Cough, unspecified COMPARISON: 11/30/2020 TECHNIQUE: 2 views of the chest were obtained. FINDINGS: No significant abnormality is noted involving the heart, lungs, mediastinum, bony thorax or soft tissues. XR/XR chest 2V IMPRESSION: No acute disease Electronically signed by: Jasbir Chilel MD 01/25/2025 12:53 PM [facility]
== END 2025-01-25 10:35 | disposition home or self-care (01) ==
LOC: HO.HMGCX 10:34
PROVIDERS: PCP Nurse Practitioner Family; Visit Provider Nurse Practitioner Family
DX: R05.1 Acute cough (principal); J20.9 Acute bronchitis, unspecified
CPT/HCPCS: 71046

== ENCOUNTER 2025-01-25 10:34 | Outpatient (AMB) | payer OTHER, SELFPAY ==
--- NOTE | 2025-01-25 10:35 | MHC.PC.OV ---
Vital Signs 01/25/25 10:41 01/25/25 11:13 Height 5 ft 4 in Weight 144 lb 2 oz BMI 24.7 BP 124/72 Blood Pressure Location Lt brachial Position Sitting Respiration 13 Pulse 78 Pulse Source Pulse Oximeter Temp 97.5 F Temp Source Oral Pulse Oximetry (%) 92 97 Oxygen Delivery Method Room Air Room Air Intake Visit Reasons: chronic cough Intake Note: Patent c/o deep chronic cough non stop x 4 weeks and also patient c/o neck and back hurting from coughing so much. Patient has not been sleeping because of her cough. Physician Office Secretary Required: No Allergies acetaminophen (From Percocet) Allergy (Intermediate, Verified 01/25/25 10:47) Hives morphine (MORPHINE) Allergy (Intermediate, Verified 01/25/25 10:47) HIVES, vomiting oxycodone (OXYCODONE) Allergy (Intermediate, Verified 01/25/25 10:47) VOMITING benzonatate Allergy (Unknown, Verified 01/25/25 10:47) headaches meperidine (From Demerol) Allergy (Unknown, Verified 01/25/25 10:47) swelling NSAIDS (Non-Steroidal Anti-Inflamma Allergy (Unknown, Verified 01/25/25 10:47) swelling meloxicam Adverse Reaction (Unknown, Verified 01/25/25 10:47) ankle swelling paroxetine (Paxil) Adverse Reaction (Unknown, Verified 01/25/25 10:47) headaches Medication List - Last Reconciled 01/25/25 by Kelly Roger, [facility]- ascorbic acid (vitamin C) 1 g PO DAILY atorvastatin 20 mg PO BEDTIME biotin 5,000 mcg PO DAILY cetirizine (Zyrtec) 10 mg PO DAILY PRN cholecalciferol (vitamin D3) 50 mcg PO DAILY duloxetine 60 mg PO DAILY fluocinonide 0.05% 1 appl topical BID-QID PRN gabapentin 200 mg (2 x 100 mg) PO BEDTIME 90 days ocrelizumab (Ocrevus) 600 mg IV [id number] vitamin B complex 1 tab PO DAILY Tobacco use date assessed: 01/25/25 Dental Screening Dental Screen Date: 01/25/25 Did you have a dental visit in the last 12 months?: Yes Did you have a dental problem in the last 6 months where you did not have access to dental care?: No Was dental information given to patient?: Patient has dentist HPI HPI Comments History of Present Illness Details 59-year-old female with hyperlipidemia, left knee medial meniscus tear, right de Quervains tenosynovitis, left ring trigger finger, chronic R meniscal tear, multiple sclerosis, COVID pneumonia with PE October of 2021, Stark's palsy, diverticulitis, IBS, renal stones neuropathy, menopause Status post adenoidectomy, breast augmentation, , shoulder surgery, tonsillectomy, umbilical hernia repair 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 Repeat 10 year ... 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 Acute Bronchitis: - The patient reports a cough that started a couple of days before Thanksgi, approximately a month ago, which she describes as worse than a similar episode last year. - The cough has progressively worsened. - She was exposed to a coworker with walking pneumonia two months prior to her illness onset. - Associated symptoms include wheezing, chest soreness, and back soreness or a burning sensation from coughing. - She denies having a fever but did not take her temperature. - The cough is severe enough to cause urinary incontinence and a sensation of wanting to vomit. - Her sleep is significantly disturbed; she reports being awake all night and coughing for seven hours straight last night. - Home treatments have included a Ventolin inhaler, Mucinex, and Robitussin with codeine, none of which have provided relief. - The patient has a history of double pneumonia with COVID-19, and she notes that her current cough is reminiscent of that illness. Past Medical History - History of double pneumonia with COVID-19. Review of Systems - Respiratory: Reports a productive cough for one month, worsening over time. - Reports hearing herself wheeze. - Constitutional: Denies fever, but did not measure her temperature. - Musculoskeletal: Reports soreness in her chest and back, with a burning sensation in her back from coughing. - Denies generalized myalgias and arthralgias. - Genitourinary: Reports stress urinary incontinence with severe coughing. - Gastrointestinal: Reports feeling like she wants to vomit from coughing. Physical Exam General: Well developed, well nourished, in no acute distress. Appears stated age. Head: Normocephalic, atraumatic. Eyes: Pupils are equal, round and reactive to light and accommodation. Conjunctivae are clear. Vision grossly normal. Ears: TM intact w/ mucous bilat Nose: turbinated erythematous and edematous, mild congestion Pharynx mild erythema, no PND or exudate Lungs: coarse rhonci throughout w/ provoked cough w/ deep breaths. Heart: Regular rate and rhythm. No murmurs, click, rubs or gallops are noted. Psych: Mood and affect appropriate Diagnostic results Pending Medical Decision Making THe patient is a 59-year-old female with a one-month history of a progressively worsening cough, now associated with wheezing and significant sleep disturbance. She has tried [id number] and prescription medications, including a Ventolin inhaler and Robitussin with codeine, without improvement. Physical exam is notable for wheezing and coarse congestion throughout her lungs. Given the duration and severity of symptoms, lack of response to initial therapies, and abnormal lung auscultation, I am concerned about a possible pneumonia. A chest X-ray is ordered to confirm or rule out pneumonia and assess its severity, which will guide the duration of work restriction. While awaiting the imaging results, I will start empiric treatment with oral antibiotics (Augmentin) and a course of oral steroids (prednisone) to address both a likely infectious and inflammatory component of her illness. The patient needs to rest and will be provided a work note. Plan 1. Acute Bronchitis - A chest X-ray was ordered for today to rule out pneumonia. - Prednisone 40 mg (two tablets) once daily for seven days was prescribed. - Augmentin was prescribed, one tablet twice daily for seven days, to be taken with food. - The patient was advised to continue her current supportive care measures. - A work note will be provided. - Follow-up on X-ray results will be communicated via the patient portal. - If the chest X-ray is negative for pneumonia, the patient is advised to stay out of work for 48 hours and can then return without restrictions. - If the chest X-ray is positive for single-lobe pneumonia, she can return to work after 48 hours but should not work a double shift. - If the chest X-ray shows multilobar pneumonia, the plan will be different. - Any positive chest X-ray finding will require a repeat X-ray in one month. Patient Instructions - Go to the outpatient [facility] department in [facility] for a chest X-ray. You do not need an appointment. - You have been prescribed Prednisone. Take two tablets at the same time once a day for 7 days. Take it with food. - You have also been prescribed an antibiotic called Augmentin. Take one tablet twice a day for 7 days. It is important to take this with food to avoid stomach upset and diarrhea. - Continue taking Mucinex and using your Ventolin inhaler as you have been. - You should not work today or tomorrow. You need to rest. - If the X-ray does not show pneumonia, you can return to work on Saturday and can work your double shift. - If the X-ray does show pneumonia, you can still go back to work on Saturday but you should not work a double shift. Just do one shift. - I will contact you through the online patient portal with your X-ray results and any further instructions. 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 Consent Patient was informed and verbally consented to the use of an ambient scribe for clinic note documentation during this visit. Total time spent caring for the patient today was 30 minutes. This includes time spent before the visit reviewing the chart, time spent during the visit, and time spent after the visit on documentation, reviewing laboratory results, diagnostic imaging, medications, performing a medically necessary evaluation, counseling on diagnoses, care coordination, ordering appropriate tests, ordering appropriate medications, review of tests performed by other providers, reporting test results with the patient, communication with other healthcare providers. [facility] Medical History (Updated 01/25/25 @ 11:24 by Kelly Roger, BOOKY-) Back pain Stark's palsy Chest pain Complex ovarian cyst De Quervain's tenosynovitis, right Diverticulitis Dyslipidemia Encounter for drug screening Gastritis Generalized muscle ache Hx of mammogram (~03/2024) IBS (irritable bowel syndrome) Kidney stones Menopause Multiple sclerosis Myoma Neuropathy Physical exam Pneumonia Post-COVID syndrome Pulmonary embolism Spinal cord lesion Trigger finger of all digits of left hand Surgical History (Updated 04/30/24 @ 08:19 by SHADI Vogel-) History of adenoidectomy History of breast augmentation History of section History of colonoscopy (~2023) History of shoulder surgery History of tonsillectomy History of umbilical hernia repair Family History (Updated 08/28/23 @ 11:00 by Char Chapman MA) Father Heart disease CVD (cardiovascular disease) Mother HTN (hypertension) Maternal Grandfather No problems noted. Maternal Grandmother No problems noted. Paternal Grandfather No problems noted. Paternal Grandmother CVD (cardiovascular disease) Brother No problems noted. Brother No problems noted. Son No problems noted. Son Type 1 diabetes Social History (Updated 04/19/23 @ 09:31 by Sharda Del Rosario [facility]) Household Members: Children Household Members Other:: 2 sons, 2 dogs Both parents involved: No Caregiver staying overnight: No Housing: House Are you a primary rental boats caretaker to a significant other at home: No Do you presently have visiting nurse or other home services: No 75 years or older and lives alone: No Alcohol intake: never Patient Tobacco Use Status: Never used Tobacco e-Cigarette/Vaping Use: Never Used Second Hand Smoke Exposure: No service: No Current occupational status: employed Current occupation: [employer] Current occupational exposures/hazards: Yes Sexual orientation: Unable to collect Gender identity: Unable to collect Cognitive needs: No Hearing needs: No Vision needs: No Questionnaire Thrive Questionnaire Date Thrive assessed: 03/02/24 I am a: Patient What is your living situation today?: I have a steady place to live Within the past 12 months, did the food you bought not last and you didn't have the money to get more?: Never true Within the past 12 months, did you worry whether your food would run out before you got money to buy more?: Never true Do you have trouble paying for medicines?: No Do you have trouble getting transportation to medical appointments?: No Do you have trouble paying your heating and electricity bill?: No Do you have trouble taking care of your child, family member or friend?: No Do you have trouble with day-to-day activities such as bathing, preparing meals, shopping, managing finances, etc.?: No Are you currently unemployed and looking for a job?: No Are you interested in more education?: Yes Please select the resources that you would like help with: None Currently or been in a relationship where the following occur: No concerns reported THRIVE Score: 0 SIRIA-7 AMB Questionnaire SIRIA-7 Date SIRIA - 7 assessed: 04/07/24 Source: Developed by Drs. Edson Grossman, Kim Solis, Woody Multani and colleagues, with an educational alan from [employer]. Physical exam (Primary Care) Vital Signs: Last Vital Signs Temp 97.5 F 01/25/25 10:41 Pulse 78 01/25/25 10:41 Resp 13 01/25/25 10:41 BP 124/72 01/25/25 10:41 Pulse Ox 92 01/25/25 10:41 Oxygen Delivery Method Room Air 01/25/25 10:41 BMI result Body Mass Index 24.7 Tobacco/Smoking Status: Tobacco use Status Tobacco use date assessed 01/25/25 01/25/25 10:38 Patient Tobacco Use Status Never used Tobacco 01/25/25 10:38 e-Cigarette/Vaping Use Never Used 01/25/25 10:38 Thrive Assessment: Date of Thrive Assessment Date Thrive assessed 03/02/24 01/25/25 10:38 Currently or been in a relationship where the following occur: No concerns reported Coding Level of Care Code Est Pt Level 4 (69307) Add On Problem Visit Only Diagnoses Acute cough R05.1 Cough type: acute Assessment & Plan Assessment & Plan (1) Cough: Code(s): R05.9 - Cough, unspecified Category: Medical Qualifiers: Cough type: acute Qualified Code(s): R05.1 - Acute cough Plan . Orders: Orders Comprehensive Met. Panel Today E78.5 - Hyperlipidemia, unspecified, G35 - Multiple sclerosis, Z78.0 - Asymptomatic menopausal state Lipid Panel Today E78.5 - Hyperlipidemia, unspecified, G35 - Multiple sclerosis, Z78.0 - Asymptomatic menopausal state Vitamin D 25-OH Total Today E78.5 - Hyperlipidemia, unspecified, G35 - Multiple sclerosis, Z78.0 - Asymptomatic menopausal state XR chest 2V Today R05.9 - Cough, unspecified Medications: New prednisone 40 mg (2 x 20 mg) PO DAILY 14 tabs 0RF amoxicillin-pot clavulanate 875-125 mg 1 tab PO BID 14 tabs 0RF 7 days
[2025-01-25 10:41] VITALS: BP 124/72; PULSE 78; RESP 13; TEMP 36.4; O2SAT 92; BMI 24.7
[2025-01-25 11:13] VITALS: O2SAT 97
== END 2025-01-25 11:20 | disposition home or self-care (01) ==
PROVIDERS: PCP Nurse Practitioner Family; Visit Provider Nurse Practitioner Family
DX: R05.1 Acute cough (principal)

== ENCOUNTER → 2025-01-25 12:01 | Outpatient (BNV) | payer BC, SELFPAY | PROVIDERS: PCP Nurse Practitioner Family; Visit Provider Radiology Diagnostic Radiology | DX: R05.9 Cough, unspecified (principal) | CPT/HCPCS: 71046 ==